=== PATIENT | female | born 1985 | race Caucasian/White ===

== ENCOUNTER 2019-10-22 22:58 | Observation (INO) | payer BC, SELFPAY ==
--- NOTE | ~2019-10-22 | XR_ITS ---
EXAMINATION: XR ankle RT min 3V DATE: 10/22/2019 23:16 INDICATION: Right ankle pain post fall TECHNIQUE: Anteroposterior, oblique, mortise, and lateral views of the right ankle were obtained. COMPARISON: None. FINDINGS: There is an oblique fracture through the distal fibula with a fracture plane exiting medially at the level of the tibiotalar joint. There is up to 4 mm posterior displacement. Transverse fracture across the medial malleolus with up to 6 mm distraction. Coronally oriented fracture across the posterior m alleolus which comprises approximately 20% of the articular surface area of the tibial plafond with 2 mm depression of the articular surface. No fracture of the talar dome or visualized bones of the alban t. There is mild widening of the anterior and medial aspect of the tibiotalar joint space. Remaining joint spaces are normal. Diffuse soft tissue swelling about the ankle. Ankle joint effusion is presen t. IMPRESSION: 1. Trimalleolar fracture at the right ankle with mild displacement along each of the fractures. Reviewed, dictated and finalized at location A. IMPRESSION: 1. Trimalleolar fracture at the right ankle with mild displacement along each o f the fractures.
--- NOTE | ~2019-10-22 | XR_ITS ---
EXAMINATION: XR ankle RT 2V DATE: 10/23/2019 00:01 INDICATION: Postreduction right ankle trimalleolar fracture. TECHNIQUE: Anteroposterior, oblique, mortise, and lateral views of the right ankle were obtained. COMPARISON: None. FINDINGS: Interval reduction and splinting of the previously detailed right ankle trimalleolar fracture. Slight decrease in the mild distraction of the medial malleolus fracture. The mild posterior displacement o f the lateral malleolar fracture and mild depression of the posterior malleolar fracture appear uncha nged. No new fractures identified. Normal alignment in the visualized right mid and hindfoot. IMPRESSION: 1. Slight improvement in mild displacement post reduction and splinting of a right ankle trimalleolar fracture. Reviewed, dictated and finalized at location A. IMPRESSION: 1. Slight improvement in mild displacement post reduction and splinting of a ri ght ankle trimalleolar fracture.
--- NOTE | ~2019-10-22 | CT_ITS ---
EXAMINATION: CT ankle RT wo con DATE: 10/23/2019 08:28 INDICATION: Right ankle trimalleolar fracture TECHNIQUE: High resolution computed tomography (CT) of the right ankle was performed without intraven ous contrast. Additional sagittal and coronal reconstructions were performed. Automated exposure cont rol and iterative reconstruction technique were employed. The dose-length product was 311.15 mGy-cm. COMPARISON: None FINDINGS: Oblique fracture of the distal fibula extending to the medial cortex at the level of the tibiotalar j oint line. There is a 3 mm proximal and 5 mm posterior displacement with negligible anterior angulati on. Transverse fracture across the medial malleolus also the level of the tibiotalar joint line. There is 9 mm distraction at the anterior margin of the fracture, 3 mm at the posterior margin resulting in m ild posterior angulation. Minimally displaced comminuted posterior malleolus fracture. The fragment compressing the largest por tion of the articular surface measures 2.5 x 1.0 cm involving the medial two thirds of the posterior margin of the tibial plafond and is depressed approximately 2 mm. There are few tiny fragments are mi nimally portion of the articular surface along the posterior rim of the lateral third. There is a sec ond larger fragment involving the mid to lateral thirds of the posterior malleolus cephalad to the ar ticular surface of the tibial plafond but which doesn't involve a portion of the posterior aspect of the articulation with the distal fibula. Normal alignment and joint space with no evident fracture within the visualized right mid and hindfoo t. Small tibiotalar joint effusion with a few tiny bone fragments at the anterior recess of the joint space. Soft tissue swelling with subcutaneous edema about the ankle. The flexor and extensor tendons are unremarkable. IMPRESSION: 1. Mildly displaced trimalleolar fracture at the right ankle. Reviewed, dictated and finalized at location A.
--- NOTE | 2019-10-22 23:02 | ED.LOWEXIN ---
HPI - Extremity Injury (Lower) General Chief Complaint: Extremity Injury, Lower Stated Complaint: right ankle/foot pain Time Seen by Provider: 10/22/19 23:00 Source: patient and RN notes reviewed Mode of arrival: other Limitations: no limitations History of Present Illness HPI Narrative: Pt is a 34 y/o female who presents to the ED with c/o right ankle pain that began about 15 minutes ago after she slipped off the edge of the last stair in her staircase. Pt states that she heard a cracking noise. Pt denies her pain radiating to her knee. Pt also denies numbness and tingling. complaint: ankle injury Onset (ago): minute(s) (15) Place: home Context: fall Associated symptoms: other (crack sensation) Other symptoms: none Related Data Allergies Allergy/AdvReac Type Severity Reaction Status Date / Time gluten AdvReac Unknown GI UPSET Verified 04/12/18 19:00 Review of Systems Review of Systems: All systems reviewed & are unremarkable except as noted in HPI and below Musculoskeletal: Musculoskeletal: Reports other (right ankle pain) Neurologic: Denies numbness and Denies tingling PMFSH Past Medical History Medical History (Updated 10/22/19 @ 23:57 by Naty Diaz) Anemia Migraines PCOS (polycystic ovarian syndrome) UTI (urinary tract infection) Surgical History Surgical History (Updated 10/22/19 @ 23:09 by Naty Diaz) H/O bone marrow transplant x5 Hx of section Hx of tonsillectomy Myringotomy tube(s) status Family History Family History (Updated 10/22/19 @ 23:11 by Naty Diaz) Mother Hypertension Diabetes mellitus Father Kidney stone History of nephrectomy Social History Social History (Updated 10/22/19 @ 23:10 by Naty Diaz) Smoking status: Unknown if ever smoked Exam Narrative: Exam Narrative: APPEARANCE: No acute distress, nontoxic, resting in bed Eyes: EOMI HEENT: Normocephalic, atraumatic, RESPIRATORY: No respiratory distress MUSCULOSKELETAl: Right ankle is diffusely tender to palpation no tenderness of the proximal fibula or the base of the fifth metatarsal, dorsalis pedis pulse 2+, neurovascular intact NEURO: Awake and alert. Following commands, speech normal, no focal deficits SKIN:: Warm, dry. Normal Color no rash or lesions Course Course Emergency Course: Discussed with patient and family results of workup and diagnosis. Discussed need for admission. Patient and family understand and agree to current treatment plan Consultations Date: 10/22/19 Time: 23:48 Consultation #2: Discussed case with Dr. Cordoba (Orthopedics). Admit to hospitalist and accepts consult with with plan for OR in the a.m. Date: 10/22/19 Time: 23:53 Consultation #3: Discussed case with Dr. Villa (Hospitalist). Accepts admission. Date: 10/22/19 Time: 23:54 Vital Signs Vital signs: Vital Signs Temperature 98.2 F 10/22/19 23:06 Pulse Rate 85 10/22/19 23:06 Respiratory Rate 18 10/22/19 23:06 Blood Pressure 117/71 10/22/19 23:06 Pulse Oximetry 98 10/22/19 23:06 Temperature 98.2 F 10/22/19 23:06 Pulse Rate 88 10/22/19 23:48 Respiratory Rate 16 10/22/19 23:48 Blood Pressure 123/83 10/22/19 23:48 Pulse Oximetry 99 10/22/19 23:48 Procedures Orthopedic Fracture Reduction Fracture #1: Side: right Fracture Reduction Location: tibia and fibula Pre-Procedure Neuro Vascular Exam: normal Technique: direct manipulation Post Reduction X-rays Demonstrate: acceptable reduction Post-reduction neuro exam: intact Post-reduction vascular exam: intact Splint Applied: Yes Patient Tolerated Procedure: well Orthopedic Splinting/Casting Injury #1: Side: right Lower Extremity Injury Location: lower leg Lower Extremity Immobilizer: posterior splint and stirrup splint Splint: customized in ED Pre-Procedure Neuro Vascular Exam: normal Post-Procedure Neuro Vascular Exa
[2019-10-22 23:06] VITALS: BP 117/71; PULSE 85; RESP 18; TEMP 36.8; O2SAT 98
[2019-10-22] MEDS: ONDANSETRON INJ 4 MG/2 ML VIAL IV PUSH (23:20)
[2019-10-22 23:48] VITALS: BP 123/83; PULSE 88; RESP 16; O2SAT 99
[2019-10-23 00:02] LABS: Basophils Percent Auto 0.4 % (0.2-1.2); Eosinophils Absolute Auto 0.2 K/mm3 (0-0.3); Eosinophils Percent Auto 1.8 % (0-4.4); Hematocrit 37.3 % (37.0-47.0); Hemoglobin 12.3 g/dL (12.0-15.0); Immature Granulocyte Absolute 0.02 K/mm3 (0.00-0.031); Immature Granulocyte Percent A 0.2 % (0-0.5); Lymphocytes Absolute Auto 2.86 K/mm3 (0.9-3.2); Lymphocytes Percent Auto 31.5 % (18.3-44.2); Mean Corpuscular Hemoglobin 28.7 pg (26-34); Mean Corpuscular Volume 86.9 fl (80-100); Mean Platelet Volume 10.1 fl (7.4-10.4); Monocytes Absolute Auto 0.7 K/mm3 (0.1-0.6); Monocytes Percent Auto 7.3 % (2.6-8.5); Neutrophils Absolute Auto 5.4 K/mm3 (1.3-6.7); Neutrophils Percent Auto 58.8 % (45.5-73.1); Platelet Count Result 206 k/mm3 (150-375); Red Blood Count 4.29 M/mm3 (4.2-5.4); White Blood Count 9.1 K/mm3 (4.5-10.0)
[2019-10-23 00:17] LABS: Blood Urea Nitrogen 16 mg/dL (7-17); Carbon Dioxide 27 mmol/L (22-30); Chloride 105 mmol/L (98-107); Estimated Glomerular Filt Rate > 60; Glucose 108 mg/dL (65-105); Potassium 3.5 mmol/L (3.4-5.0); Sodium 137 mmol/L (137-145)
[2019-10-23 00:20] VITALS: BP 137/83; PULSE 70; RESP 18; TEMP 37.1; O2SAT 100
[2019-10-23 00:25] VITALS: BP 123/77; PULSE 84; RESP 16; O2SAT 100; BMI 42.6
[2019-10-23] MEDS: SODIUM CHLORIDE 0.9% IV 1,000 ML 125 ML IV CONT (01:17)
[2019-10-23 01:42] VITALS: BMI 42.6
--- NOTE | 2019-10-23 04:06 | ADMGEN ---
This patient, Tariq Casey, was admitted to [facility] Surg Room 300-01. Patient/family oriented to hospital policies and general routines including ID bracelet, bed and alarms, visiting hours, pain management, procedures, bathroom and other care routines, personal items, smoking policy, room service/diet, and visiting hours. Valuables list has been completed. Information on how to activate the Rapid Response Team has been discussed. Patient/Family are encouraged to report perceived risks to care and to ask questions if they do not understand what they are told or what they should do.
--- NOTE | 2019-10-23 04:56 | PM.IMHP ---
H&P: HPI History of Present Illness Chief complaint: Right trimalleolar facture Narrative: This is a pleasant 34 year old female with known history of PCOS who [facility] with a complaint of an acute fall down her stairs and ambulatory dysfunction. The patient describes going down her carpeted stairs too quickly and slipped. She landed on her right ankle and immediately heard loud cracking sound. She immediately had intense right ankle pain extending up her leg. The patient denies any head trauma or loss of consciousness. She was evaluated [facility] the [facility] and found to have a displaced distal right fibula fracture and displaced distal right tibia fracture. The patient's fractures were reduced in the ER and splint was applied. Ortho has been consulted by ER provider and has asked that we admit the patient to the hospital for them. The patient has no other symptoms today. She is only known to take metformin for her PCOS. No other complaints. Review of Systems Review of Systems: All systems reviewed & are unremarkable except as noted in HPI and below PMFSH Past Medical History Medical History Anemia Migraines PCOS (polycystic ovarian syndrome) UTI (urinary tract infection) Surgical History Surgical History H/O bone marrow transplant x5 Hx of section Hx of tonsillectomy Myringotomy tube(s) status Family History Family History Mother Hypertension Diabetes mellitus Father Kidney stone History of nephrectomy Social History Social History Smoking status: Unknown if ever smoked Alcohol intake: current Substance use: never Gender identity (if verbalized by the patient): Female Spiritual care concerns: No Agree to blood products: Yes Meds Home Medications and Allergies Home Medications Medication Instructions Recorded Confirmed Type metformin 2 tablet PO BID 10/23/19 10/23/19 History Allergies Allergy/AdvReac Type Severity Reaction Status Date / Time gluten AdvReac Unknown GI UPSET Verified 04/12/18 19:00 Vital Signs Vital Signs - 24 hr 10/22/19 23:06 10/22/19 23:48 10/23/19 00:20 Temperature 36.8 C 37.1 C Pulse Rate 85 88 70 Respiratory Rate 18 16 18 Blood Pressure 117/71 123/83 137/83 Pulse Oximetry 98 99 100 10/23/19 00:25 Temperature Pulse Rate 84 Respiratory Rate 16 Blood Pressure 123/77 Pulse Oximetry 100 Exam Const: General: cooperative, healthy appearing, no acute distress, alert and awake Nutritional Appearance: well nourished Orientation/consciousness: patient oriented x3 HENMT: Head: normal to inspection General nose exam: Normal external nose present Face and sinus: normal facial exam Mouth: Yes Normal oral and palatal mucosa present and Yes oropharynx normal Eyes: Pupils: Equal, round and reactive pupils present EOM: EOMs intact bilaterally Neck: Neck: supple and no JVD Thyroid: thyroid normal Lymphatic: lymphadenopathy not noted Resp: Effort & Inspection: normal respiratory effort Auscultation: clear to auscultation bilaterally Cardio: Rate: regular rate Rhythm: regular rhythm Heart sounds: no murmurs GI: Inspection: normal to inspection Auscultation: normal bowel sounds Skin: General skin exam: normal color and no rashes or lesions noted Neuro: General: patient oriented x3 Cranial nerves: Yes CN's II-XII intact bilaterally and Yes Equal, round and reactive pupils present Speech: normal speech Motor exam (neuro): 5/5 motor strength present throughout Sensory Exam: normal sensation Extrem: General: edema Right lower extremity: lower leg (RLE in splint+++ ) Psych: Mental Status: mental status grossly normal Affect: normal affect H&P: Results Labs Labs: Short CBC 10/22/19 Rang
[2019-10-23 06:00] VITALS: BP 117/83; PULSE 69; RESP 18; TEMP 36.6; O2SAT 100
[2019-10-23] MEDS: HYDROMORPHONE HCL 1 MG/ML INJ 2 MG (07:35)
--- NOTE | 2019-10-23 07:43 | PM.CNOR ---
Assessment and Plan Additional Plan PATIENT IS A 34-YEAR-OLD FEMALE CONSULTED TO SEE FOR RIGHT TRIMALLEOLAR ANKLE FRACTURE. she fell last evening stumbling down some stairs sustaining injury. She denies any other injury. X-rays show a trimalleolar ankle fracture with some displacement and a reduction was performed and Reamer inch room which improved the alignment. on the lateral x-ray view there is a significant posterior malleolus fracture with comminution that is concerning. I have ordered a stat CT scan to be done this morning to characterize that more accurately. That characteristic of her fracture increases her risk for posttraumatic arthritis significantly. Her past medical history is significant for morbid obesity with BMI of 42.6. She has polycystic ovarian syndrome and insulin resistance. She states she does not have diabetes. Her glucose last night in the emergency room was mildly elevated at 108. We will check a hemoglobin A1c. she has no personal or family history of blood clot problems. She did take control medication up until about 6 weeks ago and then she stops. I discussed with her that she is at increased risk for thromboembolic events and I would recommend she be on a blood thinner postoperatively. She has no known drug allergies. On exam today she was alert and oriented. She is having moderate pain. She has not received the Tylenol it is ordered and I have changed that to a scheduled Tylenol and also added ibuprofen and we switched the fentanyl to Dilaudid and hopefully this will control her pain better. She is in bed with the leg elevated on 1 pillow. She is able wiggle her toes little bit she denies numbness or tingling to light touch testing over toes on the right foot. she has a splint in place. Her laboratory studies [place] are unremarkable except for glucose of 108. I have discussed with her and that he can't skin will help determine what the optimal surgical approach is to her posterior malleolus fracture. the lateral malleolus would be fix with plate and screws the medial malleolus with probably a single cannulated screw. I have discussed risks of surgery with her in detail. blood clots are going to be a concern because of her morbid obesity and she will need to be on blood thinner postoperatively. We discussed the risk of infection and wound healing problems and the risk of peripheral nerve injury causing numbness on the top of foot and risk of developing posttraumatic arthritis which is probably the highest risk of complications in her situation. We have ordered the CT scan stat this morning and we will make a decision as to how to proceed based on those images. Also I would note that the pain surgical history set was she has history of bone marrow transplant and patient adamantly denies any history of known [facility] marrow transplants I think this is an error and I have removed it from her surgical history list. History of Present Illness HPI Consult date: 10/23/19 Chief complaint: Right trimalleolar facture PMFSH Past Medical History Medical History Anemia Migraines PCOS (polycystic ovarian syndrome) UTI (urinary tract infection) Surgical History Surgical History H/O bone marrow transplant x5 Hx of section Hx of tonsillectomy Myringotomy tube(s) status Family History Family History Mother Hypertension Diabetes mellitus Father Kidney stone History of nephrectomy Social History Social History Smoking status: Unknown if ever smoked Alcohol intake: current Substance use: never Gender identity (if verbalized by the patient): Female Spiritual care concerns: No Agree to blood products: Yes Meds Home Medications and Allergies Home Medications Medication Instruct
[2019-10-23] MEDS: IBUPROFEN IV 800 MG/200 ML 800 MG/200 ML BAG 400 MG IVPB (08:07)
[2019-10-23 10:43] LABS: Hemoglobin A1C 5.3 % (<5.7)
--- NOTE | 2019-10-23 11:00 | PM.IMPN ---
Progress Note: A&P Assessment and Plan (1) Closed displaced trimalleolar fracture of right ankle: Code(s): S82.851A - Displaced trimalleolar fracture of right lower leg, initial encounter for closed fracture Status: Acute Assessment and Plan: Continue iv fluids and pain control with iv ibuprofen, pt going to OR today for surgery to posterior malleolus fracture. The lateral malleolus would be fix with plate and screws the medial malleolus with probably a single cannulated screw (2) PCOS (polycystic ovarian syndrome): Code(s): E28.2 - Polycystic ovarian syndrome Status: Acute Assessment and Plan: Resume metformin tomorrow, pt is currently npo. Can resume diet after surgery. Subjective Date/time seen: 10/23/19 11:00 Interval history: 34 year old female with known history of PCOS who [facility] with a complaint of an acute fall down her stairs and ambulatory dysfunction. Accidentally fall down the stairs slipped, pt hurt the right ankle, Ct ankle shows - displaced distal right fibula fracture and displaced distal right tibia fracture. Pt had post reduction and splinting in the ED, Pt is going down to OR today. For surgery to posterior malleolus fracture. The lateral malleolus would be fix with plate and screws the medial malleolus with probably a single cannulated screw. per Dr Cordoba note. Pt is otherwise doing well no other complaints. Review of Systems Review of Systems: All systems reviewed & are unremarkable except as noted in HPI and below Constitutional: Constitutional: Denies no additional constitutional complaints Cardiovascular: Cardiovascular: Denies no additional cardiovascular complaints Respiratory: Respiratory: Denies no additional respiratory complaints Gastrointestinal: Gastrointestinal: Denies no additional gastrointestinal complaints Musculoskeletal: Comments: R ankle pain Exam Const: General: cooperative, healthy appearing and other (mild distress from ankle pain ) Nutritional Appearance: well nourished Orientation/consciousness: patient oriented x3 Resp: Effort & Inspection: normal respiratory effort Auscultation: clear to auscultation bilaterally Cardio: Rate: regular rate Rhythm: regular rhythm Heart sounds: no murmurs GI: Inspection: normal to inspection Auscultation: normal bowel sounds Extrem: Right lower extremity: normal to inspection (RLL with splint, good sensation and color of toes ) Objective Data Vital Signs Vital Signs: Vital Signs - 24 hr 10/22/19 23:06 10/22/19 23:48 10/23/19 00:20 Temperature 36.8 C 37.1 C Pulse Rate 85 88 70 Respiratory Rate 18 16 18 Blood Pressure 117/71 123/83 137/83 Pulse Oximetry 98 99 100 10/23/19 00:25 10/23/19 06:00 Temperature 36.6 C Pulse Rate 84 69 Respiratory Rate 16 18 Blood Pressure 123/77 117/83 Pulse Oximetry 100 100 Intake/Output Intake/Output: Intake & Output 10/20/19 10/21/19 10/22/19 10/23/19 23:59 23:59 23:59 23:59 Intake Total 85 Output Total 300 Balance -215 Meds/Results Medications: Active Medications Generic Name Dose Route Start Last Admin Trade Name Freq PRN Reason Stop Dose Admin Acetaminophen 1,000 mg 10/23/19 11:55 Tylenol Tablet PO Q6H [facility] Celecoxib 200 mg 10/23/19 17:00 Celebrex PO BIDWM [facility] Docusate Sodium 100 mg 10/23/19 21:00 Colace Capsule PO Q12HR [facility] Enoxaparin Sodium 30 mg 10/23/19 11:00 Lovenox SUB-Q Q12HR [facility] Fentanyl Citrate 50 mcg 10/22/19 23:58 10/23/19 05:54 Sublimaze IV PUSH 50 mcg Q2H PRN Administration Pain Rated 7-10 Sodium Chloride 1,000 mls @ 125 mls/hr 10/22/19 23:45 10/23/19 01:17 Normal Saline Iv IV CONT 125 mls/hr .Q8H [facility] Administration Metformin HCl 1,000 mg 10/23/19 09:00 Glucophage PO BID [facility] Oxycodone HCl 5 mg 10/23/19 10:51 Roxicodone Ir Tablet PO Q4H PRN Pain Rated 7-10
--- NOTE | 2019-10-23 11:07 | PM.CNOR ---
Assessment and Plan Additional Plan I reviewed the CT scan of the right ankle which demonstrates posterior malleolus fracture that extends across the entire width of the posterior tibial plafond and broken into medial and lateral halves which I believe is a type 3 posterior malleolus fracture and this fracture would be most optimally addressed with anatomic reduction and fixation from application specialist lateral and application specialist medial approaches. Also there is comminution and some segmental subchondral bone fragmentation. I spoke with Dr. Murphy orthopedic trauma at [facility]. He advised me that he would be happy to accept this patient for definitive surgical treatment. I have discussed with the patient today have no personal experience with a application specialist medial approach which does have some neurovascular risk and for this reason I would recommend that she be referred to a orthopedic traumatology subspecialist. He would prefer to see her on an outpatient basis minimizing her inpatient exposure to Covid19. Because of her morbid obesity and we will use I Lovenox 30 mg subcu Q12. For pain control I am prescribing Celebrex Tylenol and oxycodone. I have provided Dr. Murphy with patient's cell phone number and his office will be calling her today for scheduling arrangements. For discharge today of course is contingent on her being able to transfer and walk a few steps maintaining nonweightbearing on the right leg and we will have Physical therapy work with her this morning training her to use a walker to accomplish this. If she is unable to accomplish these goals then palpation [facility] facility would be necessary for her during her convalescence. History of Present Illness HPI Consult date: 10/23/19 Chief complaint: Right trimalleolar facture PMFSH Past Medical History Medical History (Updated 10/23/19 @ 05:01 by Vincenzo Villa MD) Anemia Migraines PCOS (polycystic ovarian syndrome) UTI (urinary tract infection) Surgical History Surgical History (Updated 10/23/19 @ 07:54 by Marcio Cordoba MD) Hx of section Hx of tonsillectomy Myringotomy tube(s) status Family History Family History Mother Hypertension Diabetes mellitus Father Kidney stone History of nephrectomy Social History Social History Smoking status: Unknown if ever smoked Alcohol intake: current Substance use: never Gender identity (if verbalized by the patient): Female Spiritual care concerns: No Agree to blood products: Yes Meds Home Medications and Allergies Home Medications Medication Instructions Recorded Confirmed Type metformin 2 tablet PO BID 10/23/19 10/23/19 History oxycodone 5 mg PO Q4H PRN #60 tablet 10/23/19 Rx Allergies Allergy/AdvReac Type Severity Reaction Status Date / Time gluten AdvReac Unknown GI UPSET Verified 04/12/18 19:00 Vital Signs Vital Signs - 24 hr 10/22/19 23:06 10/22/19 23:48 10/23/19 00:20 Temperature 36.8 C 37.1 C Pulse Rate 85 88 70 Respiratory Rate 18 16 18 Blood Pressure 117/71 123/83 137/83 Pulse Oximetry 98 99 100 10/23/19 00:25 10/23/19 06:00 Temperature 36.6 C Pulse Rate 84 69 Respiratory Rate 16 18 Blood Pressure 123/77 117/83 Pulse Oximetry 100 100 Results Labs Result Diagrams: 10/22/19 23:58 10/22/19 23:58 Labs: Abnormal lab results 10/22/19 10/22/19 Range/Units 23:58 23:58 [place] # (Auto) 0.7 H (0.1-0.6) K/mm3 Glucose 108 H (65-105) mg/dL H & H 10/22/19 Range/Units 23:58 Hgb 12.3 (12.0-15.0) g/dL Hct 37.3 (37.0-47.0) % All other labs normal. Quality VTE Prophylaxis VTE prophylaxis: mechanical ordered
[2019-10-23 11:30] LABS: Vitamin D 25 Hydroxy 34.1 ng/mL
[2019-10-23] MEDS: polyethylene glycoL 3350 17 GM POWD.PACK PO (12:46)
[2019-10-23] MEDS: ENOXAPARIN 30 MG/0.3 ML SYRINGE SUB-Q (12:46)
--- NOTE | 2019-10-23 12:50 | PCPTNOTE ---
Attempted to teach and instruct patient safety with ADs on stairs. Pt states she'll figure it out on her own and refuses education/demonstration of safety on stairs with ADs.
[2019-10-23] MEDS: ACETAMINOPHEN 500 MG TABLET 1000 MG PO (13:12)
--- NOTE | 2019-10-23 13:38 | PM.DS ---
DS: Diagnosis Admitting Diagnosis Admitting Diagnosis: Displaced trimalleolar fracture of right lower leg, initial encounter for closed fracture Discharge Diagnosis (1) Closed displaced trimalleolar fracture of right ankle: Code(s): S82.851A - Displaced trimalleolar fracture of right lower leg, initial encounter for closed fracture Status: Acute Assessment and Plan: Pt had pain control with iv ibuprofen, pt going to OR today for surgery to posterior malleolus fracture. The lateral malleolus would be fix with plate and screws the medial malleolus with probably a single cannulated screw (2) PCOS (polycystic ovarian syndrome): Code(s): E28.2 - Polycystic ovarian syndrome Status: Acute Assessment and Plan: Resume metformin and diet after surgery. DS: Summary Time Spent with Patient Time attestation: Total time spent providing and/or coordinating discharge services:38 minutes on day of discharge Exam Const: General: cooperative, healthy appearing and other (mild distress from ankle pain ) Nutritional Appearance: well nourished Orientation/consciousness: patient oriented x3 HENMT: Head: normal to inspection General nose exam: Normal external nose present Face and sinus: normal facial exam Mouth: Yes Normal oral and palatal mucosa present and Yes oropharynx normal Eyes: Pupils: Equal, round and reactive pupils present EOM: EOMs intact bilaterally Neck: Neck: supple and no JVD Thyroid: thyroid normal Lymphatic: lymphadenopathy not noted Resp: Effort & Inspection: normal respiratory effort Auscultation: clear to auscultation bilaterally Cardio: Rate: regular rate Rhythm: regular rhythm Heart sounds: no murmurs GI: Inspection: normal to inspection Auscultation: normal bowel sounds Skin: General skin exam: normal color and no rashes or lesions noted Neuro: General: patient oriented x3 Cranial nerves: Yes CN's II-XII intact bilaterally and Yes Equal, round and reactive pupils present Speech: normal speech Motor exam (neuro): 5/5 motor strength present throughout Sensory Exam: normal sensation Extrem: General: edema Right lower extremity: normal to inspection (RLL with splint, good sensation and color of toes ) Psych: Mental Status: mental status grossly normal Affect: normal affect DS: Data Data Completed and Pending Labs on day of discharge: Labs from last 24 hours 10/23/19 10/23/19 10/22/19 10:01 10:01 23:58 WBC RBC Hgb Hct MCV MCH MCHC RDW Plt Count MPV Immature Gran % (Auto) Neut % (Auto) Lymph % (Auto) [place] % (Auto) Eos % (Auto) Baso % (Auto) Lymph # (Auto) [place] # (Auto) Eos # (Auto) Baso # (Auto) Abs Immat Gran (auto) Absolute Neuts (auto) Absolute Nucleated RBC Nucleated RBC % Sodium 137 Potassium 3.5 Chloride 105 Carbon Dioxide 27 BUN 16 Creatinine 0.70 Estim Creat Clear Calc Not Reportable Estimated GFR > 60 Glucose 108 H Hemoglobin A1c 5.3 Calcium 9.0 Vitamin D 25-Hydroxy 34.1 10/22/19 23:58 WBC 9.1 RBC 4.29 Hgb 12.3 Hct 37.3 MCV 86.9 MCH 28.7 MCHC 33.0 RDW 13.0 Plt Count 206 MPV 10.1 Immature Gran % (Auto) 0.2 Neut % (Auto) 58.8 Lymph % (Auto) 31.5 [place] % (Auto) 7.3 Eos % (Auto) 1.8 Baso % (Auto) 0.4 Lymph # (Auto) 2.86 [place] # (Auto) 0.7 H Eos # (Auto) 0.2 Baso # (Auto) 0.0 Abs Immat Gran (auto) 0.02 Absolute Neuts (auto) 5.4 Absolute Nucleated RBC 0.0 Nucleated RBC % 0.0 Sodium Potassium Chloride Carbon Dioxide BUN Creatinine Estim Creat Clear Calc Estimated GFR Glucose Hemoglobin A1c Calcium Vitamin D 25-Hydroxy Discharge Plan Discharge Attending physician on discharge: Dora Yuan Consulting providers: Marcio Cordoba Discharging Clinician: Marcio Cordoba Anticipated Discharge Date/Time: 10/23/19 13:38 Patient Disposition: Home, Self-Ca
== END 2019-10-23 14:10 | disposition home or self-care (01) ==
LOC: ANHED 10-23 → ANH3MEDSUR 10-23 00:56
PROVIDERS: Orthopaedic Surgery; Admitting Provider Family Medicine; Emergency Provider Emergency Medicine; PCP Family Medicine; Visit Provider Family Medicine
DX: S82.851A Displaced trimalleolar fracture of right lower leg, initial encounter for closed fracture (principal); W10.8XXA Fall (on) (from) other stairs and steps, initial encounter; E28.2 Polycystic ovarian syndrome; E66.01 Morbid (severe) obesity due to excess calories; Z68.41 Body mass index [BMI] 40.0-44.9, adult; Z79.84 Long term (current) use of oral hypoglycemic drugs; Z28.21 Immunization not carried out because of patient refusal
CPT/HCPCS: 27818; 36415; 73600; 73610; 73700; 80048; 82306; 83036; 85025; 87081; 96361; 96372; 96374; 96375; 96376; 97161; 99285; A9270; G0378; J0131; J1170; J1650; J1741; J2405; J3010; J7030

== ENCOUNTER 2020-03-27 12:30 | Outpatient (RCR) | payer BC, SELFPAY ==
--- NOTE | 2019-12-28 13:48 | PTOPEVAL ---
PHYSICAL THERAPY EVALUATION AND PLAN OF CARE Thank you for referring Tariq Casey to [facility]. I recommend Tariq participate in physical therapy 2x/week for 4-8weeks. Please review, sign, date and return this plan of care BOBBY. I agree with and certify that the following plan of care is medically necessary. Referring Physician Date Evaluation Evaluation Information Diagnosis right ankle closed trimalleolar fracture Onset 10/27/2019 Subjective Information Tariq fell down the stairs Query Text:As Reported By Patient/ and fractured her right ankle. Family She was in a hard cast for 4 weeks then a boot for 4 weeks. With the boot, she had been instructed to take off twice a day and rotate the ankle. She reports that she has minimal pain except with there is swelling. The entire lower leg will swell when she has been on the leg throughout the day. She is WBAT. Pain Assessment Timing of Pain Assessment Timing of Pain Assessment Assessment Pain Scale Pain Scale Used Numeric (1 - 10) Self Report Pain Assessment Right Ankle(s) Reported Pain Level 2 Pain Description Tingling Pain Frequency Acute,Intermittent Lowest Pain Intensity 0 Greatest Pain Intensity 6 Pain Score Pain Score 2: Self Report Lower Extremity Range of Motion Ankle/Foot Range of Motion Right Ankle Dorsiflextion With Knee Flexed -15 Range of Motion - Active Ankle Dorsiflextion With Knee Flexed -13 Range of Motion - Passive Ankle Plantarflexion Range of Motion - 55 Active Query Text: Ankle Eversion Range of Motion - Active 5 Ankle Inversion Range of Motion - Active 14 Ankle Range of Motion Comments reports eversion pulls on lateral aspect Hip Strength Right Hip Flexion Strength 5 Normal Hip Extension Strength 4+ Good + Hip Abduction Strength 4+ Good + Knee Strength Right Knee Flexion Strength 5 Normal Knee Extension Strength 4+ Good + Ankle Strength Right Ankle Dorsiflexion Strength 3+ Fair + Ankle Plantarflexion Strength 3+ Fair + Ankle Eversion Strength 3+ Fair + Ankle Inversion Strength 3+ Fair + Palpation 3 incision sites all well healed: posterior medial incision site presents with
--- NOTE | 2020-01-29 13:21 | PTOPEVAL ---
PHYSICAL THERAPY PLAN OF CARE UPDATE AND PROGRESS REPORT Thank you for referring Tariq Casey to [facility]. I recommend Tariq continue physical therapy 2x/week for 4 weeks. Please review, sign, date and return this plan of care BOBBY. I agree with and certify that the following plan of care is medically necessary. Referring Physician Date Progress Outpatient Past Medical History Past Medical History No Past Medical/Surgical History Patient/Family Denies Significant Past Medical/ Surgical History Evaluation Information Problem Diagnosis right ankle closed trimalleolar fracture Onset 10/27/2019 Subjective Information Tariq has participated in Query Text:As Reported By Patient/ physical therapy for 1 month. Family She is frustrated at the slow pace of recovery but knows she needs to be patient. She does see changes in how the ankle feels and the way she walks. Pain Assessment Timing of Pain Assessment Timing of Pain Assessment Pre-Treatment Pain Scale Pain Scale Used Numeric (1 - 10) Self Report Pain Assessment Right Ankle(s) Reported Pain Level 3 Pain Description Soreness Pain Frequency Intermittent Pain Aggravating Factors Exercise/Activity,Stair Climbing,Walking,Weight Bearing/Standing Pain Score Pain Score 3: Self Report Additional Pain Score Comments feels more sore today Lower Extremity Range of Motion Ankle/Foot Range of Motion Right Ankle Dorsiflextion With Knee Flexed -8 Range of Motion - Active Ankle Eversion Range of Motion - Active 13 Ankle Inversion Range of Motion - Active 20 Lower Extremity Muscle Strength Testing Hip Strength Right Hip Flexion Strength 5 Normal Hip Extension Strength 4+ Good + Hip Abduction Strength 4+ Good + Knee Strength Right Knee Flexion Strength 5 Normal Knee Extension Strength 5 Normal Ankle Strength Right Ankle Dorsiflexion Strength 4- Good - Ankle Plantarflexion Strength 4- Good - Ankle Eversion Strength 4- Good - Ankle Inversion Strength 4- Good - Palpation 3 incision sites all well healed: improved scars - anterior incision continues to have a scar tissue restriction along line of site PT Clinical Summary Tariq is a 34 yo female participating in physicla therapy for right ankle
--- NOTE | 2020-02-29 07:57 | PCPTNOTE ---
Patient called & cancelled scheduled appointment this date no reason given.
--- NOTE | 2020-03-06 10:50 | PTOPEVAL ---
PHYSICAL THERAPY PROGRESS REPORT AND PLAN OF CARE UPDATE Thank you for referring Tariq Casey to [facility]. Tariq is scheduled 2x/week for 4 weeks for PT. Please review, sign, date and return this plan of care BOBBY. I agree with and certify that the following plan of care is medically necessary. Referring Physician Date Progress Diagnosis right ankle closed trimalleolar fracture Onset 10/27/2019 Subjective Information Tariq has participated in Query Text:As Reported By Patient/ physical therapy for 2 month. Family Continues to see improvement despite it being slow. Walking hills are very difficult. There is generally a lot of stiffness in the mornings. She is having more pain this morning than normally - possibly due to weather. Self Report Pain Assessment Right Ankle(s) Reported Pain Level 5 Pain Description Aching,Soreness,Tightness Pain Frequency Intermittent Pain Score Pain Score 5: Self Report Additional Pain Score Comments feels more sore today Lower Extremity Range of Motion Ankle/Foot Range of Motion Right Ankle Dorsiflextion With Knee Flexed -5 Range of Motion - Active Ankle Dorsiflextion With Knee Flexed -3 Range of Motion - Passive Ankle Plantarflexion Range of Motion - 45 Active Query Text: Ankle Eversion Range of Motion - Active 13 Ankle Eversion Range of Motion - Passive 16 Ankle Inversion Range of Motion - Active 30 Lower Extremity Muscle Strength Testing Hip Strength Right Hip Flexion Strength 5 Normal Hip Extension Strength 4+ Good + Hip Abduction Strength 4+ Good + Knee Strength Right Knee Flexion Strength 5 Normal Knee Extension Strength 5 Normal Ankle Strength Right Ankle Dorsiflexion Strength 4+ Good + Ankle Eversion Strength 4 Good Ankle Inversion Strength 4 Good Ankle Strength Comments unilateral heel raises x2 - very painful and difficult; eccentric heel raises performed; SLS on right = 10seconds; single leg heel raise x60# Palpation Assessment Palpation Palpation all 3 incision sites improving in mobility, minor limitation noted at distal ends Gait Assessment Gait Pattern Assessment Gait Pattern Antalgic Gait Gait Pattern Observed
--- NOTE | 2020-03-21 11:21 | PCPTNOTE ---
Pt no showed for today's appointment. Called pt she stated by her [id number] out schedule , she was supposed to come in tomorrow at 9:45 not today. Pt does know she is to come in on the at 11:00 am
--- NOTE | 2020-03-28 09:41 | PCPTNOTE ---
This treatment is being continued on visit number [id number]. Please see documentation on both accounts to view progress. Completed interventions, outcomes, and problems have been marked as Inactive to facilitate the copying of the Care plan routine for recurring accounts.
== END 2020-03-27 23:59 | disposition home or self-care (01) ==
LOC: ANHPT 12:30
PROVIDERS: PCP Family Medicine
DX: S82.851D Displaced trimalleolar fracture of right lower leg, subsequent encounter for closed fracture with routine healing (principal)
CPT/HCPCS: 97110; 97140; 97161

== ENCOUNTER 2020-04-03 13:00 | Outpatient (RCR) | payer BC, SELFPAY ==
--- NOTE | 2020-03-28 09:40 | PCPTNOTE ---
The treatment documented on this account is a continuation of the treatment documented on visit number [id number]. Please see documentation on both accounts to view progress. The Plan of Care has been transitioned and updated within the new V#. I have addressed and agree with the discipline specific Problems, Interventions, and Goals for the current certification period. Completed interventions, outcomes, and problems have been marked as Inactive to facilitate the copying of the Care plan routine for recurring accounts.
--- NOTE | 2020-04-02 09:11 | PCPTNOTE ---
Patient called & cancelled scheduled appointment this date. no reason provided. Called and left a message to determine next steps.
--- NOTE | 2020-04-03 13:24 | PTOPEVAL ---
PHYSICAL THERAPY DISCHARGE NOTE Thank you for referring Tariq Casey to [facility].? Please review, sign, date and return this plan of care BOBBY. I agree with and certify that the following plan of care is medically necessary. Referring Physician Date Discharge Outpatient Past Medical History Past Medical History No Past Medical/Surgical History Patient/Family Denies Significant Past Medical/ Surgical History Pain Assessment Timing of Pain Assessment Timing of Pain Assessment Pre-Treatment Self Report Self Report Pain Level 0 Pain Score Pain Score 0: Self Report Additional Pain Score Comments post treatment: 3/5 Lower Extremity Range of Motion Ankle/Foot Range of Motion Right Ankle Dorsiflextion With Knee Extension -2 Range of Motion - Active Ankle Dorsiflextion With Knee Extension 0 Range of Motion - Passive Ankle Plantarflexion Range of Motion - 50 Active Query Text: Ankle Eversion Range of Motion - Active 18 Ankle Inversion Range of Motion - Active 32 Lower Extremity Muscle Strength Testing Ankle Strength Right Ankle Dorsiflexion Strength 5 Normal Ankle Plantarflexion Strength 4 Good Ankle Eversion Strength 5 Normal Ankle Inversion Strength 5 Normal Toe Strength Comments unilateral heel raises x4 - very off balance with significant compensation; SLS on right = 10seconds; toe walking: x25ft; heel walking: x25ft but very diffiult PT Clinical Summary Tariq is a 34 yo female participating in physicla therapy for right ankle fracture with ORIF. Tariq's ROM has progress well except dorsiflexion seems to have plateaued. She is also demonstrating improved strength in all planes with improved gastroc strength and improved balance/stability. Her gastroc strength remains less than functional, however, and she is encouraged to increase intentional home exercise program. Discussed HEP and performing regularly in order to increase strength of right ankle. Discussed how doing at home everyday will be most effecti
== END 2020-04-03 13:55 | disposition home or self-care (01) ==
LOC: ANHPT 13:00
PROVIDERS: PCP Family Medicine
DX: S82.851D Displaced trimalleolar fracture of right lower leg, subsequent encounter for closed fracture with routine healing (principal)
CPT/HCPCS: 97110; 97140

== ENCOUNTER → 2020-09-13 14:04 | Outpatient (CLI) | payer BC, SELFPAY ==
--- NOTE | ~2020-09-13 | US_ITS ---
EXAMINATION: US thyroid EXAM DATE: 09/13/2020 14:24 INDICATION: Goiter. TECHNIQUE: Multiple grayscale and Doppler images of the thyroid were obtained (by a technologist who performed the scan) and subsequently reviewed. Individual nodules and recommendations may be reporte d in accordance with TI-RADS system as designated by the 2017 ACR White Paper TI-RADS committee. The re is no prior study for comparison. FINDINGS: The right thyroid lobe measures 6.2 x 1.9 x 1.7 cm, the left measuring 5.1 x 1.5 x 1.9 cm, mild to mo derately enlarged. There is mildly heterogeneous thyroid echogenicity. There is a 7 mm category TR 4 nodule in the right thyroid lobe inferiorly, not likely clinically significant. IMPRESSION: 1. Goiter, solitary small thyroid nodule. Return to clinical follow-up and if additional palpable abnormality develops a repeat ultrasound can be obtained. Reviewed, dictated and finalized at location A. TICING UROLOGIST
== END ==
PROVIDERS: PCP Family Medicine; Visit Provider Internal Medicine Endocrinology, Diabetes & Metabolism
DX: E04.1 Nontoxic single thyroid nodule (principal)
CPT/HCPCS: 76536

== ENCOUNTER 2021-04-23 18:02 | Emergency (ER) | payer BC, SELFPAY ==
[2021-04-23 18:14] VITALS: BP 115/82; PULSE 121; RESP 18; TEMP 37.9; O2SAT 100
--- NOTE | 2021-04-23 18:41 | ED.FEMALEGU ---
HPI - Female Genitourinary General Chief complaint: Urogenital-Female Stated complaint: Fever,Congestion Time Seen by Provider: 04/23/21 18:41 Source: patient, RN notes reviewed and old records reviewed Mode of arrival: ambulatory Limitations: no limitations History of Present Illness HPI Narrative: 36 year old female with complaints of urinary frequency and pain and burning with urination that started about a week ago. Patient also states that she has some right flank pain and has started running a fever today up to 101.4F with body aches.. Patient denies any sore throat, nasal congestion or drainage, no ear pain, cough or any nausea or vomiting or diarrhea. Patient denies any history of previous kidney stone formations.She denies any vaginal discharge or any itching or any concerns for STD exposure. Patient reports that she has been vaccinated for COVID. MD elicited complaint: dysuria, UTI and flank pain (right) Related Data Home Medications Medication Instructions Recorded Confirmed metformin 2 tablet PO BID 10/23/19 04/23/21 cholecalciferol (vitamin D3) 50 mcg PO DAILY 04/23/21 04/23/21 hydroxychloroquine 200 mg PO DAILY 04/23/21 04/23/21 levothyroxine 50 mcg PO DAILY 04/23/21 04/23/21 rizatriptan 10 mg PO DAILY 04/23/21 04/23/21 spironolactone 50 mg PO DAILY 04/23/21 04/23/21 Allergies Allergy/AdvReac Type Severity Reaction Status Date / Time gluten AdvReac Intermediate GI UPSET Verified 04/23/21 18:28 Review of Systems Review of Systems: CONSTITUTIONAL: Positive fever, chills, or sweats. EYES: Denies visual changes, redness, or discharge. ENT: Denies rhinorrhea, congestion, sore throat, or otalgia. CARDIOVASCULAR: Denies chest pain, palpitations, or edema. RESPIRATORY: Denies cough or dyspnea. GASTROINTESTINAL: Denies abdominal pain, nausea, vomiting, or diarrhea. GENITOURINARY:Positive for dysuria or hematuria. SKIN: Denies rash or itching. MUSCULOSKELETAL: Denies back pain, joint pain, or myalgia. NEUROLOGIC: Denies headache, numbness, or weakness. PSYCHIATRIC: Denies anxiety or depression. All systems reviewed & are unremarkable except as noted in HPI and below PMFSH Past Medical History Medical History Anemia Migraines PCOS (polycystic ovarian syndrome) UTI (urinary tract infection) Surgical History Surgical History Hx of section Hx of tonsillectomy Myringotomy tube(s) status Family History Family History Mother Hypertension Diabetes mellitus Father Kidney stone History of nephrectomy Social History Social History (Updated 04/26/21 @ 15:54 by Sylwia Green NP) Smoking status: Never smoker Alcohol intake: current Substance use: never Living arrangements: with family Gender identity (if verbalized by the patient): Female Spiritual care concerns: No Agree to blood products: Yes Comments At time of signature, agree with nursing past medical, surgical, social and family history. There is no relevant family history pertinent to the presenting complaint Exam Narrative: GENERAL: Well-appearing, well-nourished, and in no acute distress. HEAD: Normocephalic, atraumatic. EYES: PERRLA and EOMI. ENT: Nares clear, no rhinorrhea or epistaxis. Mucous membranes moist.TM's normal with good light reflex, throat pink with no lesions or exudates, tonsil absent NECK: Supple. no lymphadenopathy CHEST: Clear to auscultation. No respiratory distress.SAO2 100% on room air HEART: Regular rate and rhythm. No murmur heard. Normal peripheral pulses ABDOMEN: Soft, nontender on palpation, nondistended, normal active bowel sounds.Right Flank tenderness on examination with no radiation to abdomen EXTREMITIES: Normal range of motion. No edema. SKIN: Warm, dry, no rash. NEURO: No focal deficits. Alert and oriented x3. Course V
== END 2021-04-23 19:10 | disposition home or self-care (01) ==
PROVIDERS: Emergency Provider Registered Nurse; PCP Family Medicine
DX: N39.0 Urinary tract infection, site not specified (principal); Z20.822 Contact with and (suspected) exposure to COVID-19; E28.2 Polycystic ovarian syndrome; D64.9 Anemia, unspecified
CPT/HCPCS: 81003; 87077; 87086; 87088; 87186; 87426; 99213; C9803; G0463

== ENCOUNTER 2022-10-19 09:16 | Emergency (ER) | payer OTHER, SELFPAY ==
[2022-10-19 09:54] VITALS: BP 141/72; PULSE 74; RESP 15; TEMP 36.1; O2SAT 100
--- NOTE | 2022-10-19 10:18 | ED.URI ---
HPI - URI/Sore Throat General Chief Complaint: Upper Respiratory Infection Stated Complaint: neck and rt shoulder pain Time Seen by Provider: 10/19/22 10:18 Source: patient Mode of arrival: ambulatory Limitations: no limitations History of Present Illness HPI Narrative: 37-year-old female presents with complaint of pain to right side of neck for approximately 1 week. Patient reports that she was recently sick with cold-like symptoms that have resolved. Reports that neck was worse with coughing. Now having pain to neck with movement, stiffness. Is not taking any [id number] medications to treat her symptoms. Denies injury. All systems reviewed and negative except as noted above. Related Data Home Medications Medication Instructions Recorded Confirmed metformin 2 tablet PO BID 10/23/19 10/19/22 cholecalciferol (vitamin D3) 50 50 mcg PO DAILY 04/23/21 10/19/22 mcg (2,000 unit) capsule hydroxychloroquine 200 mg tablet 200 mg PO DAILY 04/23/21 10/19/22 levothyroxine 50 mcg tablet 50 mcg PO DAILY 04/23/21 10/19/22 rizatriptan 10 mg disintegrating 10 mg PO DAILY 04/23/21 10/19/22 tablet Allergies Allergy/AdvReac Type Severity Reaction Status Date / Time gluten AdvReac Intermediate GI UPSET Verified 10/19/22 09:57 Review of Systems Review of Systems: CONSTITUTIONAL: Denies fever, chills, or sweats. EYES: Denies visual changes, redness, or discharge. ENT: Denies rhinorrhea, congestion, sore throat, or otalgia. CARDIOVASCULAR: Denies chest pain, palpitations, or edema. RESPIRATORY: Denies cough or dyspnea. GASTROINTESTINAL: Denies abdominal pain, nausea, vomiting, or diarrhea. GENITOURINARY: Denies dysuria or hematuria. SKIN: Denies rash or itching. MUSCULOSKELETAL: Denies back pain, joint pain, or myalgia. Reports right-sided neck pain. NEUROLOGIC: Denies headache, numbness, or weakness. PSYCHIATRIC: Denies anxiety or depression. All other systems reviewed are negative, except as documented in HPI. [facility] Past Medical History Medical History Anemia Migraines PCOS (polycystic ovarian syndrome) UTI (urinary tract infection) Surgical History Surgical History Hx of section Hx of tonsillectomy Myringotomy tube(s) status Family History Family History Mother Hypertension Diabetes mellitus Father Kidney stone History of nephrectomy Social History Social History (Updated 04/26/21 @ 15:54 by Sylwia Green NP) Smoking status: Never smoker Alcohol intake: current Substance use: never Living arrangements: with family Gender identity (if verbalized by the patient): Female Spiritual care concerns: No Agree to blood products: Yes Comments At time of signature, agree with nursing past medical, surgical, social and family history. There is no relevant family history pertinent to the presenting complaint. Exam Narrative: GENERAL: This is a well-nourished, well-developed patient, in no apparent distress. HEAD: normocephalic, atraumatic. EYES: PERRL. Sclera clear/white. Vision is grossly intact. EARS: External ears normal, auditory canals clear and without drainage, TMs normal without perforation. Hearing grossly intact. NOSE: External nose normal with no obvious nasal discharge, nares without redness, no rhinorrhea. THROAT: Mucous membranes moist, posterior pharynx clear. NECK: Neck supple, without lymphadenopathy, masses or thyromegaly. tenderness to R trapezius on palpation and with passive ROM. CARDIOVASCULAR: Regular rate and rhythm without murmurs, gallops, or rubs. RESPIRATORY: Clear to auscultation. Breath sounds equal bilaterally. No wheezes, rales, or rhonchi. SKIN: warm, Dry, intact with no suspicious lesions or rash, good texture and turgor. NEURO: awake, alert, and oriented to person, place a
== END 2022-10-19 10:28 | disposition home or self-care (01) ==
PROVIDERS: Emergency Provider Nurse Practitioner Family; PCP Family Medicine
DX: S16.1XXA Strain of muscle, fascia and tendon at neck level, initial encounter (principal); Z79.84 Long term (current) use of oral hypoglycemic drugs; X58.XXXA Exposure to other specified factors, initial encounter
CPT/HCPCS: 99213; G0463

== ENCOUNTER → 2023-01-06 10:02 | Outpatient (CLI) | payer OTHER, SELFPAY ==
--- NOTE | ~2023-01-06 | US_ITS ---
EXAMINATION: US transvaginal DATE: 01/07/2023 12:16 INDICATION: History of ovarian cyst. Comparison:06/17/2019 TECHNIQUE: Multiple endovaginal sonographic images of the pelvis performed. FINDINGS: The uterus measures 9.7 x 4.4 x 5.1 cm. There is a hypoechoic mass measuring 2.7 x 2.5 x 2. 4 cm compatible with a fibroid. The endometrial complex measures 8 mm. The ovaries are not visualized. There is no free fluid in the pelvis. There are no abnormal masses seen on either side. IMPRESSION: 1. Mildly prominent uterus containing a 2.7 cm fibroid. Reviewed, dictated and finalized at location L.
== END ==
PROVIDERS: PCP Physician Assistant; Visit Provider Physician Assistant
DX: N83.209 Unspecified ovarian cyst, unspecified side (principal); D25.9 Leiomyoma of uterus, unspecified
CPT/HCPCS: 76830

== ENCOUNTER 2023-04-16 11:32 | Outpatient (CLI) | payer OTHER, SELFPAY ==
[2023-04-16 12:17] LABS: Basophils Percent Auto 0.5 % (0.2-1.2); Eosinophils Absolute Auto 0.1 K/mm3 (0-0.3); Hematocrit 41.3 % (37.0-47.0); Hemoglobin 13.8 g/dL (12.0-15.0); Immature Granulocyte Absolute 0.03 K/mm3 (0.00-0.031); Immature Granulocyte Percent A 0.4 % (0-0.5); Mean Corpuscular HGB Conc 33.4 g/dl (32-36); Mean Corpuscular Volume 86.8 fl (80-100); Mean Platelet Volume 10.2 fl (7.4-10.4); Monocytes Absolute Auto 0.7 K/mm3 (0.1-0.6); Monocytes Percent Auto 8.2 % (2.6-8.5); Neutrophils Absolute Auto 4.8 K/mm3 (1.3-6.7); Neutrophils Percent Auto 60.9 % (45.5-73.1); Platelet Count Result 308 k/mm3 (150-375); Red Blood Count 4.76 M/mm3 (4.2-5.4); Red Cell Distribution Width 13.1 % (11.5-14.5); White Blood Count 7.9 K/mm3 (4.5-10.0)
== END 2023-04-16 11:33 | disposition home or self-care (01) ==
LOC: ANHSURGERY 11:37
PROVIDERS: PCP Family Medicine; Visit Provider Obstetrics & Gynecology
DX: N94.6 Dysmenorrhea, unspecified (principal); Z01.818 Encounter for other preprocedural examination
CPT/HCPCS: 36415; 85025; 86850; 86900; 86901

== ENCOUNTER 2023-04-23 01:48 | Day surgery (SDC) | payer OTHER, SELFPAY ==
[2023-04-15 13:37] VITALS: BMI 44.9
--- NOTE | 2023-04-15 13:41 | SUR.PREOP ---
Report to the Outpatient Waiting Room, entrance under the green pavilion located off [facility], at time 0930 on date 04/23/23. Planned Procedure Time: 1130. Time changes happen often and if your time is changed the preop area will call you the afternoon before. - You and your visitor will be asked to self-screen and do not enter if you have any COVID symptoms. - A mask is optional within the hospital at this time. Patients may have clear liquids (water, carbonated beverages, clear teas, apple juice) until 3 hours prior to surgery with a maximum of 20 ounces. - No food from midnight until time of surgery BEFORE 0830 AM - Infants may have breast milk until 4 hours before surgery, infant formula 6 hours prior to surgery. - Children will be allowed to drink immediately following surgery. If applicable, please bring a bottle or sippy cup to assist with drinking. Juice, water, soda, and popsicles are readily available. For infants on formula, please bring formula the day of surgery. Pacifiers are allowed. Take the following medications with a SIP of water the morning of surgery: LEVOTHYROXINE DO NOT STOP ANY OF YOUR OTHER PRESCRIPTION MEDICATIONS PRIOR TO SURGERY ?EXCEPT THE FOLLOWING Medications to discontinue per physician Date to take last dose Please no make-up, nail palauan, hairspray, perfume, deodorant, or body powder the day of surgery. No jewelry (including any body piercings) or valuables the day of surgery, leave them at home. Please take a shower or bath the night before, or the morning of, surgery with an antibacterial soap. Wear comfortable, loose fitting clothing. Children are encouraged to wear pajamas. - Jewelry must be removed prior to entering the operating room. Rings and piercings that are not removed may be cut off. - The hospital will not accept responsibility for valuables. - Please leave all valuables, including medications, at home the day of surgery. If you are going home after surgery, a licensed bull driver must drive you home. - NO public transportation without another adult if you receive anesthesia. - We recommend that an adult stay with you for 24 hours following discharge. - We also recommend that you do not drive, make important decision, drink alcoholic beverages, or take any drugs that were not prescribed by your health care provider for at least 24 hours after your discharge time. For Pediatric surgeries, we recommend two adults accompany the child home. Follow any additional instructions given to you from your surgeon. If you or anyone in your household have experienced Covid symptoms in the past week, please notify your surgeon or the nurse liaison at the phone number below for possible testing. Telephone instructions given to _PATIENT__and asked if any additional questions and then verbalized understanding. Patient advised to call surgeon office or pre surgery nurse liaison [phone] if any additional questions.
--- NOTE | 2023-04-19 12:33 | PM.IMHP ---
H&P: HPI History of Present Illness Date/Time: 04/19/23 12:33 Chief Complaint: Pelvic pain/vaginal bleeding/dysmenorrhea/uterine fibroid Narrative: So 38-year-old female admitted for robotic hysterectomy and bilateral salpingectomy secondary to uterine fibroid pelvic pain and bleeding. She has undergone 5 previous deliveries. Her treatment has been refractory to medical therapy. Risks and benefits reviewed including but not exclusive of , aspiration Monocryl bleeding, transfusion, perforation to bowel, bladder, ureters, or other internal organs with need for open laparotomy. She received the ACOG handout entitled hysterectomy as well as the de Sai and out. She had all questions answered and asked to proceed PMFSH Past Medical History Medical History Anemia Migraines PCOS (polycystic ovarian syndrome) UTI (urinary tract infection) Surgical History Surgical History Hx of section Hx of tonsillectomy Myringotomy tube(s) status Family History Family History Mother Hypertension Diabetes mellitus Father Kidney stone History of nephrectomy Social History Social History Smoking status: Never smoker Alcohol intake: current Alcohol use details: 2 DRINKS PER MONTH Substance use: never Substance use type: does not use Living arrangements: with family Gender identity (if verbalized by the patient): Female Spiritual care concerns: No Agree to blood products: Yes Meds Home Medications and Allergies Home Medications Medication Instructions Recorded Confirmed Type hydroxychloroquine 200 mg tablet 200 mg PO DAILY 04/23/21 04/15/23 History rizatriptan 10 mg disintegrating 10 mg PO DAILY PRN migraine 04/23/21 04/15/23 History tablet levothyroxine 75 mcg tablet 75 mcg PO DAILY 04/15/23 04/15/23 History (Unithroid) Allergies Allergy/AdvReac Type Severity Reaction Status Date / Time No Known Allergies Allergy Verified 04/15/23 13:37 Exam Const: General: cooperative, comfortable and overweight Orientation/consciousness: oriented to person, oriented to place and oriented to time Resp: Effort & Inspection: normal respiratory effort Cardio: Rate: regular rate Rhythm: regular rhythm Heart sounds: S1 normal heart sound present and S2 normal heart sound present GI: Inspection: normal to inspection : External Female Exam: normal external appearance Speculum Exam - Vagina: normal appearance of the vagina Speculum Exam - Cervix: normal appearance of the cervix Bimanual exam- vagina & uterus: enlarged Bimanual Exam- Adnexa, other: normal adnexae Assessment and Plan Assessment and plan (1) Pelvic pain: Code(s): R10.2 - Pelvic and perineal pain Status: Acute (2) Excessive bleeding: Code(s): R58 - Hemorrhage, not elsewhere classified Status: Acute (3) Dysmenorrhea: Code(s): N94.6 - Dysmenorrhea, unspecified Status: Acute (4) Uterine fibroid: Code(s): D25.9 - Leiomyoma of uterus, unspecified Status: Acute Plan Robotic total vaginal hysterectomy and bilateral salpingectomy
[2023-04-23] VITALS (12 sets, daily range): BP systolic 117–138; BP diastolic 71–89; PULSE 59–87; RESP 10–16; TEMP 36.2–36.6; O2SAT 95–100
--- NOTE | 2023-04-23 06:14 | WPDHPUPDATE1 ---
History and Physical Update Update Date/Time: 04/23/23 06:14 History and Physical has been reviewed, including an updated exam of the patient. There are NO changes in the patient's condition. Risks, benefits, and alternatives have been discussed and questions answered. Patient agrees to proceed with procedure.
[2023-04-23] MEDS: ACETAMINOPHEN 500 MG TABLET 1000 MG PO (10:29)
[2023-04-23] MEDS: KETOROLAC 15 MG/ML VIAL (*BKC) IV PUSH (10:29)
[2023-04-23] MEDS: LACTATED RINGERS 1,000 ML 30 ML IV CONT ×2 (10:30→13:29)
[2023-04-23] MEDS: ceFAZolin 3 GM/D5W 100 ML 100 ML IVPB (11:08)
--- NOTE | 2023-04-23 12:18 | P.OP_ITS ---
Procedure Note - Detailed Date of Procedure 04/23/23 Pre-op Diagnosis Pain, Heav Bleed, Fibroids, Dysmenorrhea Post-op Diagnosis Same Procedure Performed Robotic total vaginal hysterectomy and bilateral salpingectomy Surgeon Michael Pereira MD Anesthesia General Indications 38-year-old female with enlarged uterus pelvic pain and bleeding Findings Enlarged uterus. Normal-appearing tubes and ovaries. Description of Procedure Patient was prepped draped in the normal sterile fashion placed in dorsal lithotomy position. Under excellent general trach anesthesia weighted speculum placed in posterior fornix vagina. Anterior lip of the cervix grasped with single-tooth tenaculum. Uterus sounded to 11cm. Serial dilatation fragmented dilators performed followed by passes the 10. GUERO and the 3. Cold cup. A 16 German catheter was placed in the bladder. The remainder the instruments removed and the gloves were changed. A supraumbilical incision made the Veress needle passed in the abdomen. Abdomen filled with CO2 gas to 15 15mmHg. Downside visualized no injury seen. Patient placed in Trendelenburg right left lateral quadrant incisions made. The 8mm trocar advanced direct visualization assuring no injury. A right upper quadrant incision made the trocar advanced under visualization assuring injury. The robot was docked. Attention was turned to the console. Left round ligament was grasped, burned cut. Anterior bladder flap was formed by sharply dissecting peritoneum reflecting the bladder caudally away from the cervix uterus the opposite round ligament which was clamped, burned, cut. Next the fallopian tube was sharply dissected away from the ovarian complex and left at the uterine origin. This was repeated with the right tube on contralateral side. Conserving the left ovary, the utero-ovarian ligament was clamped, burned, cut and brought to the level of previously cut round ligament. Conserving the right ovary ligament was clamped, burned, brought to the previously cut right round ligament. The cardinal broad ligaments on the left were serially skeletonized clamping burning cutting until the uterine vessels could be seen. There were individually clamped, burned, cut. In like fashion the cardinal broad ligaments on the right were skeletonized clamping burning cutting and hugging the cervix uterus until the uterine vessels could be seen on the right. These were then individually clamped, burned,. Blanching the uterus was noted a colpotomy incision made. Uterus cervix and tubes removed through the vagina. The vagina then closed with continuous running 0V lock from lateral edge to lateral edge back to the midline. Irrigation undertaken to clear and Sherwood term placed raw surface area. Blood loss was estimated 25cc gas removed from the abdomen after undocking robot. The trocars removed and the incisions closed with 4 Monocryl and glue. Patient was awakened went recovery in satisfactory condition. All sponge, needle instrument counts were correct. There no immediate complications noted Estimated Blood Loss 25 Drains No Packing No Pathology Yes Complications No immediate complications Condition Stable Disposition PACU
--- NOTE | 2023-04-23 12:22 | PM.DS ---
DS: Admitting Diagnosis Discharge Date 04/24/2023 Admitting Diagnosis Excessive bleeding/enlarged uterus/pelvic pain DS: Discharge Diagnosis Discharge Diagnosis (1) Uterine fibroid: Code(s): D25.9 - Leiomyoma of uterus, unspecified Status: Acute (2) Dysmenorrhea: Code(s): N94.6 - Dysmenorrhea, unspecified Status: Acute (3) Excessive bleeding: Code(s): R58 - Hemorrhage, not elsewhere classified Status: Acute (4) Pelvic pain: Code(s): R10.2 - Pelvic and perineal pain Status: Acute DS: Summary Hospital Course Reason for hospitalization: Patient underwent total vaginal hysterectomy and bilateral salpingectomy robotically on 04 23 23. Hospital Course: Patient's hospital course unremarkable. She remained afebrile. She was up, voiding without difficulty, eating regular diet, ambulating, and general without complaints. Time Spent with Patient Time attestation: Total time spent providing and/or coordinating discharge services: Exam Const: General: cooperative, healthy appearing and comfortable Orientation/consciousness: oriented to person, oriented to place and oriented to time HENMT: Head: normal to inspection Resp: Effort & Inspection: normal respiratory effort Cardio: Rate: regular rate Rhythm: regular rhythm Heart sounds: S1 normal heart sound present and S2 normal heart sound present GI: Inspection: normal to inspection, incision (Wounds are clean dry and intact) and Pannus present DS: Data Data Completed and Pending Pending studies at discharge: Pending at discharge 04/23/23 12:02 Surgical [PTH] Routine Discharge Plan Discharge Patient Disposition: Home, Self-Care Discharge Instructions: Call or return if temperature above 100.4? F, increased abdominal pain, increased vaginal bleeding or any new problems. Patient Instructions: Hysterectomy (DC) Stand Alone Forms: General Discharge Instructions Follow-up/Referrals: Michael Stanton MD [Physician] - 2 Weeks Discharge Medications: New hydrocodone-acetaminophen 5-325 mg tablet 1 tablet PO Q4H PRN (Reason: pain) Qty: 20 0RF ondansetron HCl 4 mg tablet 4 mg PO TID PRN (Reason: nausea and vomiting) Qty: 10 0RF oxycodone-acetaminophen [Percocet] 5-325 mg tablet 1 - 2 tablet PO Q6H PRN (Reason: pain) Qty: 30 0RF Continued rizatriptan 10 mg tablet,disintegrating 10 mg PO DAILY PRN (Reason: migraine) hydroxychloroquine 200 mg tablet 200 mg PO DAILY levothyroxine [Unithroid] 75 mcg tablet 75 mcg PO DAILY
[2023-04-23] MEDS: fentaNYL CITRATE INJ (*CRX) 100 MCG/2 ML VIAL 25 MCG IV PUSH ×6 (12:50→13:20)
--- NOTE | 2023-04-23 13:56 | PC.NURSE ---
This patient, Tariq Casey, was received from PACU on 04/23/23 at 1413. Patient/family oriented to unit policies and routines.
[2023-04-23] MEDS: DEXTROSE 5%/LACTATED RINGERS 1,000 ML 125 ML IV CONT (14:26)
[2023-04-23] MEDS: KETOROLAC 30 MG/ML VIAL (*BKC) IV PUSH (14:34)
[2023-04-23] MEDS: SIMETHICONE 80 MG TAB.CHEW PO ×2 (16:30→19:43)
[2023-04-23] MEDS: HYDROcodone/acetaminophen (*CRX) 5-325 MG TABLET 1 TAB PO ×2 (16:40→19:43)
[2023-04-23] MEDS: ONDANSETRON INJ 4 MG/2 ML VIAL IV PUSH (16:40)
[2023-04-23] MEDS: DOCUSATE SODIUM 100 MG CAPSULE PO (19:43)
[2023-04-24] MEDS: IBUPROFEN 600 MG TABLET PO ×2 (00:44→07:17)
[2023-04-24] MEDS: SIMETHICONE 80 MG TAB.CHEW PO ×3 (00:44→07:17)
[2023-04-24] MEDS: ACETAMINOPHEN 325 MG TABLET 650 MG PO (04:26)
[2023-04-24 04:30] VITALS: BP 106/78; PULSE 59; RESP 16; TEMP 36.6; O2SAT 99
[2023-04-24 05:26] LABS: Basophils Percent Auto 0.1 % (0.2-1.2); Hematocrit 38.8 % (37.0-47.0); Hemoglobin 12.7 g/dL (12.0-15.0); Immature Granulocyte Absolute 0.05 K/mm3 (0.00-0.031); Immature Granulocyte Percent A 0.4 % (0-0.5); Lymphocytes Absolute Auto 1.59 K/mm3 (0.9-3.2); Lymphocytes Percent Auto 12.5 % (18.3-44.2); Mean Corpuscular HGB Conc 32.7 g/dl (32-36); Mean Corpuscular Volume 88.6 fl (80-100); Mean Platelet Volume 10.7 fl (7.4-10.4); Monocytes Absolute Auto 0.8 K/mm3 (0.1-0.6); Monocytes Percent Auto 6.1 % (2.6-8.5); Neutrophils Absolute Auto 10.3 K/mm3 (1.3-6.7); Neutrophils Percent Auto 80.9 % (45.5-73.1); Platelet Count Result 261 k/mm3 (150-375); Red Blood Count 4.38 M/mm3 (4.2-5.4); Red Cell Distribution Width 13.3 % (11.5-14.5); White Blood Count 12.7 K/mm3 (4.5-10.0)
[2023-04-24 08:19] VITALS: BP 105/70; PULSE 62; RESP 12; TEMP 36.2
[2023-04-24] MEDS: ENOXAPARIN 40 MG/0.4 ML SYRINGE SUB-Q (08:29)
[2023-04-24] MEDS: DOCUSATE SODIUM 100 MG CAPSULE PO (08:29)
--- NOTE | 2023-04-24 08:34 | PM.GYNPNOP ---
CHIEF ELECTRICIAN - A/P Assessment and plan (1) Uterine fibroid: Code(s): D25.9 - Leiomyoma of uterus, unspecified Status: Acute Assessment and Plan: A: POD#1, doing well. P: Home to f/u 2 weeks. (2) Dysmenorrhea: Code(s): N94.6 - Dysmenorrhea, unspecified Status: Acute (3) Excessive bleeding: Code(s): R58 - Hemorrhage, not elsewhere classified Status: Acute (4) Pelvic pain: Code(s): R10.2 - Pelvic and perineal pain Status: Acute Postoperative Procedures: Procedures Operation Date: 04/23/23 11:30 Actual Procedure Side Surgeon p Robotic Assisted Total Vaginal Hysterectomy with Bilateral Salpingectomy Bilateral Michael Pereira MD Postoperative day: 1 Time Spent With Patient Time with patient: less than 15 minutes CHIEF ELECTRICIAN- PN:Subj Post-Op Subjective Date/time seen: 04/24/23 08:34 CHIEF ELECTRICIAN - PN: Obj Data Vital Signs Vital Signs: Vital Signs - 24 hr 04/23/23 10:05 04/23/23 12:32 04/23/23 12:47 Temperature 36.2 C L 36.3 C L Pulse Rate 65 85 66 Respiratory Rate 16 15 16 Blood Pressure 127/74 135/79 138/79 Pulse Oximetry 97 95 99 Oxygen Delivery Room Air Simple Face Mask Simple Face Mask Oxygen Flow Rate 8 8 04/23/23 13:02 04/23/23 13:17 04/23/23 13:34 Temperature Pulse Rate 72 60 71 Respiratory Rate 12 10 L 12 Blood Pressure 132/89 131/80 117/71 Pulse Oximetry 98 100 100 Oxygen Delivery Nasal Cannula Nasal Cannula Nasal Cannula Oxygen Flow Rate 2 2 2 04/23/23 14:05 04/23/23 14:20 04/23/23 15:25 Temperature 36.6 C Pulse Rate 66 Respiratory Rate 16 Blood Pressure 129/79 Pulse Oximetry 96 96 97 Oxygen Delivery Nasal Cannula Nasal Cannula Oxygen Flow Rate 2 1 04/23/23 16:00 04/23/23 19:45 04/23/23 19:45 Temperature 36.6 C Pulse Rate 87 87 Respiratory Rate 16 16 Blood Pressure 121/83 Pulse Oximetry 98 97 97 Oxygen Delivery Room Air Room Air Oxygen Flow Rate 04/24/23 04:30 04/24/23 08:19 Temperature 36.6 C 36.2 C L Pulse Rate 59 L 62 Respiratory Rate 16 12 Blood Pressure 106/78 105/70 Pulse Oximetry 99 Oxygen Delivery Oxygen Flow Rate Intake/Output Intake/Output: Intake & Output 04/21/23 04/22/23 04/23/23 04/24/23 23:59 23:59 23:59 23:59 Intake Total 800 Output Total 1200 Balance -400 Meds/Results Medications: Active Medications Generic Name Dose Route Start Last Admin Trade Name Freq PRN Reason Stop Dose Admin Acetaminophen 650 mg 04/24/23 04:24 04/24/23 04:26 Acetaminophen 325 Mg Tablet PO 650 mg Q6H PRN Administration Mild Pain (1-3) or Fever Hydrocodone Bitart/Acetaminophen 1 tab 04/23/23 13:54 04/23/23 19:43 Hydrocodone/Acetaminophen (*Crx) 5-325 Mg Tablet PO 1 tab Q3H PRN Administration Pain Rated 5 or Less Hydrocodone Bitart/Acetaminophen 1 tab 04/23/23 13:54 Hydrocodone/Acetaminophen (*Crx) 10-325 Mg Tablet PO Q3H PRN Pain Rated 6 or Greater Docusate Sodium 100 mg 04/23/23 17:00 04/24/23 08:29 Docusate Sodium 100 Mg Capsule PO 100 mg BID MANNY Administration Enoxaparin Sodium 40 mg 04/24/23 09:00 04/24/23 08:29 Enoxaparin 40 Mg/0.4 Ml Syringe SUB-Q 40 mg DAILY MANNY Administration Dextrose/Lactated Ringer's 1,000 mls @ 125 mls/hr 04/23/23 13:54 04/23/23 14:26 Dextrose 5%/Lactated Ringers IV CONT 125 mls/hr .Q8H MANNY Administration Ibuprofen 600 mg 04/23/23 13:54 04/24/23 07:17 Ibuprofen 600 Mg Tablet PO 600 mg Q6H PRN Administration Cramping Ketorolac Tromethamine 30 mg 04/23/23 13:54 04/23/23 14:34 Ketorolac 30 Mg/Ml Vial (*Bkc) IV PUSH 04/28/23 13:53 30 mg Q6H PRN Administration Pain Rated 4-6 Naloxone HCl 0.1 mg 04/23/23 13:54 Naloxone Hcl 0.4 Mg/Ml Vial IV PUSH Q2M PRN Respiratory rate less than 10 Ondansetron HCl 4 mg 04/23/23 13:54 04/23/23 16:40 Ondansetron Inj 4 Mg/2 Ml Vial IV PUSH 4 mg Q6H PRN Administrati
[2023-04-24] MEDS: oxyCODONE/ACETAMINOPHEN (*CRX) 5-325 MG TABLET 1 TABLET PO (09:03)
--- NOTE | 2023-04-24 10:21 | WPDANESPN ---
Anes - Prog Note Post-Op Date/Time: 04/24/23 10:21 Cardiovascular status: normal Respiratory status: normal Airway patency: baseline Mental status: baseline Post-Op hydration status: normal Vital Signs: Last Vital Signs Temp 36.2 C L 04/24/23 08:19 Pulse 62 04/24/23 08:19 Resp 12 04/24/23 08:19 BP 105/70 04/24/23 08:19 Pulse Ox 99 04/24/23 04:30 O2 Del Method Room Air 04/24/23 08:35 O2 Flow Rate 1 04/23/23 15:25 Pain Score (VAS): 10/02 I/O: Intake & Output 04/23/23 04/24/23 04/24/23 23:59 07:59 15:59 Intake Total 400 Output Total 1000 Balance -600 Laboratory Tests 04/24/23 04:16 04/24/23 04:16 WBC 12.7 H RBC 4.38 Hgb 12.7 Hct 38.8 MCV 88.6 MCH 29.0 MCHC 32.7 RDW 13.3 Plt Count 261 MPV 10.7 H Immature Gran % (Auto) 0.4 Neut % (Auto) 80.9 H Lymph % (Auto) 12.5 L Jefferson % (Auto) 6.1 Eos % (Auto) 0.0 Baso % (Auto) 0.1 L Lymph # (Auto) 1.59 Jefferson # (Auto) 0.8 H Eos # (Auto) 0.0 Baso # (Auto) 0.0 Abs Immat Gran (auto) 0.05 H Absolute Neuts (auto) 10.3 H Absolute Nucleated RBC 0.0 Nucleated RBC % 0.0 Post-procedural complaints: none Patient Feedback: Patient satisfied with anesthetic care.
== END 2023-04-24 10:40 | disposition home or self-care (01) ==
LOC: ANHSURGERY 09:29 → ANHOB2 14:13
PROVIDERS: PCP Family Medicine; Visit Provider Obstetrics & Gynecology
PROC: (CPT 58552; principal; 2023-04-23 11:30)
DX: N72 Inflammatory disease of cervix uteri (principal); N88.8 Other specified noninflammatory disorders of cervix uteri; N83.8 Other noninflammatory disorders of ovary, fallopian tube and broad ligament; R10.2 Pelvic and perineal pain; N94.6 Dysmenorrhea, unspecified
CPT/HCPCS: 58552; S2900; 36415; 85025; 86850; 86900; 86901; 88307; 99199; A9270; J0330; J0690; J1100; J1170; J1650; J1885; J2250; J2405; J2704; J3010; J7030; J7120; J7121

== ENCOUNTER 2024-01-23 12:06 | Emergency (ER) | payer OTHER, SELFPAY ==
--- NOTE | ~2024-01-23 | XR_ITS ---
EXAMINATION: XR foot RT min 3V DATE: 01/23/2024 12:43 INDICATION: Right foot pain after jumping during exercise TECHNIQUE: Dorsoplantar, two oblique and lateral views of the right foot were obtained. COMPARISON: CT dated 10/23/2019 FINDINGS: Previously seen distal right tibial fibular fractures have healed in near-anatomic alignment. The lat eral malleolar fractures fixed with a lateral plate and screws. The medial malleolar fractures fixed with a long cancellous screw and there is plate and screw fixation along both the medial and posterio r margins of the distal tibia for fixation of the posterior malleolar fracture. No evident instrument ation failure or surrounding lucency to suggest loosening or infection. No acute fracture. 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 Remaining joint spaces are normal. Soft tissues are unremarkable. IMPRESSION: 1. Expected appearance of a healed internally fixed trimalleolar fracture of the distal right tibia a nd fibula. No acute osseous abnormality. Reviewed, dictated and finalized at location A. IMPRESSION: 1. Expected appearance of a healed internally fixed trimalleolar fracture of th e distal right tibia and fibula. No acute osseous abnormality.
[2024-01-23 12:20] VITALS: BP 119/70; PULSE 62; RESP 16; TEMP 35.9; O2SAT 100
--- NOTE | 2024-01-23 13:05 | ED.LOWEXIN ---
HPI - Extremity Injury (Lower) General Chief Complaint: Extremity Injury, Lower Stated Complaint: Right Foot Pain Time Seen by Provider: 01/23/24 12:09 Source: patient Mode of arrival: ambulatory Limitations: no limitations History of Present Illness HPI Narrative: 38-year-old female presents to [facility] with complaints of pain to lateral aspect of her right foot for the past 2 days. Patient reports that pain started after she was exercising but does not remember an exact injury. Patient has been taking [id number] ibuprofen with minimal relief. Patient reports the pain is worse with ambulation. MD complaint: foot injury Onset (ago): day(s) (2) Injury: Right: foot Exacerbating factors: weight bearing Treatments prior to arrival: cold therapy and NSAIDS Related Data Home Medications Medication Instructions Recorded Confirmed hydroxychloroquine 200 mg tablet 200 mg PO DAILY 04/23/21 04/23/23 rizatriptan 10 mg disintegrating 10 mg PO DAILY PRN migraine 04/23/21 04/15/23 tablet levothyroxine 75 mcg tablet 75 mcg PO DAILY 04/15/23 04/23/23 (Unithroid) semaglutide 1 mg/dose (4 mg/3 mL) 1 mg subcut WEEKLY 01/23/24 01/23/24 subcutaneous pen injector (Ozempic) Allergies Allergy/AdvReac Type Severity Reaction Status Date / Time No Known Allergies Allergy Verified 04/23/23 09:55 Review of Systems Constitutional: Constitutional: Denies chills, Denies fatigue, Denies fever(s) and Denies weakness ENT: Denies dizziness, Denies epistaxis and Denies nasal congestion Respiratory: Respiratory: Denies cough and Denies wheezing Gastrointestinal: Gastrointestinal: Denies diarrhea, Denies nausea and Denies vomiting Musculoskeletal: Musculoskeletal: Reports arthralgias, Denies joint swelling and Denies muscle cramps Comments: Pain to lateral aspect of right foot Neurologic: Denies vertigo, Denies dizziness, Denies syncope and Denies headache(s) [facility] Past Medical History Medical History Anemia Migraines PCOS (polycystic ovarian syndrome) UTI (urinary tract infection) Surgical History Surgical History Hx of section Hx of tonsillectomy Myringotomy tube(s) status Family History Family History Mother Hypertension Diabetes mellitus Father Kidney stone History of nephrectomy Social History Social History Smoking status: Never smoker Alcohol intake: current Alcohol use details: 2 DRINKS PER MONTH Substance use: never Substance use type: does not use Living arrangements: with family Gender identity (if verbalized by the patient): Female Spiritual care concerns: No Agree to blood products: Yes Comments At time of signature, I agree with nursing past medical, surgical, social and family history. There is no relevant family history pertinent to the presenting complaint. Exam Const: General: healthy appearing and no acute distress Nutritional Appearance: well nourished Orientation/consciousness: patient oriented x3 Limitations: no limitations HENMT: Head: normal to inspection Eyes: Conjunctivae: conjunctivae normal Neck: Neck: normal visual inspection Resp: Effort & Inspection: normal respiratory effort and not labored Auscultation: clear to auscultation bilaterally, no crackles, no rales, no rhonchi and no wheezes Cardio: Rate: regular rate Rhythm: regular rhythm Heart sounds: no murmurs Skin: General skin exam: normal color Rashes: no rashes Wounds: no wounds Neuro: General: patient oriented x3 Speech: normal speech Other: Patient limping with ambulation Extrem: General: normal to inspection, no clubbing, cyanosis or edema and no pedal edema Other: There is no erythema, swelling or bruising noted to right foot upon examin
== END 2024-01-23 13:22 | disposition home or self-care (01) ==
PROVIDERS: Emergency Provider Nurse Practitioner Family; PCP Family Medicine
DX: E28.2 Polycystic ovarian syndrome (principal)
CPT/HCPCS: 73630; 99213; G0463

== ENCOUNTER 2024-02-14 12:43 | Outpatient (CLI) | payer OTHER, SELFPAY ==
--- NOTE | ~2024-02-14 | MR_ITS ---
EXAMINATION: MR brain IAC wo/w con DATE: 02/14/2024 13:30 INDICATION: Pulsatile tinnitus TECHNIQUE: Magnetic resonance imaging (MRI) of the brain and brainstem was performed without and with 20 mL Mult ihance intravenous contrast. Sequences included sagittal and axial T1-weighted SE, axial diffusion-we ighted FS SE, axial 3D SWAN, axial T2-weighted FLAIR, 3D axial T1-weighted SHAW, coronal FIESTA, cor onal T1-weighted IAC, axial T2-weighted PROPELLER and postcontrast axial and coronal T1-weighted FSE, coronal T1-weighted IAC and 3-D axial T1-weighted SHAW. Apparent diffusion coefficient (ADC) maps w ere created. COMPARISON: None. FINDINGS: There are no areas of restricted diffusion to suggest acute infarction. No intracranial hemorrhage or abnormal intracranial mass lesion. Small right-sided choroid fissure cyst on the inferior margin of the right basal ganglia. There are no intraparenchymal signal abnormalities seen on the other pulse s equences. The ventricles are symmetric and normal in size. Normal seventh/eighth cranial nerve comple xes. No cerebellopontine angles masses. There are bilateral mastoid effusions small on the left and larger on the right. No definitive middle ear fluid. There are no abnormal extra-axial fluid collecti ons. Flow voids are seen in the cerebral arteries on the T2-weighted sequences consistent with their expected patency. There are no areas of abnormal enhancement on the post contrast images. There is as ymmetry wrist the of the bilateral globes with slight flattening of the globes at the level of the op tic discs suggestive of papilledema which is more prominent on the right. There also appears be incre ased fluid in the optic nerve sheaths which measure 5.3 mm on the right and 6.3 mm on the left sugges ting increased intracranial pressures. Although there is no empty sella, the pituitary does appear sl ightly flattened with a concave cephalad margin also suspicious for increased intracranial pressures. IMPRESSION: 1. Flattening of the globes at the optic disc swelling suspicious for papilledema which along with in creased fluid in the bilateral optic nerve sheaths and concave cephalad margin of the mildly compress ed appearing pituitary gland raises concern for increased intracranial pressures. Intracranial hypert ension can be a cause of pulsatile tinnitus. Recommend correlation with ophthalmic exam. 2. Fluid in the bilateral mastoid air cells, right greater than left. 2. Normal brain. Reviewed, dictated and finalized at location A. IMPRESSION: 1. Flattening of the globes at the optic disc swelling suspicious for papillede ma which along with increased fluid in the bilateral optic nerve sheaths and co ncave cephalad margin of the mildly compressed appearing pituitary gland raises concern for increased intracranial pressures. Intracranial hypertension can be a cause of pulsatile tinnitus. Recommend correlation with ophthalmic exam. 2. Fluid in the bilateral mastoid air cells, right greater than left. 2. Normal brain.
== END 2024-02-14 12:44 ==
LOC: MICIMG 12:43
PROVIDERS: PCP Physician Assistant; Visit Provider Physician Assistant
DX: H93.A1 Pulsatile tinnitus, right ear (principal)
CPT/HCPCS: 70553; A9577

== ENCOUNTER 2024-04-03 13:30 | Outpatient (CLI) | payer OTHER, SELFPAY ==
--- NOTE | ~2024-04-03 | XR_ITS ---
3 VIEWS LUMBAR SPINE Ordering provider: Tiffany Kay, PACornelia History: . Low back pain . Comparison: None. FINDINGS: VERTEBRAL BODIES: No visible fracture or subluxation. DISK SPACES: Normal. SOFT TISSUES: Normal. IMPRESSION: No acute osseous abnormality lumbar spine. Reviewed, dictated and finalized at location A.
== END 2024-04-03 13:31 | disposition home or self-care (01) ==
LOC: MICIMG 13:32
PROVIDERS: PCP Physician Assistant; Visit Provider Physician Assistant
DX: M54.50 Low back pain, unspecified (principal)
CPT/HCPCS: 72100

== ENCOUNTER 2024-08-09 09:49 | Outpatient (CLI) | payer OTHER, SELFPAY ==
--- NOTE | ~2024-08-09 | US_ITS ---
EXAMINATION: US thyroid DATE: 08/09/2024 10:13 INDICATION: Goiter TECHNIQUE: Multiple ultrasound images of the thyroid were obtained. COMPARISON: 09/13/2020 FINDINGS: The right thyroid lobe measures 4.9 x 1.2 x 1.4 cm. The left thyroid lobe measures 4.1 x 1.3 x 1.1 c m. No interval change in a 7 mm Ti solid wider than tall hypoechoic nodule with smooth margins and w ithout echogenic foci in the inferior right thyroid lobe (TI-RADS 4, moderately suspicious , FNA if > =1.5 cm, annual followup is >=1 cm). There is a second 3 mm TI-RADS 4 nodule with similar imaging fea tures also the inferior right thyroid lobe which was not identified on the provided images from the p rior study. There is normal echotexture, echogenicity and vascular flow throughout the thyroid gland. IMPRESSION: 1. A couple subcentimeter TI-RADS 4 right thyroid nodules which remain below size criteria for either biopsy or follow-up. Reviewed, dictated and finalized at location B. ACT FINGER ASSEMBLER IMPRESSION: 1. A couple subcentimeter TI-RADS 4 right thyroid nodules which remain below si ze criteria for either biopsy or follow-up.
== END 2024-08-09 09:50 | disposition home or self-care (01) ==
LOC: MICIMG 09:52
PROVIDERS: PCP Physician Assistant; Visit Provider Physician Assistant
DX: E04.2 Nontoxic multinodular goiter (principal)
CPT/HCPCS: 76536

== ENCOUNTER 2024-11-16 13:16 | Outpatient (CLI) | payer OTHER, SELFPAY ==
--- OUTSIDE RECORDS SUMMARY | 2024-11-16 14:24 | XMS_ITS | Referral Summary ---
Author Organization [facility] Healthcare Address [address] [place] [id number] Care Team Providers Care Seafood Service Team Member Name Role Phone Tiffany Kay Primary Care Pr ovider Encounters Date Type Department Care Team Description 10/03/2024 9:30 AM CDT Office Visit [facility] Ophthalmology [address] [place] [phone] Paul Pickering MD PhD IIH (idiopathic intracranial hypertension) (Primary Dx); Papilledema associated with increased intracranial pressure 10/03/2024 9:20 AM CDT Imaging Exam [facility] Ophthalmology [address] [place] [phone] IIH (idiopathic intracranial hypertension) (Primary Dx); Papilledema of both eyes; Papilledema associated with increased intracranial pressure 09/26/2024 Orders Only [facility] Ophthalmology [address] [place] [phone] Paul Pickering MD PhD Papilledema of both eyes (Primary Dx) from Last 3 Months Allergies Active Allergy Reactions Criticality Noted Date Comments Gluten Stomach upset High 03/30/2024 Medications rizatriptan HELMET COVERER (MAXALT-HELMET COVERER) 10 mg disintegrating tabletIndications: Migraine Take 1 tablet (10 mg total) by mouth once as needed [address] (PROTONIX) 40 mg EC tablet TAKE 1 TABLET BY MOUTH IN THE MORNING BEFORE BREAKFAST . 0 Active clindamycin (Cleocin T) 1 % lotionIndications: Folliculitis Apply thin layer to affected area at groin every day and apply to inflamed bumps BID as needed. 60 mL 11 1 Active artificial tears,hypromellose , 0.3 % dropsIndications:D ry Eye Administer 1 drop into both eyes as needed (dry / irritated eyes) Active levothyroxine (SYNTHROID) 88 mcg tablet TAKE 1 TABLET BY MOUTH EVERY DAY FOR 90 DAYS 4 Active acetaZOLAMIDE ER (DIAMOX SEQUAL) 500 mg capsuleIndications :IIH (idiopathic intracranial hypertension),Dion lledema associated with increased intracranial pressure TAKE 2 CAPSULES (1,000 MG TOTAL) BY MOUTH TWICE A DAY 360 capsule 5 Active hydroxychloroquine (PLAQUENIL) 200 mg tablet TAKE 2 TABLETS BY MOUTH EVERY DAY 180 tablet 1 5 Active sertraline (ZOLOFT) 25 mg tablet Take 1 tablet (25 mg total) by mouth every evening 5 Active Active Problems Problem Noted Date Diagnosed Date Connective tissue disease 04/25/2024 Overview (04/25/2024): Suspected SLE -- on plaquenil PCOS (polycystic ovarian syndrome) 04/25/2024 History of uterine fibroid 04/25/2024 IIH (idiopathic intracranial hypertension) 04/25 Papilledema of both eyes 03/30/2024 Assessment & Plan (03/30/2024 2:38 PM CDT): There is mild elevation of nasal rim with blur of margins left eye (OS) > right eye (OD), without obscuration of BV's in either eye. Reassuringly, there is excellent BCVA and full color vision. Avendano visual field (HVF) is full both eyes (OU), with trace enlargement of blind spot left eye (OS). The recent MRI Brain w and without contrast with non-specific findings correlated with IIH. Pt did not have MRI Orbit or MRV. Educated on all exam findings. Since optic nerve has been noted as stable in the past, and there has been recent weight loss, it is difficult to determine if this represents active papilledema. Additionally, history of meningitis in the past may impact the baseline appearance of the optic disc at this point. Pt does fit demographic for IIH (slightly older than typical), but advised would need completed work-up for diagnosis. Will order MRV Head w and without contrast and include MRI Orbit w and without contrast. Advised pt to reach out to PCP for migraine/headache management. Educated on typical treatments offered if diagnosed with IIH in the future (Diamox / Topamax/ weight loss). Advised pt to go to ED STAT w any worsening of headaches, double vision, or new neurologic symptoms. Will schedule interval f/u with neuro-oph following MRI/MRV in 8wk otherwise Long-term use of Plaquenil 11/08/2020 Overview (03/30/2024): 400mg QDAY Assessment & Plan (03/30/2024 2:39 PM CDT): No evidence of toxicity on DFE or OCT. Follows routinely elsewhere for screening, needs Avendano visual field (HVF) 10-2 yearly Hypothyroidism 02/19/2020 Adjustment disorder 11/15/2019 Eczema 11/15/2019 Excess or deficiency of vitamin D 11/15/2019 Verruca vulgaris 11/15/2019 Obstructive sleep apnea syndrome 11/15/2019 Resolved Problems Problem Noted Date Diagnosed Date Resolved Date Obesity 11/15/2019 11/08/2020 Viral meningitis 11/15/2019 11/08/2020 Overweight 11/15/2019 11/04/2021 Pre-eclampsia 11/15/2019 11/08/2020 Trimalleolar fracture of right ankle 11/15/2019 11/04/2021 Antinuclear factor positive 09/26/2014 11/08/2020 Fatigue 09/26/2014 11/08/2020 Leg pain 09/26/2014 11/08/2020 Low back pain 09/26/2014 11/08/2020 Immunizations Immunization Administration Dates Next Due Pfizer SARS-CoV-2 Monovalent Vaccination (12+ Yrs) PURPLE 10/20/2020 Social History Tobacco Use Types Packs/Day Years Used Date Smoking Tobacco: Never Smokeless Tobacco: Never Alcohol Use Standard Drinks/Week Comments Yes 0 (1 standard drink = 0.6 oz pur e alcohol) 2 drinks per month AUDIT-C Answer Date Recorded Q1: How often do you have a drink containing alc ohol? Monthly or less 05/30/2024 Average Number of Drinks Not on file 024 Frequency of Binge Drinking Not on file 11/2023 Comments Unknown Sex and Gender Information Value Date Recorded Sex Assigned at Not on file Legal Sex Female 10:43 AM CDT Gender Identity Female 07/10/2021 12:30 PM CHEMICAL ENGINEERING TEACHER Sexual Orientation Straight 07/10/2021 12 :30 PM CHEMICAL ENGINEERING TEACHER Last Filed Vital Signs Vital Sign Reading Time Taken Comments Blood Pressure 114/76 05/30/2024 9:42 AM CHEMICAL ENGINEERING TEACHER Pulse 69 05/30/2024 9:42 AM CHEMICAL ENGINEERING TEACHER Temperature 36.5 C (97.7 F) 05/30/2024 9:42 AM CHEMICAL ENGINEERING TEACHER Respiratory Rate 15 10/27/2019 3:00 PM CDT Oxygen Saturation 100% 05/30/2024 9:42 AM CHEMICAL ENGINEERING TEACHER Inhaled Oxygen Concentration - - Weight 110.2 kg (243 lb) 07/04/2024 10:21 AM CHEMICAL ENGINEERING TEACHER Height 165.1 cm (5' 5 ) 07/04/2024 10:21 AM CHEMICAL ENGINEERING TEACHER Body Mass Index 40.44 07/04/2024 10:21 AM CHEMICAL ENGINEERING TEACHER Plan of Treatment Not on file Medical Devices Implanted Type Area Clinical Application Specialist Device Identifier Shelf Expiration Date Model / Serial / Lot [employer]O rtho [id number] Evos Mini 34mm 5 Hole Luz Elena Low Profile Variable Angle Small Bone - [id number] Implanted:Qty: 1 on 10/27/2019 by Myriam Murphy MD at [facility] Plate Right: Ankle [employer]Or tho [id number] / / [employer]O rtho [id number] Evos Mini 52mm 5 Hole Luz Elena Low Profile Variable Angle Small Bone - [id number] Implanted:Qty: 1 on 10/27/2019 by Myriam Murphy MD at [facility] Plate Right: Ankle [employer]Or tho [id number] / / [employer] rtho [id number] Evos Mini 140mm 20 Hole Strenght Low Profile Variable Angle Small - [id number] Implanted:Qty: 1 on 10/27/2019 by Myriam Murphy MD at [facility] Plate Right: Ankle [employer]Or tho [id number] / / [employer]/O rtho [id number] 2.7mm 4.3mm 24mm Self Tap Lock T8 2mm Screw Bone Evos - [id number] Implanted:Qty: 1 on 10/27/2019 by yMriam Murphy MD at [facility] Screw Right: Ankle [employer]Or tho [id number] / / [employer]/O rtho [id number] Evos 2.4mm 14mm Self Tap Self Retaining Drive Small Bone Long - [id number] Implanted:Qty: 1 on 10/27/2019 by Myriam Murphy MD at [facility] Screw Right: Ankle [employer]Or tho [id number] / / [employer]/O rtho [id number] Evos 2.4mm 16mm Self Tap Self Retaining Drive Small Bone Long - [id number] Implanted:Qty: 1 on 10/27/2019 by Myriam Murphy MD at [facility] Screw Right: Ankle [employer]Or tho [id number] / / [employer] rtho [id number] Evos 3.5mm 80mm Self Tap Cortex Screw Bone Sterile - [id number] Implanted:Qty: 1 on 10/27/2019 by Myriam Murphy MD at [facility] Screw Right: Ankle [employer]Or tho [id number] / / [employer]/O rtho [id number] 2.7mm 4.5mm 36mm Self Tap Cortex T8 2mm Screw Bone Evos - [id number] Implanted:Qty: 1 on 10/27/2019 by Myriam Murphy MD at [facility] Screw Right: Ankle [employer]Or tho [id number] / / [employer]/O rtho [id number] 2.7mm 4.5mm 28mm Self Tap Cortex T8 2mm Screw Bone Evos - [id number] Implanted:Qty: 2 on 10/27/2019 by Myriam Murphy MD at [facility] Screw Right: Ankle [employer]Or tho [id number] / / [employer] rtho [id number] Evos Mini 2.7mm 4.5mm 40mm Self Tap Offset Press Operator Apprentice Long Bone Small Bone - [id number] Implanted:Qty: 2 on 10/27/2019 by Myriam Murphy MD at [facility] Screw Right: Ankle [employer]Or tho [id number] / / [employer] rtho [id number] Evos 2.7mm 4.5mm 34mm Self Tap Cortex T8 Screw Bone Nonsterile - [id number] Implanted:Qty: 1 on 10/27/2019 by Myriam Murphy MD at [facility] Screw Right: Ankle [employer]/Or tho [id number] / / [employer]/O rtho [id number] 2.7mm 4.5mm 15mm Self Retaining Screwdriver Self Tap Flat Head - [id number] Implanted:Qty: 1 on 10/27/2019 by Myriam Murphy MD at [facility] Screw Right: Ankle [employer]/Or tho [id number] / / [employer]/O rtho [id number] Evos 2.7mm 4.5mm 18mm Self Tap Cortex T8 Screw Bone Nonsterile - [id number] Implanted:Qty: 2 on 10/27/2019 by Myriam Murphy MD at [facility] Screw Right: Ankle [employer]Or tho [id number] / / [employer]/O rtho [id number] 2.7mm 4.5mm 24mm Self Retaining Screwdriver Self Tap Flat Head - [id number] Implanted:Qty: 1 on 10/27/2019 by Myriam Murphy MD at [facility] Right: Ankle [employer]Or tho [id number] / / Procedures Procedure Name Priority Date/Time Associated Diagnosis Comments OCT, RETINA - OU - BOTH EYES Routine 10/03/2024 10:15 AM CDT Papilledema of both eyes IIH (idiopathic intracranial hypertension) Papilledema associated with increased intracranial pressure OCT, OPTIC NERVE - OU - BOTH EYES Routine 10/03/2024 10:15 AM CDT Papilledema of both eyes IIH (idiopathic intracranial hypertension) Papilledema associated with increased intracranial pressure from Last 3 Months Results * OCT, Retina - OU - Both Eyes (10/03/2024 10:15 AM CDT) Central Macular Thickness OS 272 mircometers CONTINUUM Central Macular Thickness OD 265 micrometers CONTINUUM Anatomical Region Laterality Modality Head Other Narrative 10/03/2024 10:17 AM CDT Right Eye Quality was good. Macular thickness was 265 micrometers. Left Eye Quality was good. Macular thickness was 272 mircometers. Notes Ganglion cell layer (GCL)+inner plexiform layer (IPL) thickness: 78um OD, 87um OS. Normal macular and GCC thickness OU. us Paul Pickering MD PhD OPHTH TOMOGRAPHY Edited Resu lt - Final * OCT, Optic Nerve - OU - Both Eyes (10/03/2024 10:15 AM CDT) RNFL OS 102 micrometers CONTINUUM RNFL OD 96 micrometers CONTINUUM Anatomical Region Laterality Modality Head Other Narrative 10/03/2024 10:19 AM CDT Right Eye Reliability was good. Average RNFL thickness 96 micrometers. Left Eye Reliability was good. Average RNFL thickness 102 micrometers. Notes Improving RNFL OU. us Paul Pickering MD PhD OPHTH TOMOGRAPHY Edited Resu lt - Final from Last 3 Months Insurance [facility] PLUS [facility] H[facility]/PPO Address: [address] [address] [place] [address] [facility] CHOICE PLUS [facility] HMO/PPO Address: [address] [place] [address] Care Teams Seafood Service Team Member Relationship Specialty Start Date End Date Tiffany Kay PA [address] [place] [address] PCP - General Physician Public Safety Teacher 02/17/24
--- OUTSIDE RECORDS SUMMARY | 2024-11-16 14:24 | XMS_ITS | Clinical Summary ---
Author Organization [facility] Address [address] [place] [address] Care Team Providers Care Fish Housekeeper Name Role Phone Bebe Bullock MD Primary Care Provider Social History Tobacco Use Types Packs/Day Years Used Date Smoking Tobacco: Never Assessed Comments Unknown Sex and Gender Information Value Date Recorded Sex Assigned at Not on file Legal Sex Female 8:09 AM CDT Gender Identity Not on file Sexual Orientation Not on file Last Filed Vital Signs Vital Sign Reading Time Taken Comments Blood Pressure 132/81 02/02/2021 1:09 PM CDT Pulse 72 02/02/2021 1:09 PM CDT Temperature 36.8 C (98.2 F) 02/02/2021 1:09 PM CDT Respiratory Rate 18 02/02/2021 1:09 PM CDT Oxygen Saturation 98% 02/02/2021 1:09 PM CDT Inhaled Oxygen Concentration - - Weight 117.9 kg (260 lb) 02/02/2021 1:09 PM CDT Height 165.1 cm (5' 5 ) 02/02/2021 1:09 PM CDT Body Mass Index 43.27 02/02/2021 1:09 PM CDT Plan of Treatment Health Maintenance Due Date Last Done Comments Cervical Cancer Screening Pa p Smear (Age 30 to 64) Every 3 Years 1985 Annual Physical 1988 Hepatitis C 2003 DTaP, Tdap and Td Vaccines ( 1 - Tdap) 2004 Hepatitis B Vaccines (1 of 3 - 19+ 3-dose series) 2004 Cervical Cancer Screening Pa p with HPV Testing (Age 30 to 64) Every 5 Years 2015 Cervical Cancer Screening wi th HPV 2015 COVID-19 Vaccine (2023-2 5 season) 2024 11/14/2020, 10/20/2020 HPV Vaccines Aged Out No longer eligi ble based on patient's age to complete this topic Meningococcal B Vaccine Aged Out No l onger eligible based on patient's age to complete this topic Meningococcal Vaccine Aged Out No alexa lou eligible based on patient's age to complete this topic Pneumococcal Vaccine: Pediatrics (0 to 5 Years) and At-Risk Patients (6 to 49 Years) Aged Out No longer eligible b ased on patient's age to complete this topic RSV Immunizations Under 20 Months Aged Out No longer eligible b ased on patient's age to complete this topic Insurance [facility] [place] Advance Directives Documents on File Type Date Recorded Patient Ocean Lifeguard Specialist Expl anation Advance Directives and Living Will 02/22/2013 12:00 AM ADVANCED DIRECTIVES Advance Directives and Living Will 02/14/2013 12:00 AM ADVANCED DIRECTIVES Advance Directives and Living Will 02/08/2013 12:00 AM ADVANCED DIRECTIVES Advance Directives and Living Will 01/24/2013 12:00 AM ADVANCED DIRECTIVES Advance Directives and Living Will 12/27/2012 12:00 AM ADVANCED DIRECTIVES Advance Directives and Living Will 12/06/2012 12:00 AM ADVANCED DIRECTIVES Advance Directives and Living Will 08/04/2012 12:00 AM ADVANCED DIRECTIVES Advance Directives and Living Will 07/02/2011 12:00 AM ADVANCED DIRECTIVES Advance Directives and Living Will 09/15/2010 12:00 AM ADVANCED DIRECTIVES Care Teams Fish Housekeeper Relationship Specialty Start Date End Date Bebe Bullock MD [address] [place] [address] [place] [address] PCP - General FAMILY PRACTICE 02/02/21
--- OUTSIDE RECORDS SUMMARY | 2024-11-16 14:24 | XMS_ITS | Clinical Summary ---
Author Organization [facility] Healthcare Address [address] [place] [address] Care Team Providers Care Insole Rounder Name Role Phone Tiffany Kay Primary Care Pr ovider Allergies Active Allergy Reactions Criticality Noted Date Comments Gluten Stomach upset High 03/30/2024 Medications rizatriptan MOTOR BUILDER WINDER (MAXALT-MOTOR BUILDER WINDER) 10 mg disintegrating tabletIndications: Migraine Take 1 [...] (25 mg total) by mouth every evening Active Active Problems Problem Noted Date Diagnosed [...] 09/26/2014 11/08/2020 Low back pain 09/26/2014 11/08/2020 Encounters Date Type Department Care Team Description 10/03/2024 9:30 AM CDT Office Visit [facility] Ophthalmology [address] [place] [phone] Paul Pickering MD PhD IIH (idiopathic intracranial hypertension) (Primary Dx); Papilledema associated with increased intracranial pressure 10/03/2024 9:20 AM CDT Imaging Exam [facility] Ophthalmology [address] [place] [phone] IIH (idiopathic intracranial hypertension) (Primary Dx); Papilledema of both eyes; Papilledema associated with increased intracranial pressure 09/26/2024 Orders Only [facility] Ophthalmology [address] [place] [phone] Paul Pickering MD PhD Papilledema of both eyes (Primary Dx) from Last 3 Months Immunizations Immunization Administration Dates Next Due Pfizer SARS-CoV-2 Monovalent Vaccination (12+ Yrs) PURPLE 10/20/2020 Surgical History Surgery Date Site/Laterality Comments MYRINGOTOMY W/ TUBES TYMPANIC MEMBRANE REPAIR SECTION 07/26/2015 - 07/25/2016 WISDOM TOOTH EXTRACTION ANKLE SURGERY HYSTERECTOMY Medical History Medical History Date Comments PONV (postoperative nausea a nd vomiting) nausea without vomiting afte r anesthesia Motion sickness Malleolar fracture 10/22/2019 right ankle 2 /2 mechanical fall PCOS (polycystic ovarian syndrome) eclampsia 2016 Migraine Gluten intolerance Meningitis age 13, 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 Obstructive sleep apnea syndrome 11/15/2019 Systemic lupus erythematosus (HCC) Follows with rheumatology BATTERY TEST ENGINEER: Dipti Patterson Long-term use of Plaquenil 11/08/2020 400mg QDAY IIH (idiopathic intracranial hypertension) Family History Medical History Relation Name Comments Kidney disease Father Lymphoma Father Diabetes Mother Macular degeneration Paternal Grandmother Anesthesia problems Neg Hx Relation Name Status Comments Father Mother Paternal Grandmother Social History Tobacco Use Types Packs/Day Years [...] CDT Gender Identity Female 07/10/2021 12:30 PM CARTON CATCHER Sexual Orientation Straight 07/10/2021 12 :30 PM CARTON CATCHER Obstetrics History Last Filed Vital Signs Vital Sign Reading Time Taken Comments Blood Pressure 114/76 05/30/2024 9:42 AM CARTON CATCHER Pulse 69 05/30/2024 9:42 AM CARTON CATCHER Temperature 36.5 C (97.7 F) 05/30/2024 9:42 AM CARTON CATCHER Respiratory Rate 15 10/27/2019 3:00 PM CDT Oxygen Saturation 100% 05/30/2024 9:42 AM CARTON CATCHER Inhaled Oxygen Concentration - - Weight 110.2 kg (243 lb) 07/04/2024 10:21 AM CARTON CATCHER Height 165.1 cm (5' 5 ) 07/04/2024 10:21 AM CARTON CATCHER Body Mass Index 40.44 07/04/2024 10:21 AM CARTON CATCHER Plan of Treatment Health Maintenance Due Date Last Done Comments Depression Screening 1985 Hepatitis C Screening 1985 DTaP/Tdap/Td Vaccine (1 - Tdap) 1996 Varicella Vaccines (1 of 2 - 13+ 2-dose series) 1998 Hepatitis B Screening 2003 Regular Well Visit/Exam 18-64 2003 Pneumococcal vaccine <65 (1 of 2 - PCV) 2004 Zoster Vaccine (1 of 2) 2004 Covid-19 Vaccine (2 - Pfizer risk series) 11/10/2020 10/20/2020 Influenza Vaccine (Season Ended) 2025 HPV Vaccines Aged Out No longer eligi ble based on patient's age to complete this topic Medical Devices Implanted Type Area Manager Floor Device Identifier Shelf Expiration Date Model / Serial / Lot [employer] rtho [id number] Evos Mini 34mm 5 Hole Luz Elena Low Profile Variable Angle Small Bone - [id number] Implanted:Qty: 1 on 10/27/2019 by Myrima Murphy MD at [facility] Plate Right: Ankle [employer]Or tho [id number] / / [employer] rtho [id number] Evos Mini 52mm 5 Hole Luz Elena Low Profile Variable Angle Small Bone - [id number] Implanted:Qty: 1 on 10/27/2019 by Myriam Murphy MD at [facility] Plate Right: Ankle [employer]Or tho [id number] / / [employer] r[employer]o [id number] Evos Mini 140mm 20 Hole Strenght Low Profile Variable Angle Small - [id number] Implanted:Qty: 1 on 10/27/2019 by Myriam Murphy MD at [facility] Plate Right: Ankle [employer]Or tho [id number] / / [employer] rtho [id number] 2.7mm 4.3mm 24mm Self Tap Lock T8 2mm Screw Bone Evos - [id number] Implanted:Qty: 1 on 10/27/2019 by Myriam Murphy MD at [facility] Screw Right: Ankle [employer]/Or tho [id number] / / [employer] rtho [id number] Evos 2.4mm 14mm Self Tap Self Retaining Drive Small Bone Long - [id number] Implanted:Qty: 1 on 10/27/2019 by Myriam Murphy MD at [facility] Screw Right: Ankle [employer]/Or tho [id number] / / [employer] rtho [id number] Evos 2.4mm 16mm Self Tap Self Retaining Drive Small Bone Long - [id number] Implanted:Qty: 1 on 10/27/2019 by Myriam Murphy MD at [facility] Screw Right: Ankle [employer]/Or tho [id number] / / [employer]/O rtho [id number] Evos 3.5mm 80mm Self Tap Cortex Screw Bone Sterile - [id number] Implanted:Qty: 1 on 10/27/2019 by Myriam Murphy MD at [facility] Screw Right: Ankle [employer]/Or tho [id number] / / [employer]/O rtho [id number] 2.7mm 4.5mm 36mm Self Tap Cortex T8 2mm Screw Bone Evos - [id number] Implanted:Qty: 1 on 10/27/2019 by Myriam Murphy MD at [facility] Screw Right: Ankle [employer]/Or tho [id number] / / [employer]Rich[employer]/O rtho [id number] 2.7mm 4.5mm 28mm Self Tap Cortex T8 2mm Screw Bone Evos - [id number] Implanted:Qty: 2 on 10/27/2019 by Myriam Murphy MD at [facility] Screw Right: Ankle [employer]/Or tho [id number] / / [employer] rtho [id number] Evos Mini 2.7mm 4.5mm 40mm Self Tap Floor And Wall Applier Liquid Long Bone Small Bone - [id number] Implanted:Qty: 2 on 10/27/2019 by Myriam Murphy MD at [facility] Screw Right: Ankle [employer]/Or tho [id number] / / [employer] r[employer]o [id number] Evos 2.7mm 4.5mm 34mm Self Tap Cortex T8 Screw Bone Nonsterile - [id number] Implanted:Qty: 1 on 10/27/2019 by Myriam Murphy MD at [facility] Screw Right: Ankle [employer]/Or tho [id number] / / [employer] rtho [id number] 2.7mm 4.5mm 15mm Self Retaining Screwdriver Self Tap Flat Head - [id number] Implanted:Qty: 1 on 10/27/2019 by Myriam Murphy MD at [facility] Screw Right: Ankle [employer]/Or tho [id number] / / [employer]/O rtho [id number] Evos 2.7mm 4.5mm 18mm Self Tap Cortex T8 Screw Bone Nonsterile - [id number] Implanted:Qty: 2 on 10/27/2019 by Myriam Murphy MD at [facility] Screw Right: Ankle [employer]/Or tho [id number] / / [employer]Rich[employer]/O rtho [id number] 2.7mm 4.5mm 24mm Self Retaining Screwdriver Self Tap Flat Head - [id number] Implanted:Qty: 1 on 10/27/2019 by Myriam Murphy MD at [facility] Right: Ankle [employer]Or tho [id number] / / Procedures Procedure Name Priority Date/Time [...] - Final from Last 3 Months Insurance [facility] [place] [phone] [place] Care Teams Insole Rounder Relationship Specialty Start Date End Date Tiffany Kay PA [address] [place] [address] PCP - General Physician Convertible Top Installer 02/17/24
--- OUTSIDE RECORDS SUMMARY | 2024-11-16 14:25 | XMS_ITS | Data Portability ---
Author Organization [facility] [place] Address [address] [facility] [place] [address] Care Team Providers Care Resident Buyer Name Role Phone LAURA SHAH Primary Care Provider Assessment Encounter Date Assessment Date Assessment LastModified by Organization Details LastModified Time 01/31/2024 01/31/2024 Pap smear UTD pr ior to [facility] that was completed for large fibroids. Ovaries remain. Dr. Jo Ann Pereira Eye exam : UTD with hydroxychloroquine on board. Dental exam: UTD every 6 months. No hx of mammogram. no fam hx of breast cancer Family hx of colon cancer in maternal GM at age 50's. Consider screening at age 40. Not available 01/31/2024 11:02:26 Plan of Treatment Reminders Order Date Submit Date Provider Last Modified By Organization Details Last Modified Time Details Appointments ANY 15 2024 10:30A M BEN Mckeon Not available Not available Not available Lab TSH + free T4, serum 2024 025 [email or web address] [facility], [address], [place], [address], 09/19/2024 12:11:38 T3, free, serum or plasma 2024 025 [email or web address] [facility], [address], [place], [address], 09/19/2024 12:11:38 urinalysi s, complete 2024 025 AKIRA [facility], [address], [place], [address], 08/09/2024 07:10:50 culture, urine 2024 025 [facility], [address], [place], [address], 08/10/2024 07:10:09 CMP, serum or plasma 2024 025 [facility], [address], [place], [address], 08/09/2024 07:10:47 CBC w/ auto diff 2024 025 [facility], [address], [place], [address], 08/09/2024 07:10:53 cobalamin and folate panel, serum 2024 025 [facility], [address], [place], [address], 08/09/2024 07:10:48 insulin, serum 2024 025 [facility], [address], [place], [address], 08/09/2024 07:10:52 HbA1c (hemoglob in A1c), blood 2024 025 [facility], [address], [place], [address], 08/09/2024 07:10:49 lipid panel, serum 2024 025 [facility], [address], [place], [address], 08/09/2024 07:10:45 TSH + free T4, serum 2024 025 RUDY [facility], [address], [place], [address], 08/09/2024 07:10:46 T3, free, serum or plasma 2024 025 RUDY [facility], [address], [place], [address], 08/09/2024 07:10:54 Referral None recorded. Procedures None recorded. Surgeries None recorded. Imaging US, thyroid 2024 025 [facility], [address], [place], [address], 08/09/2024 11:27:37 MRI, brain + internal auditory canal, w/wo contrast 2023 024 [facility], [address], [place], [address], 02/16/2024 07:33:56 Medication Orders sertralin e 25 mg tablet 2024 025 [facility] #[id number], [address], [place], [id number], 09/19/2024 12:11:49 methocarb seven 750 mg tablet 2023 025 [facility] #[id number], [address], [place], [id number], 08/04/2024 11:50:08 meloxicam 7.5 mg tablet 2023 025 [facility] #52108, [address], [place], [id number], 08/04/2024 11:49:59 amoxicill in 875 mg-potass ium clavulana te 125 mg tablet 2023 024 [email or web address] [facility] #[id number], [address], [place], [place], [id number], 07/04/2024 09:08:30 Patient TargetsNo targets recorded. Patient Instructions Encounter Date Encounter Id Patient Instructions Last Modified By Organization Details Last Modified Time 2024 [id number] A healthy lifestyle: care instructions Not available 03/27/2024 10:41:15 08/04/2024 [id number] A healthy lifestyle: care instructions Not available 08/07/2024 10:27:07 09/19/2024 [id number] A healthy lifestyle: care instructions Not available 09/19/2024 12:11:38 Reason for Referral None Reported. Results Created Date Observation Date Name Description Value Unit Range Abnormal Flag Note LastModifiedBy Organization Detail LastModifiedTime 08/08/1908/09/2024 LIPID PANEL W/ CHOL/ HDL RATIO cholesterol, total 200 mg/dL 100-19 9 above high normal Not Available [facility] ([facility]) [address] [place], [address], 08/09/2024 07:10:45 08/08/1908/09/2024 LIPID PANEL W/ CHOL/ HDL RATIO triglyceride s 122 mg/dL 0-149 Not Available [facility] ([facility]) [address] [place], [address], 08/09/2024 07:10:45 08/08/1908/09/2024 LIPID PANEL W/ CHOL/ HDL RATIO HDL cholesterol 46 mg/dL >39 Not Available [facility] ([facility]) [address] [place], [address], 08/09/2024 07:10:45 08/08/1908/09/2024 LIPID PANEL W/ CHOL/ HDL RATIO VLDL cholesterol og 22 mg/dL 5-40 Not Available [facility] ([facility]) [address] [place], [address], 08/09/2024 07:10:45 08/08/19 25 08/09/2024 LIPID PANEL W/ CHOL/ HDL RATIO LDL chol calc ([facility]) 132 mg/dL 0-99 above high normal Not Available [facility] ([facility]) [address] [place], [address], 08/09/2024 07:10:45 08/08/19 25 08/09/2024 LIPID PANEL W/ CHOL/ HDL RATIO T. chol/HDL ratio 4.3 ratio 0.0-4. 4 T. Chol/ HDL Ratio Men Women 1/2 Avg.R isk 3.4 3.3 Avg.R isk 5.0 4.4 2X Avg.R isk 9.6 7.1 3X Avg.R isk 23.4 11.0 Not Available [facility] ([facility]) [address] [place], [address], 08/09/2024 07:10:45 08/08/19 25 08/09/2024 TSH+F REE T4 TSH 0.210 uIU/m L 0.450- 4.500 below low normal Not Available [facility] ([facility]) [address] [place], [address], 08/09/2024 07:10:46 08/08/19 25 08/09/2024 TSH+F REE T4 T4,free(dire ct) 1.34 NG/dL 0.82-1 .77 Not Available [facility] ([facility]) [address] [place], [address], 08/09/2024 07:10:46 08/08/19 25 08/09/2024 COMP. METAB OLIC PANEL (14) glucose 81 mg/dL 70-99 Not Available [facility] ([facility]) [address] [place], [address], 08/09/2024 07:10:47 08/08/19 25 08/09/2024 COMP. METAB OLIC PANEL (14) BUN 16 mg/dL 6-20 Not Available [facility] ([facility]) [address] [place], [address], 08/09/2024 07:10:47 08/08/19 25 08/09/2024 COMP. METAB OLIC PANEL (14) creatinine 0.87 mg/dL 0.57-1 .00 Not Available [facility] ([facility]) [address] [place], [address], 08/09/2024 07:10:47 08/08/19 25 08/09/2024 COMP. METAB OLIC PANEL (14) eGFR 87 mL/mi n/1.7 3 >59 Not Available [facility] ([facility]) [address] [place], [address], 08/09/2024 07:10:47 08/08/19 25 08/09/2024 COMP. METAB OLIC PANEL (14) BUN/creatini ne ratio 18 9-23 Not Available [facility] ([facility]) [address] [place], [address], 08/09/2024 07:10:47 08/08/19 25 08/09/2024 COMP. METAB OLIC PANEL (14) sodium 139 mmol/ L 134-14 4 Not Available [facility] ([facility]) [address] [place], [address], 08/09/2024 07:10:47 08/08/19 25 08/09/2024 COMP. METAB OLIC PANEL (14) potassium 4.2 mmol/ L 3.5-5. 2 Not Available [facility] ([facility]) [address] [place], [address], 08/09/2024 07:10:47 08/08/19 25 08/09/2024 COMP. METAB OLIC PANEL (14) chloride 109 mmol/ L 96-106 above high normal Not Available [facility] ([facility]) [address] [place], [address], 08/09/2024 07:10:47 08/08/19 25 08/09/2024 COMP. METAB OLIC PANEL (14) carbon dioxide, total 17 mmol/ L 20-29 below low normal Not Available [facility] ([facility]) [address] [facility], [place], [address], 08/09/2024 07:10:47 08/08/19 25 08/09/2024 COMP. METAB OLIC PANEL (14) calcium 9.7 mg/dL 8.7-10 .2 Not Available [facility] ([facility]) [address] [place], [address], 08/09/2024 07:10:47 08/08/19 25 08/09/2024 COMP. METAB OLIC PANEL (14) protein, total 7.1 g/dL 6.0-8. 5 Not Available [facility] ([facility]) [address] [place], [address], 08/09/2024 07:10:47 08/08/19 25 08/09/2024 COMP. METAB OLIC PANEL (14) albumin 4.5 g/dL 3.9-4. 9 Not Available [facility] ([facility]) [address] [place], [address], 08/09/2024 07:10:47 08/08/19 25 08/09/2024 COMP. METAB OLIC PANEL (14) globulin, total 2.6 g/dL 1.5-4. 5 Not Available [facility] ([facility]) [address] [place], [address], 08/09/2024 07:10:47 08/08/19 25 08/09/2024 COMP. METAB OLIC PANEL (14) bilirubin, total 0.3 mg/dL 0.0-1. 2 Not Available [facility] ([facility]) [address] [place], [address], 08/09/2024 07:10:47 08/08/19 25 08/09/2024 COMP. METAB OLIC PANEL (14) alkaline phosphatase 61 IU/L 44-121 Not Available [facility] ([facility]) [address] [facility], [place], [address], 08/09/2024 07:10:47 08/08/19 25 08/09/2024 COMP. METAB OLIC PANEL (14) AST (SGOT) 18 IU/L 0-40 Not Available [facility] ([facility]) [address] [facility], [place], [address], 08/09/2024 07:10:47 08/08/19 25 08/09/2024 COMP. METAB OLIC PANEL (14) ALT (SGPT) 17 IU/L 0-32 Not Available [facility] ([facility]) [address] [facility], [place], [address], 08/09/2024 07:10:47 08/08/19 25 08/09/2024 MICRO SCOPI C EXAMI NATIO N WBC 0-5 /hpf 0-5 Not Available [facility] ([facility]) [address] [facility], [place], [address], 08/09/2024 07:10:48 08/08/19 25 08/09/2024 MICRO SCOPI C EXAMI NATIO N RBC NONE SEEN /hpf 0-2 Not Available [facility] ([facility]) [address] [facility], [place], [address], 08/09/2024 07:10:48 08/08/19 25 08/09/2024 MICRO SCOPI C EXAMI NATIO N epithelial cells (non renal) 0-10 /hpf 0-10 Not Available [facility] ([facility]) [address] [facility], [place], [address], 08/09/2024 07:10:48 08/08/19 25 08/09/2024 MICRO SCOPI C EXAMI NATIO N casts NONE SEEN /lpf nonese en Not Available [facility] ([facility]) [address] [facility], [place], [address], 08/09/2024 07:10:48 08/08/19 25 08/09/2024 MICRO SCOPI C EXAMI NATIO N bacteria NONE SEEN nonese en/few Not Available [facility] ([facility]) [address] [facility], [place], [address], 08/09/2024 07:10:48 08/08/19 25 08/09/2024 VITAM IN B12 AND FOLAT E vitamin B12 >2000 pg/mL 232-12 45 above high normal Not Available [facility] ([facility]) [address] [facility], [place], [address], 08/09/2024 07:10:48 08/08/1908/09/2024 VITAM IN B12 AND FOLAT E folate (folic acid), serum 5.9 NG/mL >3.0 A serum folat e juve ntrat ion of less than 3.1 ng/mL is consi dered to repre sent clini og defic iency . Not Available [facility] ([facility]) [address] [facility], [place], [address], 08/09/2024 07:10:48 08/08/19 25 08/09/2024 HEMOG LOBIN A1C hemoglobin A1C 5.2 % 4.8-5. 6 Predi abete s: 5.7 - 6.4 Diabe stephanie: >6.4 Glyce nawaf contr ol for adult s with diabe stephanie: <7.0 Not Available [facility] ([facility]) [address] [facility], [place], [address], 08/09/2024 07:10:49 08/08/19 25 08/09/2024 URINA LYSIS , COMPL ETE specific gravity 1.007 1.005- 1.030 Not Available [facility] ([facility]) [address] [facility], [place], [address], 08/09/2024 07:10:50 08/08/19 25 08/09/2024 URINA LYSIS , COMPL ETE pH 6.0 5.0-7. 5 Not Available [facility] ([facility]) [address] [facility], [place], [address], 08/09/2024 07:10:50 08/08/19 25 08/09/2024 URINA LYSIS , COMPL ETE urine-color YELLOW yellow Not Available [facility] ([facility]) [address] [place], [address], 08/09/2024 07:10:50 08/08/19 25 08/09/2024 URINA LYSIS , COMPL ETE appearance CLEAR clear Not Available [facility] ([facility]) [address] [place], [address], 08/09/2024 07:10:50 08/08/19 25 08/09/2024 URINA LYSIS , COMPL ETE WBC esterase NEGATI VE negati ve Not Available [facility] ([facility]) [address] [place], [address], 08/09/2024 07:10:50 08/08/19 25 08/09/2024 URINA LYSIS , COMPL ETE protein NEGATI VE negati ve/tra ce Not Available [facility] ([facility]) [address] [place], [address], 08/09/2024 07:10:50 08/08/19 25 08/09/2024 URINA LYSIS , COMPL ETE glucose NEGATI VE negati ve Not Available [facility] ([facility]) [address] [place], [address], 08/09/2024 07:10:50 08/08/19 25 08/09/2024 URINA LYSIS , COMPL ETE ketones NEGATI VE negati ve Not Available [facility] ([facility]) [address] [place], [address], 08/09/2024 07:10:50 08/08/19 25 08/09/2024 URINA LYSIS , COMPL ETE occult blood NEGATI VE negati ve Not Available [facility] ([facility]) [address] [facility], [place], [address], 08/09/2024 07:10:50 08/08/19 25 08/09/2024 URINA LYSIS , COMPL ETE bilirubin NEGATI VE negati ve Not Available [facility] ([facility]) [address] [facility], [place], [address], 08/09/2024 07:10:50 08/08/19 25 08/09/2024 URINA LYSIS , COMPL ETE urobilinogen ,semi-qn 0.2 mg/dL 0.2-1. 0 Not Available [facility] ([facility]) [address] [facility], [place], [address], 08/09/2024 07:10:50 08/08/19 25 08/09/2024 URINA LYSIS , COMPL ETE nitrite, urine NEGATI VE negati ve Not Available [facility] ([facility]) [address] [facility], [place], [address], 08/09/2024 07:10:50 08/08/19 25 08/09/2024 URINA LYSIS , COMPL ETE microscopic examination COMMEN T Micro scopi c follo ws if indic ated. Not Available [facility] ([facility]) [address] [facility], [place], [address], 08/09/2024 07:10:50 08/08/19 25 08/09/2024 URINA LYSIS , COMPL ETE microscopic examination SEE BELOW: Micro scopi c was indic ated and was perfo rmed. Not Available [facility] ([facility]) [address] [facility], [place], [address], 08/09/2024 07:10:50 08/08/19 08/09/2024 INSUL IN insulin 10.3 uIU/m L 2.6-24 .9 Not Available [facility] ([facility]) [address] [facility], [place], [address], 08/09/2024 07:10:51 08/08/19 25 08/08/2024 CBC WITH DIFFE RENTI AL/PL ATELE T WBC 5.8 x10e3 /uL 3.4-10 .8 Not Available [facility] ([facility]) [address] [facility], [place], [address], 08/09/2024 07:10:52 08/08/1908/08/2024 CBC WITH DIFFE RENTI AL/PL ATELE T RBC 5.28 x10e6 /uL 3.77-5 .28 Not Available [facility] ([facility]) [address] [facility], [place], [address], 08/09/2024 07:10:52 08/08/1908/08/2024 CBC WITH DIFFE RENTI AL/PL ATELE T hemoglobin 14.8 g/dL 11.1-1 5.9 Not Available [facility] ([facility]) [address] [facility], [place], [address], 08/09/2024 07:10:52 08/08/1908/08/2024 CBC WITH DIFFE RENTI AL/PL ATELE T hematocrit 45.5 % 34.0-4 6.6 Not Available [facility] ([facility]) [address] [facility], [place], [address], 08/09/2024 07:10:52 08/08/1908/08/2024 CBC WITH DIFFE RENTI AL/PL ATELE T MCV 86 fL 79-97 Not Available [facility] ([facility]) [address] [place], [address], 08/09/2024 07:10:52 08/08/19 25 08/08/2024 CBC WITH DIFFE RENTI AL/PL ATELE T MCH 28.0 pg 26.6-3 3.0 Not Available [facility] ([facility]) [address] [facility], [place], [address], 08/09/2024 07:10:52 08/08/19 25 08/08/2024 CBC WITH DIFFE RENTI AL/PL ATELE T MCHC 32.5 g/dL 31.5-3 5.7 Not Available [facility] ([facility]) [address] [facility], [place], [address], 08/09/2024 07:10:52 08/08/19 25 08/08/2024 CBC WITH DIFFE RENTI AL/PL ATELE T RDW 13.0 % 11.7-1 5.4 Not Available [facility] ([facility]) [address] [facility], [place], [address], 08/09/2024 07:10:52 08/08/19 25 08/08/2024 CBC WITH DIFFE RENTI AL/PL ATELE T platelets 215 x10e3 /uL 150-45 0 Not Available [facility] ([facility]) [address] [facility], [place], [address], 08/09/2024 07:10:52 08/08/19 25 08/08/2024 CBC WITH DIFFE RENTI AL/PL ATELE T neutrophils 62 % notest ab. Not Available [facility] ([facility]) [address] [facility], [place], [address], 08/09/2024 07:10:52 08/08/19 25 08/08/2024 CBC WITH DIFFE RENTI AL/PL ATELE T lymphs 28 % notest ab. Not Available [facility] ([facility]) [address] [facility], [place], [address], 08/09/2024 07:10:52 08/08/19 25 08/08/2024 CBC WITH DIFFE RENTI AL/PL ATELE T monocytes 8 % notest ab. Not Available [facility] ([facility]) [address] [facility], [place], [address], 08/09/2024 07:10:52 08/08/19 25 08/08/2024 CBC WITH DIFFE RENTI AL/PL ATELE T eos 1 % notest ab. Not Available [facility] ([facility]) [address] [facility], [place], [address], 08/09/2024 07:10:52 08/08/19 25 08/08/2024 CBC WITH DIFFE RENTI AL/PL ATELE T basos 1 % notest ab. Not Available [facility] ([facility]) [address] [facility], [place], [address], 08/09/2024 07:10:52 08/08/19 25 08/08/2024 CBC WITH DIFFE RENTI AL/PL ATELE T neutrophils (absolute) 3.6 x10e3 /uL 1.4-7. 0 Not Available [facility] ([facility]) [address] [facility], [place], [address], 08/09/2024 07:10:52 08/08/19 25 08/08/2024 CBC WITH DIFFE RENTI AL/PL ATELE T lymphs (absolute) 1.6 x10e3 /uL 0.7-3. 1 Not Available [facility] ([facility]) [address] [facility], [place], [address], 08/09/2024 07:10:52 08/08/19 25 08/08/2024 CBC WITH DIFFE RENTI AL/PL ATELE T monocytes(ab solute) 0.5 x10e3 /uL 0.1-0. 9 Not Available [facility] ([facility]) [address] [facility], [place], [address], 08/09/2024 07:10:52 08/08/19 25 08/08/2024 CBC WITH DIFFE RENTI AL/PL ATELE T eos (absolute) 0.1 x10e3 /uL 0.0-0. 4 Not Available [facility] ([facility]) [address] [place], [address], 08/09/2024 07:10:52 08/08/19 25 08/08/2024 CBC WITH DIFFE RENTI AL/PL ATELE T baso (absolute) 0.1 x10e3 /uL 0.0-0. 2 Not Available [facility] ([facility]) [address] [place], [address], 08/09/2024 07:10:52 08/08/1908/08/2024 CBC WITH DIFFE RENTI AL/PL ATELE T immature granulocytes 0 % notest ab. Not Available [facility] ([facility]) [address] [place], [address], 08/09/2024 07:10:52 08/08/19 25 08/08/2024 CBC WITH DIFFE RENTI AL/PL ATELE T immature grans (abs) 0.0 x10e3 /uL 0.0-0. 1 Not Available [facility] ([facility]) [address] [place], [address], 08/09/2024 07:10:52 08/08/1908/09/2024 TRIIO DOTHY LENCHO E (T3), FREE triiodothyro nine (T3), free 2.8 pg/mL 2.0-4. 4 Not Available [facility] ([facility]) [address] [place], [address], 08/09/2024 07:10:54 08/08/1908/09/2024 URINE CULTU RE, ROUTI NE urine culture, routine FINAL REPORT Not Available [facility] ([facility]) [address] [place], [address], 08/10/2024 07:10:09 08/08/19 25 08/09/2024 URINE CULTU RE, ROUTI NE result 1 COMMEN T Cultu re shows less than 10,00 0 colon y formi ng units of bacte debby per parag liter of urine . This colon y count is not gener ally consi dered to be clini wilbur signi ficlg t. Not Available [facility] ([facility]) [address] [facility], [place], [address], 08/10/2024 07:10:09 02/16/20 24 02/14/2024 MRI, brain + inter nal audit ory canal , w/wo contr ast No observ ation record ed. [facility] [address], [place], [address], 02/16/2024 12:55:03 04/04/20 24 04/03/2024 XR, lumbo sacra l spine , 2 or 3 view No observ ation record ed. [facility] [address], [place], [address], 04/07/2024 15:26:31 08/09/19 25 08/09/2024 US, thyro id No observ ation record ed. [email or web address] [facility] [address], [place], [address], 09/19/2024 11:41:20 Result Notes None recorded. Problems Name Problem SNOMED Code Status Onset Date Resolution Date Notes Provider Name and Address Organization Details Recorded Time Body mass index 40+ - severely obese 807276976 Active 2023 BEN Mckeon Attn: Ainsley jain,[address] [facility], [place], [address], [facility] 4 10:48:46 Undifferent iated connective tissue disease 007589764 Active 2023 BEN Mckeon Attn: Ainsley g,[address] [facility], [place], [address], [facility] 4 10:54:42 Headache 48948548 Active 2023 BEN Mckeon Attn: Ainsley jain,[address] [place], [address], [place] [facility] 4 10:54:43 Hypothyroid ism 72839334 Active 2023 BEN Mckeon Attn: Ainsley jain,[address] [place], [address], [place] [facility] 4 10:55:06 Long-term drug therapy Active 2023 BEN Mckeon Attn: Ainsley jain,[address] [place], [address], [place] [facility] 4 10:55:15 Hyperlipide nasir 15787948 Active 2023 BEN Mckeon Attn: Ainsley jain,[address] [place], [address], [place] [facility] 4 11:04:22 Polycystic ovary syndrome 718207728 Active 2023 BEN Mckeon Attn: Ainsley jain,[address] [place], [address], [place] [facility] 4 11:09:50 Subjective pulsatile tinnitus of right ear 9040236007331 108 Active 2023 BEN Mckeon Attn: Ainsley jain,[address] [place], [address], [place] [facility] 4 13:00:20 Low back pain 476868377 Active 2023 BEN Mckeon Attn: Ainsley g,[address] [place], [address], [place] [facility] 4 10:40:48 Optic disc swelling 067930883 Active 2023 BEN Mckeon Attn: Ainsley jain,[address] [place], [address], [place] [facility] 4 10:41:04 Obesity 672558192 Active 2023 BEN Mckeon Attn: Accountin g,[address] [facility], [place], [address], [place] [facility] 4 10:41:11 Goiter 3155294 Active 2024 BEN Mckeon Attn: Accountin g,[address] [facility], [place], [address], [place] [facility] 5 13:20:31 Benign intracrania l hypertensio n 74275738 Active 2024 BEN Mckeon Attn: Accountin g,[address] [facility], [place], [address], [place] [facility] 5 13:28:58 Insulin resistance 149926622 Active 2024 BEN Mckeon Attn: Accountin g,[address] [facility], [place], [address], [place] [facility] 5 13:29:04 Dysuria 86672703 Active 2024 BEN Mckeon Attn: Accountin g,[address] [place], [address], [place] [facility] 5 13:29:06 Migraine 27555189 Active 2024 BEN Mckeon Attn: Andreein g,[address] [facility], [place], [address], [place] [facility] 5 13:29:07 Body mass index 30+ - obesity 670249648 Active 2024 BEN Mckeon Attn: Accountin g,[address] [facility], [place], [address], [place] [facility] 5 11:46:36 Seasonal affective disorder 314538783 Active 2024 BEN Mckeon Attn: Ainsley g,[address] [facility], [place], [address], [facility] 00:44:26 Problem Notes None recorded. Procedures Surgical History Date Name Laterality Status Provider Name and Address Organization Details Recorded Time 07/26/19 23 Total hysterectomy completed Paris Briscoe [facility] 01/31/2024 10:42:51 07/26/19 13 section completed Paris Briscoe [facility] 01/31/2024 10:43:02 07/26/18 95 Tonsillectomy completed Paris Briscoe [facility] 01/31/2024 10:42:41 Imaging Results Imaging Date Name Status LastModified by Organiz ation Details LastModified Time 02/14/2024 MRI, brain + internal auditory canal, w/wo contrast completed [facility] [address], [place], [address], 02/16/2024 12:55:03 04/03/2024 XR, lumbosacral spine, 2 or 3 view completed [facility] [address], [place], [address], 04/07/2024 15:26:31 08/09/2024 US, thyroid completed [email or web address] [address], [place], [address], 09/19/2024 11:41:20 Procedure Notes None recorded. Medical Equipment None Reported. Allergies No known drug allergies Medications Name Sig Start Date Stop Date Status Note LastModified by Organization Details LastModified Time acetazola mide ER 500 mg capsule,e xtended release TAKE 2 CAPSULES (1,000 MG TOTAL) BY MOUTH TWICE A DAY active Not Available Not Available No t Available ondansetr on HCl 4 mg tablet 4 MG ORALLY THREE TIMES A DAY NEEDED FOR NAUSEA AND VOMITING 01/30 completed Not Available Not Available Not Available prednison e 20 mg tablet PLEASE SEE ATTACHED FOR DETAILED DIRECTIO NS 01/30 completed Patient stated she is no longer taking this medicati on Not Available Not Available Not Available ciproflox acin 500 mg tablet TAKE 1 TABLET BY MOUTH EVERY 12 HOURS FOR 5 DAYS 01/30 completed Not Available Not Available Not Available sulfameth oxazole 800 mg-trimet hoprim 160 mg tablet Take 1 tablet every 12 hours by oral route, for UTI. 07/18 completed Not Available Not Available Not Available levothyro xine 75 mcg tablet TAKE 1 TABLET BY MOUTH EVERY DAY IN THE MORNING 01/30 completed Patient stated she is no longer taking 75 now it is 88mcg Not Available Not Available Not Available meloxicam 7.5 mg tablet TAKE 1 TABLET BY MOUTH TWICE DAILY 08/04 completed Not Available Not Available Not Available oxycodone -acetamin ophen 5 mg-325 mg tablet 1 - 2 TABLET ORALLY EVERY 6 HOURS NEEDED FOR PAIN 01/30 completed Patient stated she is no longer taking this medicati on Not Available Not Available Not Available levothyro xine 88 mcg tablet Take by oral route for 90 days. active Not Available Not Available No t Available methocarb seven 750 mg tablet TAKE 1 TABLET BY MOUTH THREE TIMES DAILY FOR LOWER BACK PAIN 08/04 completed Not Available Not Available Not Available dexametha sone 1 mg tablet TAKE 1 TABLET BY MOUTH AT 10 PM THE NIGHT BEFORE A AM CORTISOL 1 DAYS 01/30 completed Patient stated she is no longer taking this medicati on Not Available Not Available Not Available rizatript an 10 mg disintegr ating tablet Take by oral route for 5 days. active Not Available Not Available No t Available sertralin e 25 mg tablet TAKE 1 TABLET BY MOUTH EVERY DAY IN THE EVENING active Not Available Not Available No t Available zinc 50 mg tablet Take 1 tablet every day by oral route. 09/19 completed Not Available Not Available Not Available hydroxych loroquine 200 mg tablet TAKE 2 TABLETS BY MOUTH EVERY DAY active Not Available Not Available No t Available scopolami ne 1 mg over 3 days transderm al patch APPLY 1 PATCH EVERY 3 DAYS 01/30 completed Patient stated she is no longer taking this medicati on Not Available Not Available Not Available methylpre dnisolone 4 mg tablets in a dose pack take as directed starting 04-01-2407/04 completed Not Available Not Available Not Available amoxicill in 875 mg-potass ium clavulana te 125 mg tablet TAKE 1 TABLET BY MOUTH EVERY 12 HOURS 07/04 completed Not Available Not Available Not Available clindamyc in 1 % lotion APPLY THIN LAYER TO AFFECTED AREA AT GROIN DAILY AND APPLY TO INFLAMED BUMPS TWICE A DAY NEEDED 01/30 completed Patient stated she is no longer taking this medicati on Not Available Not Available Not Available nitrofura ntoin monohydra te/macroc rystals 100 mg capsule Take 1 capsule every 12 hours by oral route, for UTI. 08/04 completed Not Available Not Available Not Available magnesium 08/04 completed 240 mcg 2 times a day Not Available Not Available Not Available selenium 200 mcg capsule Take 1 capsule every day by oral route. 08/04 completed vitmain Not Available Not Available Not Available Qulipta 60 mg tablet TAKE 1 TABLET BY MOUTH EVERY DAY active Not Available Not Available No t Available Vitals Date Recorded Body weight Body mass index (BMI) Body height Heart rate Oxygen saturation Oxygen saturation in Arterial blood by Pulse oximetry Systolic blood pressure Diastolic blood pressure Provider Name and Address Organization Details Last Updated DateTime 4 423091. 76 g 43.5 kg/m2 165.1 cm 70 /min 98 % 98 % 138 mm[Hg] 72 mm[Hg] Paris Briscoe MA [facility] 4 10:45:36 Date Recorded Respiratory rate Systolic blood pressure Diastolic blood pressure Provider Name and Address Organization Details Last Updated DateTime 01/31/2024 18 /min 122 mm[Hg] 80 mm[Hg] BEN Mckeon Attn: Accounting, [address] [place], [address], [facility] 01/31/2024 11:09:41 Date Recorded Body height Body mass index (BMI) Body weight Respiratory rate Oxygen saturation Oxygen saturation in Arterial blood by Pulse oximetry Heart rate Systolic blood pressure Diastolic blood pressure Provider Name and Address Organization Details Last Updated DateTime 4 165.1 cm 42.1 kg/m2 853136. 16 g 18 /min 97 % 97 % 80 /min 126 mm[Hg] 82 mm[Hg] Reinaldo Trivedi MA [facility] 12:14:13 Date Recorded Body height Body mass index (BMI) Body weight Oxygen saturation Oxygen saturation in Arterial blood by Pulse oximetry Heart rate Systolic blood pressure Diastolic blood pressure Provider Name and Address Organization Details Last Updated DateTime 165.1 cm 38.9 kg/m2 885672. 61 g 99 % 99 % 79 /min 126 mm[Hg] 82 mm[Hg] Reinaldo Trivedi MA [facility] 11:35:41 Date Recorded Respiratory rate Provider Name a nd Address Organization Details Last Updated DateTime 09/19/2024 16 /min BEN Mckeon Attn: Account[employer],[address] [place], [address], [facility] 09/19/2024 12:13:04 Social History Question Answer Notes LastModified by Organizat ion Details LastModified Time Tobacco Smoking Status Never Smoker Paris Briscoe MA null, [facility] 01/31/2024 10:41:24 Do You Have An Advance Directive? Yes Information not available 01/31/2024 What Is Your Level Of Alcohol Consumption? Occasional Information not available 01/31/2024 How Many Years Have You Consumed Alcohol? 10 Information not available 01/31/2024 Are You Blind Or Do You Have Difficulty Seeing? No Information not available 01/31/2024 What Is Your Level Of Caffeine Consumption? Occasional Information not available 01/31/2024 In The 14 Days Before Symptom Onset, Have You Had Close Contact With A Laboratory-confir med COVID-19 While That Case Was Ill? No Information not available 01/31/2024 In The 14 Days Before Symptom Onset, Have You Had Close Contact With A Person Who Is Under Investigation For COVID-19 While That Person Was Ill? No Information not available 01/31/2024 Have You Been To An Area Known To Be High Risk For COVID-19? No Information not available 01/31/2024 Are You Currently Employed? Yes Information not available 01/31/2024 Are You Deaf Or Do You Have Serious Difficulty Hearing? No Information not available 01/31/2024 What Type Of Diet Are You Following? REGULAR Information not available 01/31/2024 What Is Your Occupation? Self Employed Information not available 01/31/2024 Are There Any Guns Present In Your Home? No Information not available 01/31/2024 What Was The Date Of Your Most Recent Tobacco Screening? 09/19/2024 [email or web address] Information not available 09/19/2024 What Is Your Relationship Status? Information not available 01/31/2024 Do You Use Your Seat Belt Or Car Seat Routinely? Yes Information not available 01/31/2024 Do You Have Smoke And Carbon Monoxide Detectors In Your Home? Yes Information not available 01/31/2024 Do You Feel Stressed (tense, Restless, Nervous, Or Anxious, Or Unable To Sleep At Night)? [id number] Information not available 01/31/2024 Do You Use Any Illicit Or Recreational Drugs? No Information not available 01/31/2024 Do You Use Sunscreen Routinely? Yes Information not available 01/31/2024 Has Tobacco Cessation Counseling Been Provided? No Information not available 01/31/2024 Do You Or Have You Ever Used Any Other Forms Of Tobacco Or Nicotine? No Information not available 01/31/2024 Sex: Female Functional Status Question Answer Note LastModified by Organization D etails LastModified Time Are you able to care for yourself? Yes Information n ot available 01/31/2024 What is your exercise level? Heavy Information not available 01/31/2024 Mental Status None recorded. Family History Relationship Description Onset Age of this Age Resolved Age Notes LastModified by Organization Details LastModified Time Paternal Grandmother Malignant tumor of colon mebyma Not available 2023 10:40:27 Mother Diabetes mellitus mebyma Not available 2023 10:40:34 Mother Hypercholest erolemia mebyma Not available 2023 10:40:40 Mother Hypertensive disorder mebyma Not available 2023 10:40:45 Father Kidney disease mebyma Not available 2023 10:40:52 Father Malignant tumor of prostate mebyma Not available 2023 10:41:00 Medical History Condition Response Thyroid Problems Y Anxiety Disorder Y Acid Reflux (GERD) Y Gynecological History Statement/Question Response Menses Monthly N Current Control Method Hysterectom y Date of LMP Obstetrics History GPAL:G 6 P 6 0 0 6 Type Value Full Term 6 Living 6 Total 6 Immunizations Vaccine Type Date Status Note Provider Thor ojeda and Address Organization Details Recorded Time COVID-19, mRNA, LNP-S, PF, 30 mcg/0.3 mL dose 10/20/2020 completed [place], [place] - [facility] 09/19/2024 11:34:03 COVID-19, mRNA, LNP-S, PF, 30 mcg/0.3 mL dose 11/14/2020 completed [place] [facility] 09/19/2024 11:34:03 Hep A, adult 12/02/2023 completed [facility] [place] [facility] 09/19/2024 11:34:03 Hep A, ped/adol, 2 dose 12/15/2022 completed [facility] [place] [facility] 09/19/2024 11:34:03 Past Encounters Encounter ID Performer Location Encounter Start Date Encounter Closed Date Diagnosis/Indication Diagnosis SNOMED-CT Code Diagnosis ICD10 Code Diagnosis Note [id number] BEN Mckeon [facility] [place] [address] [place] [address] 01/31/2024 10:14:46 01/31/2024 11:39:21 Adult health examination 856988132 Z00.01 new pt wellness exam completed. Body mass index 40+ - severely obese 711094682 Z68.41 BMI is 43.5 Long-term drug therapy 061548116 Z79.899 labs reviewed from September 2023, a1c 5.5%, thyroid stable. vitamin D stable. LDL 116. Headache 88527422 R51.9 2-3 per month. Takes motrin 600mg and rizatripta n and that helps completely . Undifferen tiated connective tissue disease 152410427 M35.1 following with Rheumatolo gy and on hydroxychl oroquine therapy. Some symptoms improved but overall still very symptomati c. she will discuss more with specialist . Hypothyroidism 42235273 E03.[address] Gallo. labs completed a few months ago. Hyperlipidemia 97652247 E78.5 LDL 116 on september labs. Intentiona l weight loss 944087307 R63.8 now on compounded semag[facility]id [facility] Polycystic ovary syndrome 434708079 E28.2 stable. hx reported Poor short -term memory 900363797 R41.3 noted on review of systems. Subjective pulsatile tinnitus of right ear 9918830312 418033 H93.A1 refer for MRI brain and IAC's w/wo contrast for evaluation in unilateral subjective pulsatile tinnitus ongoing for months. [id number] BEN Mckeon [facility] [employer] [address] [place] [address] 2024 11:59:52 2024 12:49:25 Body mass index 40+ - severely obese 514010208 Z68.41 BMI is 43.5 Low back pain 643644460 M54.50 Start methocarba mol 750 mg 3 times a day for muscle relaxant and meloxicam 7.5 mg twice daily for anti-infla mmatory Lower urin arley tract symptoms 285642627 R39.9 Start Augmentin twice daily as directed for 7 days for underlying urinary tract symptoms Optic disc swelling 2484 96929 H47.10 Patient is still waiting for her March appointmen t with the neuro ophthalmol ogist at [facility] Obesity 453840651 E66.8 discussed healthy diet, exercise, controllin g carbohydra stephanie and added sugars in the diet [id number] BEN Mckeon [facility] [employer] [address] [place] [address] 08/04/2024 11:53:06 08/04/2024 14:30:33 Benign intracranial hypertension 28727358 G93.2 Patient is following with a specialist see consultati on note. She is now taking acetazolam chuckie ER 500 mg 2 capsules twice daily Hypothyroidism 70842787 E03.9 We will take over management of routine hypothyroi dism. Patient is taking levothyrox ine 88 mcg daily. She is due for updated thyroid function testing. Long-term drug therapy 588582389 Z79.899 labs reviewed from September 2023, a1c 5.5%, thyroid stable. vitamin D stable. LDL 116. Obesity 180222978 E66.9 discussed healthy diet, exercise, controllin g carbohydra stephanie and added sugars in the diet Undifferen tiated connective tissue disease 262591231 M35.1 following with Rheumatolo gy and on hydroxychl oroquine therapy. 200 mg 2 tablets daily Dysuria 41248183 R30.0 Patient does report some mild dysuria so we will include a urinalysis with culture on her labs Goiter 6578851 E04.9 History of goiter discussed. We will send for an updated thyroid ultrasound to evaluate anatomy of the thyroid Polycystic ovary syndrome 988934660 E28.2 stable. hx reported Insulin resistance 67505 5000 E88.819 Fasting insulin and A1c levels are due Migraine 62036241 G43.90 9 As far as migraine therapy is concerned she is overall stable. She does take rizatripta n 10 mg on an as-needed basis as directed Cholesterol screening 27 3119568 Z13.220 Fasting lipid panel is due [id number] BEN Mckeon [facility] [address] [place] [address] 09/19/2024 11:20:43 09/19/2024 12:13:34 Benign intracranial hypertension 59785045 G93.2 Patient is following with a specialist see consultati on note. She is now taking acetazolam chuckie ER 500 mg 2 capsules twice daily Hypothyroidism 85272081 E03.9 We will take over management of routine hypothyroi dism. Patient is taking levothyrox ine 88 mcg daily. Next labs are due in January Goiter 9535724 E04.9 Recent thyroid ultrasound is stable with no acute concerns Undifferen tiated connective tissue disease 662195745 M35.1 following with Rheumatolo gy and on hydroxychl oroquine therapy. 200 mg 2 tablets daily Polycystic ovary syndrome 229878577 E28.2 stable. hx reported Insulin resistance 23658 5000 E88.819 History noted, diet managed in stable Migraine 55219371 G43.90 9 As far as migraine therapy is concerned she is overall stable. She does take rizatripta n 10 mg on an as-needed basis as directed Obesity 844040770 E66.9 discussed healthy diet, exercise, controllin g carbohydra stephanie and added sugars in the diet Long-term drug therapy 425712160 Z79.899 Labs are up-to-date Body mass index 30+ - obesity 763509667 Z68.38 BMI 38.9 Seasonal a ffective disorder 927003115 F33.9 Trial of sertraline 25 mg daily for seasonal affective disorder that was especially involved this season. Both anxiety and depression symptoms. Health Concerns Section Related Observation LastModified by Organization Detai ls LastModified Time None Recorded Concern Status LastModified by Organization Details LastModified Time None Recorded Advance Directives Directive Y: Payers Encounter Date Sequence Insurance Name Policy Number Policy Johnson Covered Member ID Johnson Member ID Guarantor Name 01/31/2024 1 [facility] Jacinto [id number] Tariq Casey 2024 1 [facility] Jacinto [id number] Tariqlizz Casey 08/04/2024 1 [facility] Jacinto [id number] Tariq Jacinto 09/19/2024 1 [facility] Jacinto [id number] Tariqlizz Casey Notes Date Note Type Note Provider Name and Address Organization Details Recorded Time 01/31/20 text/htm l HeadacheReported bypatient.Notes:long standing hx- takes rizatriptan 10mg PRN use and 600mg ibuprofen does the trick. Frequency 2 to 3 per month.ThyroidReported bypatient.Notes:Follows with Dr. Daniela Gallo for underactive thyroid. stable on levothyroxine 88mcg daily. Hx of ? Mixed connective disorder ? lupus. DS-DnA always positive but SANDOVAL varies from positive to negative. follows with Sally Patterson . Takes hydroxychloroquine 200mg two daily. Hx of prediabetes in the past with metformin use.PCOS dx also present. Pt reports pulsatile tinnitus right ear. Poor short term memory also reported. c/o increase in headaches. not severe but more headaches. BEN Mckeon Attn: Accounting, [address] [place], [address], [place] [facility] 02/16/2024 13:00:49 03/23/20 text/htm l Back PainReported bypatient.Location:pain radiating to the buttocks Quality:sharp;dull Severity:worsening;severe (8-10) Duration:acute Alleviating Factors:rest Aggravating Factors:movement/positioning;twi sting;flexing back;extending back Associated Symptoms:no fever; no weak limbs; no numbness of the legs/feet; no tingling; no incontinence; no shortness of breath; She feels that she also has a little bit of increase in urinary symptoms with a little bit of hesitancy and mild dysuria BEN Mckeon Attn: Accounting, [address] [place], [address], [facility] 03/27/2024 10:41:28 08/04/19 25 text/htm l HeadacheReported bypatient.Notes:long standing hx- takes rizatriptan 10mg PRN use and 600mg ibuprofen does the trick. Frequency 2 to 3 per month.ThyroidReported bypatient.Notes:Follows with Dr. Daniela Gallo for underactive thyroid. stable on levothyroxine 88mcg daily. Patient is interested in transferring her care to the PCP for management of her hypothyroidism and goiter. Hx of ? Mixed connective disorder ? lupus. DS-DnA always positive but SANDOVAL varies from positive to negative. follows with Sally Patterson . Takes hydroxychloroquine 200mg two daily. Hx of prediabetes in the past with metformin use.PCOS dx also present. Patient has benign intracranial hypertension is falling with specialists routinely. Her acetazolamide has been increased recently to a double dose. BEN Mckeon Attn: Accounting, [address] [place], [address], [facility] 08/07/2024 10:27:55 09/19/19 25 text/htm l Anxiety/DepressionReported bypatient.Quality:symptoms worse in the evening;symptoms worse during the day;symptoms are seasonal;mood worse;increased anxiety Severity:denies suicidal ideations; able to maintain relationships; does not interfere with activities of daily living Duration:cannot identify; symptoms lasting over 2 weeks Onset/Timing:still present Context:no major life stressors Modifying Factors:counselling; social support Associated Symptoms:denies homicidal ideations; no shortness of breath; no crying spells; appetite good; energy good; maintaining functionalityHeadacheReported bypatient.Notes:long standing hx- takes rizatriptan 10mg PRN use and 600mg ibuprofen does the trick. Frequency 2 to 3 per month.ThyroidReported bypatient.Notes:Followed with Dr. Daniela Gallo for underactive thyroid. stable on levothyroxine 88mcg daily. Patient is interested in transferring her care to the PCP for management of her hypothyroidism and goiter. Hx of ? Mixed connective disorder ? lupus. DS-DnA always positive but SANDOVAL varies from positive to negative. follows with Sally Patterson . Takes hydroxychloroquine 200mg two daily. Hx of prediabetes in the past with metformin use.PCOS dx also present. Patient has benign intracranial hypertension is falling with specialists routinely. Her acetazolamide has been increased recently to a double dose. BEN Mckeon Attn: Accounting, [address] [place], [address], [facility] 09/20/2024 00:45:39 OBGyn Episode No OBEpisode recorded.
== END 2024-11-16 13:17 | disposition home or self-care (01) ==
LOC: ANHSURGERY 13:20
PROVIDERS: PCP Physician Assistant; Visit Provider Obstetrics & Gynecology
DX: R32 Unspecified urinary incontinence (principal)
CPT/HCPCS: 36415; 86850; 86900; 86901

== ENCOUNTER 2024-11-24 01:45 | Day surgery (SDC) | payer OTHER, SELFPAY ==
[2024-11-14 10:18] VITALS: BMI 38.3
--- NOTE | 2024-11-14 10:19 | PC.NURSE ---
Report to the Outpatient Waiting Room, entrance under the green pavilion located off [facility], at time _0600_ on date _[id number]_. Planned Procedure Time: _0730_.? Time changes happen often and if your time is changed the preop area will call you the afternoon before. - You and your visitor will be asked to self-screen and do not enter if you have any COVID symptoms. Please call surgeon if you need to reschedule. - A mask is optional within the hospital at this time. Patients may have clear liquids (water, carbonated beverages, clear teas, apple juice) until 3 hours prior to surgery with a maximum of 20 ounces. - No food from midnight until time of surgery and no smoking, or chewing tobacco (or any form of nicotine). No chewing gum, candy or mints. Take only the following medications with a SIP of water on the morning of surgery: ___Levothyroxine____ DO NOT STOP ANY OF YOUR OTHER PRESCRIPTION MEDICATIONS PRIOR TO SURGERY EXCEPT THE FOLLOWING Hold all vitamins and supplements for 3 days per anesthesiologist. Medications to discontinue per physician Tirzepatide___ Date to take last dose___Holding took last dose [id number] Please no make-up, nail indian, hairspray, perfume, deodorant, or body powder the day of surgery.? No jewelry (including any body piercings) or valuables the day of surgery, leave them at home.? Please take a shower or bath the night before, or the morning of, surgery with an antibacterial soap.? Wear comfortable, loose fitting clothing.? - Jewelry must be removed prior to entering the operating room.? Rings and piercings that are not removed may be cut off. - The hospital will not accept responsibility for valuables.? - Please leave all valuables, including medications, at home the day of surgery. If you are going home after surgery, a licensed transit bus driver must drive you home.? - NO public transportation without another adult if you receive anesthesia. - We recommend that an adult stay with you for 24 hours following discharge. - We also recommend that you do not drive, make important decision, drink alcoholic beverages, or take any drugs that were not prescribed by your health care provider for at least 24 hours after your discharge time. Follow any additional instructions given to you from your surgeon. Telephone instructions given to __Robbielizz__and asked if any additional questions and then verbalized understanding. Patient advised to call surgeon office or pre surgery nurse liaison [phone] if any additional questions.
--- NOTE | 2024-11-21 11:36 | P.HP_ITS ---
H&P: HPI History of Present Illness Date/Time: 11/21/24 11:36 Chief Complaint: Stress urinary incontinence Narrative: Is a 39-year-old status post hysterectomy admitted for tension-free vaginal tape. She loses urine with coughing laughing sneezing and finds is socially acceptable. She has attempted Kegel exercises with no avail risks and benefits of procedure reviewed including but not exclusive of , aspiration pneumonia, bleeding, transfusion, perforation injury to bowel, bladder, ureters, or other internal organs with need for open laparotomy. The need for prolonged catheterization etc. and the risks of mesh were reviewed she. She had all questions answered. She asked to proceed Review of Systems Constitutional: Constitutional: Denies chills, Denies fatigue, Denies fever(s) and Denies weakness ENT: Denies dizziness, Denies epistaxis and Denies nasal congestion Respiratory: Respiratory: Denies cough and Denies wheezing Gastrointestinal: Gastrointestinal: Denies diarrhea, Denies nausea and Denies vomiting Musculoskeletal: Musculoskeletal: Reports arthralgias, Denies joint swelling and Denies muscle cramps Comments: Pain to lateral aspect of right foot Neurologic: Denies vertigo, Denies dizziness, Denies syncope and Denies headache(s) [facility] Past Medical History Medical History Anemia UTI (urinary tract infection) Migraines PCOS (polycystic ovarian syndrome) Surgical History Surgical History Myringotomy tube(s) status Hx of section Hx of tonsillectomy Family History Family History Mother Hypertension Diabetes mellitus Father Kidney stone History of nephrectomy Social History Social History Smoking status: Never smoker Alcohol intake: current Alcohol use details: 2 DRINKS PER MONTH Substance use: never Substance use type: marijuana Other substance usage details: Edible every 1 or 2 months. Living arrangements: with family Gender identity (if verbalized by the patient): Female Spiritual care concerns: No Agree to blood products: Yes Meds Home Medications and Allergies Home Medications ?Medication ?Instructions ?Recorded ?Confirmed ?Type hydroxychloroquine 200 mg tablet 200 mg PO DAILY 04/23/21 11/14/24 History rizatriptan 10 mg disintegrating 10 mg PO DAILY PRN migraine 04/23/21 11/14/24 History tablet ondansetron HCl 4 mg tablet 4 mg PO TID PRN nausea and 04/24/23 11/14/24 Rx vomiting #10 tabs acetazolamide 500 mg 1,000 mg PO Q12H 11/14/24 11/14/24 History capsule,extended release levothyroxine 88 mcg tablet 88 mcg PO DAILY 11/14/24 11/14/24 History tirzepatide (weight loss) 10 10 mg subcut WEEKLY 11/14/24 11/14/24 History mg/0.5 mL subcutaneous pen injector (Zepbound) Allergies Allergy/AdvReac Type Severity Reaction Status Date / Time No Known Allergies Allergy Verified 11/14/24 10:06 Exam Const: General: cooperative, healthy appearing and comfortable Nutritional Appearance: overweight Orientation/consciousness: oriented to person, oriented to place and oriented to time HENMT: Head: normal to inspection Resp: Effort & Inspection: normal respiratory effort Cardio: Rate: regular rate Rhythm: regular rhythm Heart sounds: S1 normal heart sound present and S2 normal heart sound present GI: Inspection: normal to inspection : External Female Exam: normal external appearance Speculum Exam - Vagina: normal appearance of the vagina and other (Urethra active with Valsalva maneuver) Speculum Exam - Cervix: Cervix absent Bimanual exam- vagina & uterus: uterus absent Bimanual Exam- Adnexa, other: normal adnexae Assessment and Plan Assessment and plan (1) Stress incontinence: Code(s): N39.3 - Stress incontinence (female) (male) Status: Acute Plan Proceed with tension-free vaginal tape and cystoscopy
[2024-11-24] VITALS (10 sets, daily range): BP systolic 97–115; BP diastolic 59–75; PULSE 52–86; RESP 14–20; TEMP 36.7–36.8; O2SAT 95–100; BMI 38.5
--- NOTE | 2024-11-24 06:25 | WPDHPUPDATE1 ---
History and Physical Update Update Date/Time: 11/24/24 06:25 History and Physical has been reviewed, including an updated exam of the patient. There are NO changes in the patient's condition. Risks, benefits, and alternatives have been discussed and questions answered. Patient agrees to proceed with procedure.
[2024-11-24] MEDS: LACTATED RINGERS 1,000 ML 30 ML IV CONT ×2 (07:10→09:15)
--- NOTE | 2024-11-24 07:16 | WPDANESEPPF ---
Anes - Initial Pre Proc Eval Procedure: Operation Date: 11/24/24 08:30 Proposed Procedures p Tension Free Vaginal Taping - Michael Pereira MD Date/Time: 11/24/24 07:16 Surgeon: Michael Pereira MD Pre Op Diagnosis: Sudden Urinary Incont Patient Data Age: 39 Gender: F Height: 1.65 m Weight: 104.5 kg Allergies Allergy/AdvReac Type Severity Reaction Status Date / Time No Known Allergies Allergy Verified 11/14/24 10:06 Home Medications ?Medication ?Instructions ?Recorded ?Confirmed ?Type hydroxychloroquine 200 mg tablet 200 mg PO DAILY 04/23/21 11/14/24 History rizatriptan 10 mg disintegrating 10 mg PO DAILY PRN migraine 04/23/21 11/14/24 History tablet ondansetron HCl 4 mg tablet 4 mg PO TID PRN nausea and 04/24/23 11/14/24 Rx vomiting #10 tabs acetazolamide 500 mg 1,000 mg PO Q12H 11/14/24 11/14/24 History capsule,extended release levothyroxine 88 mcg tablet 88 mcg PO DAILY 11/14/24 11/14/24 History tirzepatide (weight loss) 10 10 mg subcut WEEKLY 11/14/24 11/14/24 History mg/0.5 mL subcutaneous pen injector (Zepbound) hydrocodone 5 mg-acetaminophen 325 1 tablet PO Q4H PRN pain #20 tabs 11/24/24 Rx mg tablet Patient hx anesthesia problems: none Family hx anesthesia problems: none Results Review: All pre-operative results and documents have been reviewed as part of the pre-operative evaluation. [facility] Past Medical History Medical History (Updated 11/23/24 @ 16:17 by Harrison Franz DO) Hyperthyroidism SLE (systemic lupus erythematosus related syndrome) Idiopathic intracranial hypertension Anemia UTI (urinary tract infection) Migraines PCOS (polycystic ovarian syndrome) Surgical History Surgical History (Updated 11/23/24 @ 16:17 by Harrison Franz DO) History of hysterectomy Myringotomy tube(s) status Hx of section Hx of tonsillectomy Family History Family History Mother Hypertension Diabetes mellitus Father Kidney stone History of nephrectomy Social History Social History Smoking status: Never smoker Alcohol intake: current Alcohol use details: 2 DRINKS PER MONTH Substance use: never Substance use type: marijuana Other substance usage details: Edible every 1 or 2 months. Living arrangements: with family Gender identity (if verbalized by the patient): Female Spiritual care concerns: No Agree to blood products: Yes Anes - Eval Final PreProcedure Day of Procedure 11/24/24 07:16 Patient weight: obese Heart: regular rate and rhythm Lungs: clear to auscultation Airway: Mallampati scale class III Neurological: alert and oriented Last oral intake: >/= 8 hours ASA classification: III Emergent: no Anesthetic plan: proceed Anesthesia type and monitoring: general LMA and standard monitoring Results Review: All pre-operative results and documents have been reviewed as part of the pre-operative evaluation. Informed Consent: The patient's anesthetic plan and its attendant risks and benefits were discussed with the patient/family/POA. Questions were solicited and answers provided to the satisfaction of the patient/family/POA.
[2024-11-24] MEDS: ceFAZolin 2 GM/D5W 50 ML 2 GM/50 ML BAG IVPB (08:37)
--- NOTE | 2024-11-24 09:12 | W.PM.PROC2 ---
Procedure Note - Detailed Date of Procedure 11/24/24 Pre-op Diagnosis Stress Urinary Incont Post-op Diagnosis Same Procedure Performed Tension-free vaginal tape with cystoscopy Surgeon Michael Pereira MD Anesthesia General Indications 39-year-old female with stress urinary incontinence Findings Hyper reactive urethra Description of Procedure Patient was prepped draped sterile fashion dorsal position under excellent anesthesia weighted speculum placed in posterior fornix of. An 18 Italian catheter placed in bladder drained clear urine. Suburethral incision made midportion bladder space is by blunt dissection. The urethral catheter guide was placed in the urethra retracted laterally. The left retropubic bladder space entered by at a 45 degree angle past the pubic bone and up through the fascia skin at30?. In similar fashion after retracting urethra to the opposite side the right retropubic bladder space entered that a 45 degree angle upto30? to the fashion skin. The catheter was removed and a 30degree cystoscope inserted. No injury seen. The tension-free tape was then pulled up to the tightness of an open pee on clamped and sat that nicely. The plastic was removed and the tape cut at the mons pubis area. The vagina closed with continuous running 0 chromic. Blood loss was estimated at25cc. All sponge, needle, instrument counts were correct. There were no immediate complications the suprapubic area was glued Estimated Blood Loss 25 Drains No Packing No Pathology None sent Complications No immediate complications Condition Stable Disposition PACU
[2024-11-24] MEDS: fentaNYL CITRATE INJ (*CRX) 100 MCG/2 ML VIAL 25 MCG IV PUSH ×4 (09:24→09:57)
[2024-11-24] MEDS: oxyCODONE HCL (*CRX) 5 MG TAB IR PO (10:34)
== END 2024-11-24 12:04 | disposition home or self-care (01) ==
PROVIDERS: PCP Physician Assistant; Visit Provider Obstetrics & Gynecology
PROC: 0TSD0ZZ Reposition Urethra, Open Approach (ICD-10-PCS; CPT 57288; principal; 2024-11-24 08:30)
DX: N39.3 Stress incontinence (female) (male) (principal); E66.9 Obesity, unspecified; Z68.38 Body mass index [BMI] 38.0-38.9, adult
CPT/HCPCS: 57288; A9270; C1771; J0690; J1100; J2003; J2250; J2405; J2704; J3010; J7030; J7120

== ENCOUNTER 2024-12-15 01:54 | Day surgery (SDC) | payer OTHER, SELFPAY ==
[2024-12-07 09:16] VITALS: BMI 37.4
--- NOTE | 2024-12-07 09:24 | PC.NURSE ---
Report to the Outpatient Waiting Room, entrance under the green pavilion located off [facility], at time 0900_ on date _12/15/24__. Planned Procedure Time: __1100.? Time changes happen often and if your time is changed the preop area will call you the afternoon before. - You and your visitor will be asked to self-screen and do not enter if you have any COVID symptoms. Please call surgeon if you need to reschedule. - A mask is optional within the hospital at this time. Patients may have clear liquids (water, carbonated beverages, clear teas, apple juice) until 3 hours prior to surgery with a maximum of 20 ounces. - No food from midnight until time of surgery and no smoking, or chewing tobacco (or any form of nicotine). No chewing gum, candy or mints. - Infants may have breast milk until 4 hours before surgery, formula 6 hours prior to surgery. - Children will be allowed to drink immediately following surgery.? If applicable, please bring a bottle or sippy cup to assist with drinking. Juice, water, soda, and popsicles are readily available.? For infants on formula, please bring formula the day of surgery.? Pacifiers are allowed. Take only the following medications with a SIP of water on the morning of surgery: LEVOTHYROXINE DO NOT STOP ANY OF YOUR OTHER PRESCRIPTION MEDICATIONS PRIOR TO SURGERY EXCEPT THE FOLLOWING Hold all vitamins and supplements for 3 days per anesthesiologist. Medications to discontinue per physician Date to take last dose Please no make-up, nail turkish, hairspray, perfume, deodorant, or body powder the day of surgery.? No jewelry (including any body piercings) or valuables the day of surgery, leave them at home.? Please take a shower or bath the night before, or the morning of, surgery with an antibacterial soap.? Wear comfortable, loose fitting clothing.? Children are encouraged to wear pajamas. - Jewelry must be removed prior to entering the operating room.? Rings and piercings that are not removed may be cut off. - The hospital will not accept responsibility for valuables.? - Please leave all valuables, including medications, at home the day of surgery. If you are going home after surgery, a licensed lunch truck driver must drive you home.? - NO public transportation without another adult if you receive anesthesia. - We recommend that an adult stay with you for 24 hours following discharge. - We also recommend that you do not drive, make important decision, drink alcoholic beverages, or take any drugs that were not prescribed by your health care provider for at least 24 hours after your discharge time. For Pediatric surgeries, we recommend two adults accompany the child home. Follow any additional instructions given to you from your surgeon. Telephone instructions given to PATIENT _and asked if any additional questions and then verbalized understanding. Patient advised to call surgeon office or pre surgery nurse liaison [phone] if any additional questions.
--- OUTSIDE RECORDS SUMMARY | 2024-12-15 01:56 | XMS_ITS | Data Portability ---
Author Organization [facility] [place] Address [address] [address] Care Team Providers Care Plug Grower Name Role Phone LAURA SHAH Primary Care Provider [phone] Assessment Encounter Date Assessment Date Assessment LastModified by Organization Details LastModified Time 01/31/2024 01/31/2024 Pap smear UTD pr ior to [facility] that was completed for large fibroids. Ovaries [...] [email or web address] [facility], [address], [place], [address], 09/19/2024 12:11:38 T3, free, serum or plasma 2024 025 [email or web address] [facility], [address], [place], [address], 09/19/2024 12:11:38 urinalysi s, complete 2024 025 [facility], [address], [place], [address], 08/09/2024 07:10:50 culture, urine 2024 025 [facility], [address], [place], [address], 08/10/2024 07:10:09 CMP, serum or plasma 2024 025 [facility], [address], [place], [address], 08/09/2024 07:10:47 CBC w/ auto diff 2024 025 [facility], [address], [place], [address], 08/09/2024 07:10:53 cobalamin and folate panel, serum 2024 025 [facility], [address], [place], [address], 08/09/2024 07:10:48 insulin, serum 2024 025 [facility], [address], [place], [address], 08/09/2024 07:10:52 HbA1c (hemoglob in A1c), blood 2024 025 [facility], [address], [place], [address], 08/09/2024 07:10:49 lipid panel, serum 2024 025 [facility], [address], [place], [address], 08/09/2024 07:10:45 TSH + free T4, serum 2024 025 [facility], [address], [place], [address], 08/09/2024 07:10:46 T3, free, serum or plasma 2024 025 [facility], [address], [place], [address], 08/09/2024 07:10:54 Referral None recorded. Procedures None recorded. Surgeries None recorded. Imaging US, thyroid 2024 025 [facility], [address], [place], [address], 08/09/2024 11:27:37 MRI, brain + internal auditory canal, w/wo contrast 2023 024 [facility], [address], [place], [address], 02/16/2024 07:33:56 Medication Orders sertralin e 25 mg tablet 2024 025 [id number], [address], [place], [id number], 09/19/2024 12:11:49 methocarb seven 750 mg tablet 2023 025 [facility] #[id number], [address], [place], [id number], 08/04/2024 11:50:08 meloxicam 7.5 mg tablet 2023 025 [facility] #[id number], [address], [place], [id number], 08/04/2024 11:49:59 amoxicill in 875 mg-potass ium clavulana te 125 mg tablet [email or web address] [facility]89055, [address], [place], [place], [id number], 07/04/2024 09:08:30 Patient TargetsNo targets recorded. Patient Instructions Encounter Date Encounter Id Patient Instructions Last Modified By Organization Details Last Modified Time 2024 [id number] A healthy lifestyle: care instructions Not available 03/27/2024 10:41:15 08/04/2024 [id number] A healthy lifestyle: care instructions Not available 08/07/2024 10:27:07 09/19/2024 [id number] A healthy lifestyle: care instructions Not available 09/19/2024 12:11:38 Reason for Referral None Reported. Results Created Date Observation Date Name Description Value Unit Range Abnormal Flag Note LastModifiedBy Organization Detail LastModifiedTime 08/08/1908/09/2024 LIPID PANEL W/ CHOL/ HDL RATIO cholesterol, total 200 mg/dL 100-19 9 above high normal Not Available [facility] ([facility]) [address] [place], [address], 08/09/2024 07:10:45 08/08/1908/09/2024 LIPID PANEL W/ CHOL/ HDL RATIO triglyceride s 122 mg/dL 0-149 Not Available [facility] ([facility]) [address] [place], [address], 08/09/2024 07:10:45 08/08/1908/09/2024 LIPID PANEL W/ CHOL/ HDL RATIO HDL cholesterol 46 mg/dL >39 Not Available [facility] ([facility]) [address] [place], [address], 08/09/2024 07:10:45 08/08/1908/09/2024 LIPID PANEL W/ CHOL/ HDL RATIO VLDL cholesterol og 22 mg/dL 5-40 Not Available [facility] ([facility]) [address] [place], [address], 08/09/2024 07:10:45 08/08/19 25 08/09/2024 LIPID PANEL W/ CHOL/ HDL RATIO LDL chol calc ([facility]) 132 mg/dL 0-99 above high normal Not Available [facility] ([facility]) [address] [place], [address], 08/09/2024 07:10:45 08/08/19 25 08/09/2024 LIPID PANEL W/ CHOL/ HDL RATIO T. chol/HDL ratio 4.3 ratio 0.0-4. 4 T. Chol/ HDL Ratio Men Women 1/2 Avg.R isk 3.4 3.3 Avg.R isk 5.0 4.4 2X Avg.R isk 9.6 7.1 3X Avg.R isk 23.4 11.0 Not Available [facility] ([facility]) [address] [place], [address], 08/09/2024 07:10:45 08/08/19 25 08/09/2024 TSH+F REE T4 TSH 0.210 uIU/m L 0.450- 4.500 below low normal Not Available [facility] ([facility]) [address] [place], [address], 08/09/2024 07:10:46 08/08/19 25 08/09/2024 TSH+F REE T4 T4,free(dire ct) 1.34 NG/dL 0.82-1 .77 Not Available [facility] ([facility]) [address] [place], [address], 08/09/2024 07:10:46 08/08/19 25 08/09/2024 COMP. METAB OLIC PANEL (14) glucose 81 mg/dL 70-99 Not Available [facility] ([facility]) [address] [place], [address], 08/09/2024 07:10:47 08/08/19 25 08/09/2024 COMP. METAB OLIC PANEL (14) BUN 16 mg/dL 6-20 Not Available [facility] ([facility]) [address] [place], [address], 08/09/2024 07:10:47 08/08/19 25 08/09/2024 COMP. METAB OLIC PANEL (14) creatinine 0.87 mg/dL 0.57-1 .00 Not Available [facility] ([facility]) [address] [place], [address], 08/09/2024 07:10:47 08/08/19 25 08/09/2024 COMP. METAB OLIC PANEL (14) eGFR 87 mL/mi n/1.7 3 >59 Not Available [facility] ([facility]) [address] [place], [address], 08/09/2024 07:10:47 08/08/19 25 08/09/2024 COMP. METAB OLIC PANEL (14) BUN/creatini ne ratio 18 9-23 Not Available [facility] ([facility]) [address] [facility] [place], [address], 08/09/2024 07:10:47 08/08/19 25 08/09/2024 COMP. METAB OLIC PANEL (14) sodium 139 mmol/ L 134-14 4 Not Available [facility] ([facility]) [address] [facility] [place], [address], 08/09/2024 07:10:47 08/08/19 25 08/09/2024 COMP. METAB OLIC PANEL (14) potassium 4.2 mmol/ L 3.5-5. 2 Not Available [facility] ([facility]) [address] [facility] [place], [address], 08/09/2024 07:10:47 08/08/19 25 08/09/2024 COMP. METAB OLIC PANEL (14) chloride 109 mmol/ L 96-106 above high normal Not Available [facility] ([facility]) [address] [facility] [place], [address], 08/09/2024 07:10:47 08/08/19 25 08/09/2024 COMP. METAB OLIC PANEL (14) carbon dioxide, total 17 mmol/ L 20-29 below low normal Not Available [facility] ([facility]) [address] [facility], [place], [address], 08/09/2024 07:10:47 08/08/19 25 08/09/2024 COMP. METAB OLIC PANEL (14) calcium 9.7 mg/dL 8.7-10 .2 Not Available [facility] ([facility]) [address] [place], [address], 08/09/2024 07:10:47 08/08/19 25 08/09/2024 COMP. METAB OLIC PANEL (14) protein, total 7.1 g/dL 6.0-8. 5 Not Available [facility] ([facility]) [address] [facility] [place], [address], 08/09/2024 07:10:47 08/08/19 25 08/09/2024 COMP. METAB OLIC PANEL (14) albumin 4.5 g/dL 3.9-4. 9 Not Available [facility] ([facility]) [address] [facility] [place], [address], 08/09/2024 07:10:47 08/08/19 25 08/09/2024 COMP. METAB OLIC PANEL (14) globulin, total 2.6 g/dL 1.5-4. 5 Not Available [facility] ([facility]) [address] [facility] [place], [address], 08/09/2024 07:10:47 08/08/19 25 08/09/2024 COMP. METAB OLIC PANEL (14) bilirubin, total 0.3 mg/dL 0.0-1. 2 Not Available [facility] ([facility]) [address] [facility] [place], [address], 08/09/2024 07:10:47 08/08/19 25 08/09/2024 COMP. METAB OLIC PANEL (14) alkaline phosphatase 61 IU/L 44-121 Not Available [facility] ([facility]) [address] [facility], [place], [address], 08/09/2024 07:10:47 08/08/19 25 08/09/2024 COMP. METAB OLIC PANEL (14) AST (SGOT) 18 IU/L 0-40 Not Available [facility] ([facility]) [address] [facility], [place], [address], 08/09/2024 07:10:47 08/08/19 25 08/09/2024 COMP. METAB OLIC PANEL (14) ALT (SGPT) 17 IU/L 0-32 Not Available [facility] ([facility]) [address] [facility], [place], [address], 08/09/2024 07:10:47 08/08/19 25 08/09/2024 MICRO SCOPI C EXAMI NATIO N WBC 0-5 /hpf 0-5 Not Available [facility] ([facility]) [address] [facility], [place], [address], 08/09/2024 07:10:48 08/08/19 25 08/09/2024 MICRO SCOPI C EXAMI NATIO N RBC NONE SEEN /hpf 0-2 Not Available [facility] ([facility]) [address] [facility], [place], [address], 08/09/2024 07:10:48 08/08/19 25 08/09/2024 MICRO SCOPI C EXAMI NATIO N epithelial cells (non renal) 0-10 /hpf 0-10 Not Available [facility] ([facility]) [address] [facility], [place], [address], 08/09/2024 07:10:48 08/08/19 25 08/09/2024 MICRO SCOPI C EXAMI NATIO N casts NONE SEEN /lpf nonese en Not Available [facility] ([facility]) [address] [facility], [place], [address], 08/09/2024 07:10:48 08/08/19 25 08/09/2024 MICRO SCOPI C EXAMI NATIO N bacteria NONE SEEN nonese en/few Not Available [facility] ([facility]) [address] [facility], [place], [address], 08/09/2024 07:10:48 08/08/19 25 08/09/2024 VITAM IN B12 AND FOLAT E vitamin B12 >2000 pg/mL 232-12 45 above high normal Not Available [facility] ([facility]) [address] [facility], [place], [address], 08/09/2024 07:10:48 08/08/1908/09/2024 VITAM IN B12 AND FOLAT E folate (folic acid), serum 5.9 NG/mL >3.0 A serum folat e juve ntrat ion of less than 3.1 ng/mL is consi dered to repre sent clini og defic iency . Not Available [facility] ([facility]) [address] [facility], [place], [address], 08/09/2024 07:10:48 08/08/19 25 08/09/2024 HEMOG LOBIN A1C hemoglobin A1C 5.2 % 4.8-5. 6 Predi abete s: 5.7 - 6.4 Diabe stephanie: >6.4 Glyce nawaf contr ol for adult s with diabe stephanie: <7.0 Not Available [facility] ([facility]) [address] [facility], [place], [address], 08/09/2024 07:10:49 08/08/19 25 08/09/2024 URINA LYSIS , COMPL ETE specific gravity 1.007 1.005- 1.030 Not Available [facility] ([facility]) [address] [facility], [place], [address], 08/09/2024 07:10:50 08/08/19 25 08/09/2024 URINA LYSIS , COMPL ETE pH 6.0 5.0-7. 5 Not Available [facility] ([facility]) [address] [facility], [place], [address], 08/09/2024 07:10:50 08/08/19 25 08/09/2024 URINA LYSIS , COMPL ETE urine-color YELLOW yellow Not Available [facility] ([facility]) [address] [place], [address], 08/09/2024 07:10:50 08/08/19 25 08/09/2024 URINA LYSIS , COMPL ETE appearance CLEAR clear Not Available [facility] ([facility]) [address] [place], [address], 08/09/2024 07:10:50 08/08/19 25 08/09/2024 URINA LYSIS , COMPL ETE WBC esterase NEGATI VE negati ve Not Available [facility] ([facility]) [address] [place], [address], 08/09/2024 07:10:50 08/08/19 25 08/09/2024 URINA LYSIS , COMPL ETE protein NEGATI VE negati ve/tra ce Not Available [facility] ([facility]) [address] [place], [address], 08/09/2024 07:10:50 08/08/19 25 08/09/2024 URINA LYSIS , COMPL ETE glucose NEGATI VE negati ve Not Available [facility] ([facility]) [address] [place], [address], 08/09/2024 07:10:50 08/08/19 25 08/09/2024 URINA LYSIS , COMPL ETE ketones NEGATI VE negati ve Not Available [facility] ([facility]) [address] [place], [address], 08/09/2024 07:10:50 08/08/19 25 08/09/2024 URINA LYSIS , COMPL ETE occult blood NEGATI VE negati ve Not Available [facility] ([facility]) [address] [facility], [place], [address], 08/09/2024 07:10:50 08/08/19 25 08/09/2024 URINA LYSIS , COMPL ETE bilirubin NEGATI VE negati ve Not Available [facility] ([facility]) [address] [facility], [place], [address], 08/09/2024 07:10:50 08/08/19 25 08/09/2024 URINA LYSIS , COMPL ETE urobilinogen ,semi-qn 0.2 mg/dL 0.2-1. 0 Not Available [facility] ([facility]) [address] [facility], [place], [address], 08/09/2024 07:10:50 08/08/19 25 08/09/2024 URINA LYSIS , COMPL ETE nitrite, urine NEGATI VE negati ve Not Available [facility] ([facility]) [address] [facility], [place], [address], 08/09/2024 07:10:50 08/08/19 25 08/09/2024 URINA LYSIS , COMPL ETE microscopic examination COMMEN T Micro scopi c follo ws if indic ated. Not Available [facility] ([facility]) [address] [facility], [place], [address], 08/09/2024 07:10:50 08/08/19 25 08/09/2024 URINA LYSIS , COMPL ETE microscopic examination SEE BELOW: Micro scopi c was indic ated and was perfo rmed. Not Available [facility] ([facility]) [address] [facility], [place], [address], 08/09/2024 07:10:50 08/08/19 08/09/2024 INSUL IN insulin 10.3 uIU/m L 2.6-24 .9 Not Available [facility] ([facility]) [address] [facility], [place], [address], 08/09/2024 07:10:51 08/08/19 25 08/08/2024 CBC WITH DIFFE RENTI AL/PL ATELE T WBC 5.8 x10e3 /uL 3.4-10 .8 Not Available [facility] ([facility]) [address] [facility], [place], [address], 08/09/2024 07:10:52 08/08/1908/08/2024 CBC WITH DIFFE RENTI AL/PL ATELE T RBC 5.28 x10e6 /uL 3.77-5 .28 Not Available [facility] ([facility]) [address] [facility], [place], [address], 08/09/2024 07:10:52 08/08/1908/08/2024 CBC WITH DIFFE RENTI AL/PL ATELE T hemoglobin 14.8 g/dL 11.1-1 5.9 Not Available [facility] ([facility]) [address] [facility], [place], [address], 08/09/2024 07:10:52 08/08/1908/08/2024 CBC WITH DIFFE RENTI AL/PL ATELE T hematocrit 45.5 % 34.0-4 6.6 Not Available [facility] ([facility]) [address] [facility], [place], [address], 08/09/2024 07:10:52 08/08/1908/08/2024 CBC WITH DIFFE RENTI AL/PL ATELE T MCV 86 fL 79-97 Not Available [facility] ([facility]) [address] [place], [address], 08/09/2024 07:10:52 08/08/19 25 08/08/2024 CBC WITH DIFFE RENTI AL/PL ATELE T MCH 28.0 pg 26.6-3 3.0 Not Available [facility] ([facility]) [address] [facility], [place], [address], 08/09/2024 07:10:52 08/08/19 25 08/08/2024 CBC WITH DIFFE RENTI AL/PL ATELE T MCHC 32.5 g/dL 31.5-3 5.7 Not Available [facility] ([facility]) [address] [facility], [place], [address], 08/09/2024 07:10:52 08/08/19 25 08/08/2024 CBC WITH DIFFE RENTI AL/PL ATELE T RDW 13.0 % 11.7-1 5.4 Not Available [facility] ([facility]) [address] [facility], [place], [address], 08/09/2024 07:10:52 08/08/19 25 08/08/2024 CBC WITH DIFFE RENTI AL/PL ATELE T platelets 215 x10e3 /uL 150-45 0 Not Available [facility] ([facility]) [address] [facility], [place], [address], 08/09/2024 07:10:52 08/08/19 25 08/08/2024 CBC WITH DIFFE RENTI AL/PL ATELE T neutrophils 62 % notest ab. Not Available [facility] ([facility]) [address] [facility], [place], [address], 08/09/2024 07:10:52 08/08/19 25 08/08/2024 CBC WITH DIFFE RENTI AL/PL ATELE T lymphs 28 % notest ab. Not Available [facility] ([facility]) [address] [facility], [place], [address], 08/09/2024 07:10:52 08/08/19 25 08/08/2024 CBC WITH DIFFE RENTI AL/PL ATELE T monocytes 8 % notest ab. Not Available [facility] ([facility]) [address] [facility], [place], [address], 08/09/2024 07:10:52 08/08/19 25 08/08/2024 CBC WITH DIFFE RENTI AL/PL ATELE T eos 1 % notest ab. Not Available [facility] ([facility]) [address] [facility], [place], [address], 08/09/2024 07:10:52 08/08/19 25 08/08/2024 CBC WITH DIFFE RENTI AL/PL ATELE T basos 1 % notest ab. Not Available [facility] ([facility]) [address] [facility], [place], [address], 08/09/2024 07:10:52 08/08/19 25 08/08/2024 CBC WITH DIFFE RENTI AL/PL ATELE T neutrophils (absolute) 3.6 x10e3 /uL 1.4-7. 0 Not Available [facility] ([facility]) [address] [facility], [place], [address], 08/09/2024 07:10:52 08/08/19 25 08/08/2024 CBC WITH DIFFE RENTI AL/PL ATELE T lymphs (absolute) 1.6 x10e3 /uL 0.7-3. 1 Not Available [facility] ([facility]) [address] [facility], [place], [address], 08/09/2024 07:10:52 08/08/19 25 08/08/2024 CBC WITH DIFFE RENTI AL/PL ATELE T monocytes(ab solute) 0.5 x10e3 /uL 0.1-0. 9 Not Available [facility] ([facility]) [address] [facility], [place], [address], 08/09/2024 07:10:52 08/08/19 25 08/08/2024 CBC WITH DIFFE RENTI AL/PL ATELE T eos (absolute) 0.1 x10e3 /uL 0.0-0. 4 Not Available [facility] ([facility]) [address] [place], [address], 08/09/2024 07:10:52 08/08/19 25 08/08/2024 CBC WITH DIFFE RENTI AL/PL ATELE T baso (absolute) 0.1 x10e3 /uL 0.0-0. 2 Not Available [facility] ([facility]) [address] [place], [address], 08/09/2024 07:10:52 08/08/1908/08/2024 CBC WITH DIFFE RENTI AL/PL ATELE T immature granulocytes 0 % notest ab. Not Available [facility] ([facility]) [address] [place], [address], 08/09/2024 07:10:52 08/08/19 25 08/08/2024 CBC WITH DIFFE RENTI AL/PL ATELE T immature grans (abs) 0.0 x10e3 /uL 0.0-0. 1 Not Available [facility] ([facility]) [address] [place], [address], 08/09/2024 07:10:52 08/08/1908/09/2024 TRIIO DOTHY LENCHO E (T3), FREE triiodothyro nine (T3), free 2.8 pg/mL 2.0-4. 4 Not Available [facility] ([facility]) [address] [place], [address], 08/09/2024 07:10:54 08/08/1908/09/2024 URINE CULTU RE, ROUTI NE urine culture, routine FINAL REPORT Not Available [facility] ([facility]) [address] [place], [address], 08/10/2024 07:10:09 08/08/19 25 08/09/2024 URINE CULTU RE, ROUTI NE result 1 COMMEN T Cultu re shows less than 10,00 0 colon y formi ng units of bacte debby per parag liter of urine . This colon y count is not gener ally consi dered to be clini wilbur signi ficlg t. Not Available [facility] ([facility]) [address] [facility], [place], [address], 08/10/2024 07:10:09 02/16/20 24 02/14/2024 MRI, brain + inter nal audit ory canal , w/wo contr ast No observ ation record ed. [facility] [address], [place], [address], 02/16/2024 12:55:03 04/04/20 24 04/03/2024 XR, lumbo sacra l spine , 2 or 3 view No observ ation record ed. [facility] [address], [place], [address], 04/07/2024 15:26:31 08/09/19 25 08/09/2024 US, thyro id No observ ation record ed. [email or web address] [facility] [address], [place], [address], 09/19/2024 11:41:20 Result Notes None recorded. Problems Name Problem SNOMED Code Status Onset Date Resolution Date Notes Provider Name and Address Organization Details Recorded Time Body mass index 40+ - severely obese 684783700 Active 2023 BEN Mckeon Attn: Ainsley jain,[address] [facility], [place], [address], [facility] 4 10:48:46 Undifferent iated connective tissue disease 955475071 Active 2023 BEN Mckeon Attn: Ainsley g,[address] [facility], [place], [address], [facility] 4 10:54:42 Headache 68363361 Active 2023 BEN Mckeon Attn: Ainsley jain,[address] [place], [address], [place] [facility] 4 10:54:43 Hypothyroid ism 65419151 Active 2023 BEN Mckeon Attn: Ainsley jain,[address] [place], [address], [place] [facility] 4 10:55:06 Long-term drug therapy Active 2023 BEN Mckeon Attn: Ainsley jain,[address] [place], [address], [place] [facility] 4 10:55:15 Hyperlipide nasir 06667578 Active 2023 BEN Mckeon Attn: Ainsley jain,[address] [place], [address], [place] [facility] 4 11:04:22 Polycystic ovary syndrome 633346794 Active 2023 BEN Mckeon Attn: Ainsley jain,[address] [place], [address], [place] [facility] 4 11:09:50 Subjective pulsatile tinnitus of right ear [id number] 108 Active 2023 BEN Mckeon Attn: Ainsley jain,[address] [place], [address], [place] [facility] 4 13:00:20 Low back pain 006992956 Active 2023 BEN Mckeon Attn: Ainsley g,[address] [place], [address], [place] [facility] 4 10:40:48 Optic disc swelling 828002118 Active 2023 BEN Mckeon Attn: Ainsley jain,[address] [place], [address], [place] [facility] 4 10:41:04 Obesity 530541797 Active 2023 BEN Mckeon Attn: Accountin g,[address] [facility], [place], [address], [place] [facility] 4 10:41:11 Goiter 5705699 Active 2024 BEN Mckeon Attn: Accountin g,[address] [facility], [place], [address], [place] [facility] 5 13:20:31 Benign intracrania l hypertensio n 03564310 Active 2024 BEN Mckeon Attn: Accountin g,[address] [facility], [place], [address], [place] [facility] 5 13:28:58 Insulin resistance 996566664 Active 2024 BEN Mckeon Attn: Accountin g,[address] [facility], [place], [address], [place] [facility] 5 13:29:04 Dysuria 98172474 Active 2024 BEN Mckeon Attn: Accountin g,[address] [place], [address], [place] [facility] 5 13:29:06 Migraine 80656762 Active 2024 BEN Mckeon Attn: Andreein g,[address] [facility], [place], [address], [place] [facility] 5 13:29:07 Body mass index 30+ - obesity 366346635 Active 2024 BEN Mckeon Attn: Accountin g,[address] [facility], [place], [address], [place] [facility] 5 11:46:36 Seasonal affective disorder [id number] Active 2024 BEN Mckeon Attn: Ainsley g,[address] [facility], [place], [address], [facility] 00:44:26 Problem Notes None recorded. Procedures Surgical History Date Name Laterality Status Provider Name and Address Organization Details Recorded Time 07/26/19 23 Total hysterectomy completed Paris Briscoe MA [facility] 01/31/2024 10:42:51 07/26/19 13 section completed Paris Briscoe MA [facility] 01/31/2024 10:43:02 07/26/18 95 Tonsillectomy completed Paris Briscoe MA [facility] 01/31/2024 10:42:41 Imaging Results Imaging Date Name Status LastModified by Organiz ation Details LastModified Time 02/14/2024 MRI, brain + internal auditory canal, w/wo contrast completed [facility] [address], [place], [address], 02/16/2024 12:55:03 04/03/2024 XR, lumbosacral spine, 2 or 3 view completed [facility] [address], [place], [address], 04/07/2024 15:26:31 08/09/2024 US, thyroid completed [email or web address] [address], [place], [address], 09/19/2024 11:41:20 Procedure Notes None recorded. Medical [...] BY MOUTH EVERY DAY IN THE EVENING 2024 active Not Available Not Available Not Avai lable zinc 50 mg tablet Take 1 tablet [...] Address Organization Details Last Updated DateTime 4 942453. 76 g 43.5 kg/m2 165.1 cm 70 /min 98 % 98 % 138 mm[Hg] 72 mm[Hg] Paris Briscoe MA [facility] 10:45:36 Date Recorded Respiratory rate Systolic blood pressure Diastolic blood pressure Provider Name and Address Organization Details Last Updated DateTime 01/31/2024 18 /min 122 mm[Hg] 80 mm[Hg] BEN Mckeon Attn: Accounting, [address] [place], [address], [facility] 01/31/2024 11:09:41 Date Recorded Body height Body mass index (BMI) Body weight Respiratory rate Oxygen saturation Oxygen saturation in Arterial blood by Pulse oximetry Heart rate Systolic blood pressure Diastolic blood pressure Provider Name and Address Organization Details Last Updated DateTime 4 165.1 cm 42.1 kg/m2 011976. 16 g 18 /min 97 % 97 % 80 /min 126 mm[Hg] 82 mm[Hg] Reinaldo Trivedi MA [facility] 12:14:13 Date Recorded Body height Body mass index (BMI) Body weight Oxygen saturation Oxygen saturation in Arterial blood by Pulse oximetry Heart rate Systolic blood pressure Diastolic blood pressure Provider Name and Address Organization Details Last Updated DateTime 165.1 cm 38.9 kg/m2 741939. 61 g 99 % 99 % 79 /min 126 mm[Hg] 82 mm[Hg] Reinaldo Trivedi MA [facility] 11:35:41 Date Recorded Respiratory rate Provider Name a ks Address Organization Details Last Updated DateTime 09/19/2024 16 /min BEN Mckeon Attn: Accounting,[address] [facility], [place], [address], [facility] 09/19/2024 12:13:04 Social History Question Answer Notes LastModified by Organizat ion Details LastModified Time Tobacco Smoking Status Never Smoker Paris Briscoe MA null, [facility] 01/31/2024 10:41:24 Do You Have An Advance Directive? Yes Information n ot available 01/31/2024 How Many Years Have You Consumed Alcohol? 10 Information not available 01/31/2024 Are You Blind Or Do You Have Difficulty Seeing? No Information n ot available 01/31/2024 What Is Your Level Of Caffeine Consumption? Occasional Information not available 01/31/2024 In The 14 Days Before Symptom Onset, Have You Had Close Contact With A Laboratory-confirm ed COVID-19 While That Case Was Ill? No Information n ot available 01/31/2024 In The 14 Days Before Symptom Onset, Have You Had Close Contact With A Person Who Is Under Investigation For COVID-19 While That Person Was Ill? No Information not available 01/31/2024 Have You Been To An Area Known To Be High Risk For COVID-19? No Information not available 01/31/2024 Are You Deaf Or Do You Have Serious Difficulty Hearing? No Information not available 01/31/2024 What Type Of Diet Are You Following? REGULAR Information n ot available 01/31/2024 Are There Any Guns Present [...] Yes Information not available 01/31/2024 Do You Use Sunscreen Routinely? Yes Information not available 01/31/2024 Has Tobacco Cessation Counseling Been Provided? No Information not available 01/31/2024 Sex: Female Functional Status Question Answer Note LastModified by Organizat ion Details LastModified Time Do you use any illicit or recreational drugs? No Information not available 01/31/2024 Do you or have you ever used any other forms of tobacco or nicotine? No Information not available 01/31/2024 What is your level of alcohol consumption? Occasional Information not available 01/31/2024 Are you currently employed? Yes Information not available 01/31/2024 Are you able to care for yourself? Yes Information not available 01/31/2024 What is your occupation? Self employed Information not available 01/31/2024 What is your exercise level? Heavy Information not available 01/31/2024 Mental Status Question Answer Note LastModified by Organization D etails LastModified Time Do you feel stressed (tense, restless, nervous, or anxious, or unable to sleep at night)? [id number] Information not available 01/31/2024 Family History Relationship Description Onset Age of this Age Resolved Age Notes LastModified by Organization Details LastModified Time Paternal Grandmother Malignant tumor of colon mebyma Not available 2023 10:40:27 Mother Diabetes mellitus mebyma Not available 2023 10:40:34 Mother Hypercholest erolemia mebyma Not available 2023 10:40:40 Mother Hypertensive disorder mebyma Not available 2023 10:40:45 Father Kidney disease mebyma Not available 2023 10:40:52 Father Malignant neoplasm of prostate mebyma Not available 2023 10:41:00 Medical History Condition Response Anxiety Disorder Y Acid Reflux (GERD) Y Thyroid Problems Y Gynecological History Statement/Question Response Menses Monthly [...] SNOMED-CT Code Diagnosis ICD10 Code Diagnosis Note [id number] Beto Del Rio MD [facility] [place] [address] [place] [address] 01/31/2024 10:14:46 01/31/2024 11:39:21 Adult health examination 406025951 Z00.01 new wellness exam completed. Body mass index 40+ - severely obese 803601935 Z68.41 BMI is 43.5 Long-term drug therapy 890052097 Z79.899 labs reviewed from September 2023, a1c 5.5%, thyroid stable. vitamin D stable. LDL 116. Headache 35016104 R51.9 2-3 per month. Takes motrin 600mg and rizatripta n and that helps completely . Undifferen tiated connective tissue disease 809901275 M35.1 following with Rheumatolo gy and on hydroxychl oroquine therapy. Some symptoms improved but overall still very symptomati c. she will discuss more with specialist . Hypothyroidism 89999313 E03.[address] Gallo. labs completed a few months ago. Hyperlipidemia 89256741 E78.5 LDL 116 on september labs. Intentiona l weight loss 241864395 R63.8 now on compounded semaglutid e [facility]. Polycystic ovary syndrome 157468171 E28.2 stable. hx reported Poor short -term memory 480018291 R41.3 noted on review of systems. Subjective pulsatile tinnitus of right ear 1091414129 520622 H93.A1 refer for MRI brain and IAC's w/wo contrast for evaluation in unilateral subjective pulsatile tinnitus ongoing for months. [id number] Beto Del Rio MD [facility] [address] [place] [address] 2024 11:59:52 2024 12:49:25 Body mass index 40+ - severely obese 601031264 Z68.41 BMI is 43.5 Low back pain 559009994 M54.50 Start methocarba mol 750 mg 3 times a day for muscle relaxant and meloxicam 7.5 mg twice daily for anti-infla mmatory Lower urin arley tract symptoms 823897710 R39.9 Start Augmentin twice daily as directed for 7 days for underlying urinary tract symptoms Optic disc swelling 2484 43621 H47.10 Patient is still waiting for her March appointmen t with the neuro ophthalmol ogist at [facility] Obesity 588334906 E66.8 discussed healthy diet, exercise, controllin g carbohydra stephanie and added sugars in the diet [id number] Beto Del Rio MD [facility] [address] [place] [address] 08/04/2024 11:53:06 08/04/2024 14:30:33 Benign intracranial hypertension 26676306 G93.2 Patient is following with a specialist see consultati on note. She is now taking acetazolam chuckie ER 500 mg 2 capsules twice daily Hypothyroidism 79699798 E03.9 We will take over management of routine hypothyroi dism. Patient is taking levothyrox ine 88 mcg daily. She is due for updated thyroid function testing. Long-term drug therapy 175115952 Z79.899 labs reviewed from September 2023, a1c 5.5%, thyroid stable. vitamin D stable. LDL 116. Obesity 252337753 E66.9 discussed healthy diet, exercise, controllin g carbohydra stephanie and added sugars in the diet Undifferen tiated connective tissue disease 693387015 M35.1 following with Rheumatolo gy and on hydroxychl oroquine therapy. 200 mg 2 tablets daily Dysuria 28491204 R30.0 Patient does report some mild dysuria so we will include a urinalysis with culture on her labs Goiter 5293887 E04.9 History of goiter discussed. We will send for an updated thyroid ultrasound to evaluate anatomy of the thyroid Polycystic ovary syndrome 112939001 E28.2 stable. hx reported Insulin resistance 56419 5000 E88.819 Fasting insulin and A1c levels are due Migraine 90305222 G43.90 9 As far as migraine therapy is concerned she is overall stable. She does take rizatripta n 10 mg on an as-needed basis as directed Cholesterol screening 27 4089344 Z13.220 Fasting lipid panel is due [id number] Beto Del Rio MD [facility] [address] [place] [address] 09/19/2024 11:20:43 09/19/2024 12:13:34 Benign intracranial hypertension 19199021 G93.2 Patient is following with a specialist see consultati on note. She is now taking acetazolam chuckie ER 500 mg 2 capsules twice daily Hypothyroidism 69593237 E03.9 We will take over management of routine hypothyroi dism. Patient is taking levothyrox ine 88 mcg daily. Next labs are due in January Goiter 3092908 E04.9 Recent thyroid ultrasound is stable with no acute concerns Undifferen tiated connective tissue disease 871232637 M35.1 following with Rheumatolo gy and on hydroxychl oroquine therapy. 200 mg 2 tablets daily Polycystic ovary syndrome 276493397 E28.2 stable. hx reported Insulin resistance 87862 5000 E88.819 History noted, diet managed in stable Migraine 34352868 G43.90 9 As far as migraine therapy is concerned she is overall stable. She does take rizatripta n 10 mg on an as-needed basis as directed Obesity 052881345 E66.9 discussed healthy diet, exercise, controllin g carbohydra stephanie and added sugars in the diet Long-term drug therapy 403884763 Z79.899 Labs are up-to-date Body mass index 30+ - obesity 501032324 Z68.38 BMI 38.9 Seasonal a ffective disorder 883648190 F33.9 Trial of sertraline 25 mg daily [...] Johnson Member ID Guarantor Name 01/31/2024 1 [facility] Jacinto [id number] Tariq Casey 2024 1 [facility] Candido Jacinto [id number] Tariq Casey 08/04/2024 1 [facility] Candido Jacinto [id number] Tariq Casey 09/19/2024 1 [facility] Jacinto [id number] Tariq Casey Notes Date Note Type Note Provider [...] more headaches. BEN Mckeon Attn: Accounting, [address] [facility], [place], [address], [facility] 02/16/2024 13:00:49 03/23/20 text/htm l Back PainReported [...] mild dysuria BEN Mckeon Attn: Accounting, [address] [place], [address], [facility] 03/27/2024 10:41:28 08/04/19 text/htm l HeadacheReported bypatient.Notes:long standing hx- takes [...] double dose. BEN Mckeon Attn: Accounting, [address] [facility], [place], [address], [facility] 08/07/2024 10:27:55 09/19/19 25 text/htm l Anxiety/DepressionReported [...] double dose. BEN Mckeon Attn: Accounting, [address] [place], [address], [facility] 09/20/2024 00:45:39 OBGyn Episode No OBEpisode recorded.
--- OUTSIDE RECORDS SUMMARY | 2024-12-15 01:57 | XMS_ITS | Clinical Summary ---
Author Organization [facility] Address [address] [place] [address] Care Team Providers Care Blocker Hand Name Role Phone Bebe Bullock MD Primary Care Provider + Allergies No known active allergies Medications PLUS 27-1 MG PO TABS Take 27 mg by mouth daily. 08/23/2014 Active ERGOCALCIFEROL 92409 UNIT PO CAPS Take 50,000 Units by mouth as needed. 06/08/2014 Active CLOBETASOL 0.05 % EX OINT Apply 0.05 Tubes as needed. 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 Gender Identity Not on file Sexual Orientation Not on file 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 Not on file Not on file Not on file Last Filed Vital Signs Vital Sign Reading Time Taken Comments Blood Pressure 110/68 09/26/2014 11:23 AM TUNNEL KILN REPAIRER Pulse 74 09/26/2014 11:23 AM TUNNEL KILN REPAIRER Temperature - - Respiratory Rate - - Oxygen Saturation - - Inhaled Oxygen Concentration - - Weight 101.2 kg (223 lb) 09/26/2014 11:23 AM TUNNEL KILN REPAIRER Height 165.1 cm (5' 5 ) 09/26/2014 11:23 AM TUNNEL KILN REPAIRER Body Mass Index 37.11 09/26/2014 11:23 AM TUNNEL KILN REPAIRER Plan of Treatment Health Maintenance Due Date Last Done Comments TdaP Immunization 1985 Hepatitis B Immunization (1 of 3 - 19+ 3-dose series) 2004 Pap Smear 2006 Cervical Cancer Screening (CCS) 2015 HPV/Cotest 2015 Influenza Immunization (#1) 2024 SARS-COV-2 Immunization ( season) 2024 Respiratory Syncytial Virus (RSV) Immunization (Adult) (1 - 1-dose 75+ series) 2060 Hepatitis C Virus (HCV) Screening Completed 015 Meningococcal Immunization (ACWY) Aged Out No longer eligible based on patient's age to complete this topic Pneumococcal Immunization Combined Aged Out No longer eligible based on patient's age to complete this topic Rotavirus Immunization Aged Out No lo nger eligible based on patient's age to complete this topic Procedures Procedure Name Priority Date/Time Associated Diagnosis Comments HEPATITIS C ANTIBODY Today 09/26/2014 12:17 PM TUNNEL KILN REPAIRER Antinuclear factor positive from Last 3 Months or Most Recently Relevant to Health Maintenance Results * HEPATITIS C ANTIBODY (09/26/2014 12:17 PM TUNNEL KILN REPAIRER) hepatitis C antibody 0.11 <1 S/CO 09/26/2014 5:44 PM TUNNEL KILN REPAIRER [facility] Comment: Signal/Cutoff ratio < 0.79 is Nondetected Signal/Cutoff ratio 0.80-0.99 is Grayzone Signal/Cutoff ratio > 0.99 is Detected Supplemental assays are recommended if signal/cutoff ratio is >/=1.00. Signal/cutoff ratio result >/= 5.00 is 97% predictive of positivity for recombinant immunoblot assay (RIBA) and will be reported to the [place] Department of Public Health as required. Blood specimen (specimen) Venipuncture / Unknown 09/26/2014 12:17 PM TUNNEL KILN REPAIRER 09/26/2014 12:17 PM TUNNEL KILN REPAIRER us Troy Landaverde MD CHEMISTRY ORDERABLES Final Resul t [facility] [address] [place] [place] [address] from Last 3 Months or Most Recently Relevant to Health Maintenance Insurance MEDICAID [facility] Care Teams Blocker Hand Relationship Specialty Start Date End Date Bebe Bullock MD [address] [place] [id number] PCP - General Family Medicine 09/26/14
--- OUTSIDE RECORDS SUMMARY | 2024-12-15 01:57 | XMS_ITS | Clinical Summary ---
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
--- OUTSIDE RECORDS SUMMARY | 2024-12-15 01:57 | XMS_ITS | Continuity of Care Document ---
Author Organization [facility] Address [address] [place] [address] Phone Care Team Providers Care Senior Oracle Dba Name Role Phone Unavailable Unavailable Unavailable Advance Directives Directive Yes / No Effective Date File Name No Information Encounters Encounter Description Practice Location Reason(s) For Visit Diagnoses Date Provider Providers Copied on Encounter [facility], [address] [facility], [place], [place], [id number], [place] tel:[phone] [facility] No Information No Information Referring Provider: REFERRAL SELF. Family History Family Member Type Diagnosis Age At Onset No Information Payers Payer name Insurance type Covered democrat ID Authoriza tibrooklyn(s) [facility] [id number] Social History Type Description Quantity Date Captured Comments Sex Female Smoking Status No Information Chief Complaint And Reason For Visit No Information History Of Present Illness Encounter Date Complaint History Of Prese nt Illness No Information Instructions Date Instruction Additional Infor mation No Information Assessments Type Assessment Date No Information
--- OUTSIDE RECORDS SUMMARY | 2024-12-15 01:57 | XMS_ITS | Clinical Summary ---
Author Organization [facility] Healthcare Address [address] [place] [address] Care Team Providers Care Assistant Golf Course Superintendent Name Role Phone Tiffany Kay Primary Care Pr ovider Allergies Active Allergy Reactions Criticality Noted Date Comments Gluten Stomach upset High 03/30/2024 Medications rizatriptan IRRIGATION WORKER (MAXALT-IRRIGATION WORKER) 10 mg disintegrating tabletIndications: Migraine Take 1 tablet (10 mg total) by mouth once as needed 08/01/[address] (PROTONIX) 40 mg EC tablet TAKE 1 TABLET BY MOUTH IN THE MORNING BEFORE BREAKFAST . 03/25/20 20 Active clindamycin (Cleocin T) 1 % lotionIndications: Folliculitis Apply thin layer to affected area at groin every day and apply to inflamed bumps BID as needed. 60 mL 11 07/10/20 21 Active artificial tears,hypromellose , 0.3 % dropsIndications:D ry Eye Administer 1 drop into both eyes as needed (dry / irritated eyes) Active levothyroxine (SYNTHROID) 88 mcg tablet TAKE 1 TABLET BY MOUTH EVERY DAY FOR 90 DAYS 06/18/20 24 Active acetaZOLAMIDE ER (DIAMOX SEQUAL) 500 mg capsuleIndications :IIH (idiopathic intracranial hypertension),Dion lledema associated with increased intracranial pressure TAKE 2 CAPSULES (1,000 MG TOTAL) BY MOUTH TWICE A DAY 360 capsule 10/03/19 25 Active hydroxychloroquine (PLAQUENIL) 200 mg tablet TAKE 2 TABLETS BY MOUTH EVERY DAY 180 tablet 1 10/04/19 25 Active sertraline (ZOLOFT) 25 mg tablet Take 1 tablet (25 mg total) by mouth every evening 09/19/19 25 Active oxyCODONE-acetamin ophen (PERCOCET) 5-325 mg per tablet Take 1 tablet by mouth 11/24/19 25 025 Discontin ued(Thera py completed ) Active Problems Problem Noted Date Diagnosed Date [...] Encounters Date Type Department Care Team Description 12/12/2024 10:30 AM CDT Office Visit [facility] [address] [place] [phone] Paul Pickering MD PhD IIH (idiopathic intracranial hypertension) (Primary Dx); Papilledema associated with increased intracranial pressure 12/12/2024 8:50 AM CDT Imaging Exam [facility] [address] [place] [phone] II (idiopathic intracranial hypertension) 12/07/2024 Telephone [facility] [address] [place] [phone] Paul Pickering MD PhD 11/30/2024 Orders Only [facility] [address] [place] [phone] Paul Pickering MD PhD IIH (idiopathic intracranial hypertension) (Primary Dx) 11/29/2024 Results Follow-Up [facility] [address] Medical Office Building [address] [place] [address] Dipti Patterson, HARLEY Anti-double stranded DNA abs, C4 complement, C3 complement, Additional followed-up results: 6 11/28/2024 2:30 PM CDT Lab [facility] at [address] [phone] High risk medication use 11/28/2024 2:00 PM CDT Office Visit [facility] [address] [place] [address] Medical Office Building [address] [place] [address] Dipti Patterson, HARLEY Systemic lupus erythematosus, unspecified SLE type, unspecified organ involvement status (HCC) (Primary Dx); High risk medication use 10/03/2024 9:30 AM CDT Office Visit [facility] [address] [place] [address] [place] [phone] Paul Pickering MD PhD IIH (idiopathic intracranial hypertension) (Primary Dx); Papilledema associated with increased intracranial pressure 10/03/2024 9:20 AM CDT Imaging Exam [facility] [address] [place] [phone] IIH (idiopathic intracranial hypertension) (Primary Dx); Papilledema of both eyes; Papilledema associated with increased intracranial pressure 09/26/2024 Orders Only [facility] [address] [place] [address] [place] [phone] Paul Pickering MD PhD Papilledema of both eyes (Primary Dx) from Last 3 Months Immunizations Immunization Administration Dates Next Due Pfizer SARS-CoV-2 Monovalent Vaccination (12+ Yrs) PURPLE 10/20/2020 Surgical History Surgery Date Site/Laterality Comments MYRINGOTOMY W/ TUBES TYMPANIC MEMBRANE REPAIR SECTION 07/26/2015 - 07/25/2016 WISDOM TOOTH EXTRACTION ANKLE SURGERY HYSTERECTOMY BLAD[facility]. 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 2-4 times a month 11/28/2024 Q2: How many drinks containi ng alcohol do you have on a typical day when you are drinking? 1 or 2 11/28/2024 Q3: How often do you have si x or more drinks on one occasion? Never 11/28/2024 Comments Unknown Sex and Gender Information Value Date Recorded Sex Assigned at Not on file Legal Sex Female 10:43 AM CDT Gender Identity Female 07/10/2021 12:30 PM CAMPAIGN MARKETING MANAGER Sexual Orientation Straight 07/10/2021 12 :30 PM CAMPAIGN MARKETING MANAGER Obstetrics History Last Filed Vital Signs Vital Sign Reading Time Taken Comments Blood Pressure 107/70 11/28/2024 1:35 PM CDT Pulse 80 11/28/2024 1:35 PM CDT Temperature 37 C (98.6 F) 11/28/2024 1:35 PM CDT Respiratory Rate 15 10/27/2019 3:00 PM CDT Oxygen Saturation 99% 11/28/2024 1:35 PM CDT Inhaled Oxygen Concentration - - Weight 104.3 kg (230 lb) 11/28/2024 1:35 PM CDT Height 165.1 cm (5' 5 ) 11/28/2024 1:35 PM CDT Body Mass Index 38.27 11/28/2024 1:35 PM CDT Plan of Treatment Health Maintenance [...] this topic Medical Devices Implanted Type Area Spaghetti Press Helper Device Identifier Shelf Expiration Date Model / Serial / Lot [employer] rtho [id number] Evos Mini 34mm 5 Hole Luz Elena Low Profile Variable Angle Small Bone - [id number] Implanted:Qty: 1 on 10/27/2019 by Myriam Murphy MD at [facility] Plate Right: Ankle [employer]Or tho [id number] / / [employer] rtho [id number] Evos Mini 52mm 5 Hole Luz Elena Low Profile Variable Angle Small Bone - [id number] Implanted:Qty: 1 on 10/27/2019 by Myriam Murphy MD at [facility] Plate Right: Ankle [employer]Or tho [id number] / / [employer] rtho [id number] Evos Mini 140mm 20 Hole Strenght Low Profile Variable Angle Small - [id number] Implanted:Qty: 1 on 10/27/2019 by Myriam Murphy MD at [facility] Plate Right: Ankle [employer]Or tho [id number] / / [employer] rtho [id number] 2.7mm 4.3mm 24mm Self Tap Lock T8 2mm Screw Bone Evos - [id number] Implanted:Qty: 1 on 10/27/2019 by Myriam Murphy MD at [facility] Screw Right: Ankle [employer]Or tho [id number] / / [employer] rtho [id number] Evos 2.4mm 14mm Self Tap Self Retaining Drive Small Bone Long - [id number] Implanted:Qty: 1 on 10/27/2019 by Myriam Murphy MD at [facility] Screw Right: Ankle [employer]Or tho [id number] / / [employer] rtho [id number] Evos 2.4mm 16mm Self Tap Self Retaining Drive Small Bone Long - [id number] Implanted:Qty: 1 on 10/27/2019 by Myriam Murphy MD at [facility] Screw Right: Ankle [employer]Or tho [id number] / / [employer] rtho [id number] Evos 3.5mm 80mm Self Tap Cortex Screw Bone Sterile - [id number] Implanted:Qty: 1 on 10/27/2019 by Myriam Murphy MD at [facility] Screw Right: Ankle [employer]Or tho [id number] / / [employer] r[employer]o [id number] 2.7mm 4.5mm 36mm Self Tap Cortex T8 2mm Screw Bone Evos - [id number] Implanted:Qty: 1 on 10/27/2019 by Myriam Murphy MD at [facility] Screw Right: Ankle [employer]Or tho [id number] / / [employer] rtho [id number] 2.7mm 4.5mm 28mm Self Tap Cortex T8 2mm Screw Bone Evos - [id number] Implanted:Qty: 2 on 10/27/2019 by Myriam Murphy MD at [facility] Screw Right: Ankle [employer]Or tho [id number] / / [employer] rtho [id number] Evos Mini 2.7mm 4.5mm 40mm Self Tap Squeegee Finisher Long Bone Small Bone - [id number] Implanted:Qty: 2 on 10/27/2019 by Myriam Murphy MD at [facility] Screw Right: Ankle [employer]Or tho [id number] / / [employer] rtho [id number] Evos 2.7mm 4.5mm 34mm Self Tap Cortex T8 Screw Bone Nonsterile - [id number] Implanted:Qty: 1 on 10/27/2019 by Myriam Murphy MD at [facility] Screw Right: Ankle [employer]Or tho [id number] / / [employer] rtho [id number] 2.7mm 4.5mm 15mm Self Retaining Screwdriver Self Tap Flat Head - [id number] Implanted:Qty: 1 on 10/27/2019 by Myriam Murphy MD at [facility] Screw Right: Ankle [employer]Or tho [id number] / / [employer] rtho [id number] Evos 2.7mm 4.5mm 18mm Self Tap Cortex T8 Screw Bone Nonsterile - [id number] Implanted:Qty: 2 on 10/27/2019 by Myriam Murphy MD at [facility] Screw Right: Ankle [employer]/Or tho [id number] / / [employer]/O rtho [id number] 2.7mm 4.5mm 24mm Self Retaining Screwdriver Self Tap Flat Head - [id number] Implanted:Qty: 1 on 10/27/2019 by Myriam Murphy MD at [facility] Right: Ankle [employer]Or tho [id number] / / Procedures Procedure Name Priority Date/Time Associated Diagnosis Comments OCT, RETINA - OU - BOTH EYES Routine 12/12/2024 8:55 AM CDT IIH (idiopathic intracranial hypertension) OCT, OPTIC NERVE - OU - BOTH EYES Routine 12/12/2024 8:55 AM CDT IIH (idiopathic intracranial hypertension) EGFR Routine 11/28/2024 2:16 PM CDT High risk medication use DIFFERENTIAL AUTO Routine 11/28/2024 2:1 6 PM CDT High risk medication use CBC WITH AUTO DIFFERENTIAL Routine 11/28/2024 2:16 PM CDT High risk medication use COMPREHENSIVE METABOLIC PANEL Routine 11/28/2024 2:16 PM CDT High risk medication use CRP (ACUTE PHASE) Routine 11/28/2024 2:1 6 PM CDT High risk medication use ERYTHROCYTE SEDIMENTATION RATE Routine 11/28/2024 2:16 PM CDT High risk medication use C3 COMPLEMENT Routine 11/28/2024 2:16 PM CDT High risk medication use C4 COMPLEMENT Routine 11/28/2024 2:16 PM CDT High risk medication use ANTI-DOUBLE STRANDED DNA ANTIBODIES Routine 11/28/2024 2:16 PM CDT High risk medication use OCT, RETINA - OU - BOTH EYES [...] OCT, Retina - OU - Both Eyes (12/12/2024 8:55 AM CDT) Pathologist [facility] Central Macular Thickness OS 273 mircometers CONTINUUM Central Macular Thickness OD 263 micrometers CONTINUUM Anatomical Region Laterality Modality Head Other Narrative 12/12/2024 10:21 AM CDT Right Eye Quality was good. Macular thickness was 263 micrometers. Left Eye Quality was good. Macular thickness was 273 mircometers. Notes Ganglion cell layer (GCL)+inner plexiform layer (IPL) thickness: 79um OD, 95um OS. Normal macular thickness OU, GCC normal OD, thickened likely due to gliosis OS. Paul Pickering MD PhD OPHTH TOMOGRAPHY Final Resul t * OCT, Optic Nerve - OU - Both Eyes (12/12/2024 8:55 AM CDT) Pathologist [facility] RNFL OS 100 micrometers CONTINUUM RNFL OD 96 micrometers CONTINUUM Anatomical Region Laterality Modality Head Other Narrative 12/12/2024 10:16 AM CDT Right Eye Reliability was good. Average RNFL thickness 96 micrometers. Left Eye Reliability was good. Average RNFL thickness 100 micrometers. Notes Stable RNFL OU. Paul Pickering MD PhD OPHTH TOMOGRAPHY Final Resul t * (ABNORMAL) Anti-double stranded DNA abs (11/28/2024 2:16 PM CDT) [facility] dsDNA Ab 7.0(H) <=4.0 IUnits/mL Comment: Interpretive Data Negative: < or = 4 IUnits/mL Indeterminate: 5 - 9 IUnits/mL Positive: > or = 10 IUnits/mL Current interpretive data was last revised on 2016. Testing performed by: [facility], [address] [place]., [address] Blood 11/28/2024 2:16 PM CDT 11/28/2024 4:23 PM CDT Dipti Patterson NP LAB BLOOD ORDERABLES Fi nal Result JOLIE [facility] [address] [facility]. [place] [address] * eGFR (11/28/2024 2:16 PM CDT) [facility] eGFR >90 >=60 mL/min/1. 73 m2 Comment: Interpretive Data Reference Interval Normal >/= 90 mL/min/1.73m2 Mildly decreased* 60 - 89 mL/min/1.73m2 Mildly to moderately decreased 45 - 59 mL/min/1.73m2 Moderately to severely decreased 30 - 44 mL/min/1.73m2 Severely decreased 15 - 29 mL/min/1.73m2 Kidney Failure < 15 mL/min/1.73m2 *Relative to young adult level Estimated glomerular filtration rate is determined by the 2020 CKD-EPI equation recommended by the National Kidney Foundation (A Unifying Approach to GFR Estimation: Recommendations of the NKF-ASK Task Force on Reassessing the Inclusion of Race in Diagnosing Kidney Disease, JASN 2020). The CKD-EPI equation should not be used for patients with unstable renal function and has not been validated in children and those over 70. Current interpretive data was last reviewed 2021. Testing performed by: [facility], [address] [place] [address] Blood 11/28/2024 2:16 PM CDT 11/28/2024 2:30 PM CDT us Dipti Patterson NP LAB BLOOD ORDERABLES nal Result [facility] [address] Department [place] [address] * Differential, auto (11/28/2024 2:16 PM CDT) Neutrophil abs 6.29 1.50 - 6.50 K/cumm Comment:Testing performed by : [facility], [address], [address] [place] [address] Imm gran abs 0.03 0.00 - 0.10 K/cumm JOLIE HART Comment:Testing performed by : [facility], [address], [address] [place] [address] Lymphocyte abs 1.77 0.80 - 3.30 K/cumm JOLIE HART Comment:Testing performed by : [facility], [facility], [address] [place] [address] Monocyte abs 0.67 0.20 - 0.80 K/cumm CERNER BJWCH Comment:Testing performed by : [facility], [facility], [address] [place] [address] Eosinophil abs 0.10 0.00 - 0.50 K/cumm CERNER BJWCH Comment:Testing performed by : [facility], [facility], [address], [place] [address] Basophil abs 0.05 0.00 - 0.10 K/cumm CERNER BJWCH Comment:Testing performed by : [facility], [facility], [address], [place] [address] Neutrophil pct 70.6 % CERNER BJWCH Comment: Interpretive Data Percent cell count reference ranges are not reported, since discordance with absolute values may lead to misinterpretation of CBC data. Current Interpretive Data was last revised on 2017. Testing performed by: [facility], [facility], [address], [place] [address] Imm gran pct 0.3 % CERNER BJWCH Comment: Interpretive Data Percent cell count reference ranges are not reported, since discordance with absolute values may lead to misinterpretation of CBC data. Current Interpretive Data was last revised on 2017. Testing performed by: [facility], [facility], [address] [place] [address] Lymphocyte pct 19.9 % CERNER BJWCH Comment: Interpretive Data Percent cell count reference ranges are not reported, since discordance with absolute values may lead to misinterpretation of CBC data. Current Interpretive Data was last revised on 2017. Testing performed by: [facility], [facility], [address] [place] [address] Monocyte pct 7.5 % CERNER BJWCH Comment: Interpretive Data Percent cell count reference ranges are not reported, since discordance with absolute values may lead to misinterpretation of CBC data. Current Interpretive Data was last revised on 2017. Testing performed by: [facility], [facility], [address] [place] [address] Eosinophil pct 1.1 % JOLIE HART Comment: Interpretive Data Percent cell count reference ranges are not reported, since discordance with absolute values may lead to misinterpretation of CBC data. Current Interpretive Data was last revised on 2017. Testing performed by: [facility], [facility], [address] [place] [address] Basophil pct 0.6 % JOLIE HART Comment: Interpretive Data Percent cell count reference ranges are not reported, since discordance with absolute values may lead to misinterpretation of CBC data. Current Interpretive Data was last revised on 2017. Testing performed by: [facility], [facility], [address] [place] [address] Blood 11/28/2024 2:16 PM CDT 11/28/2024 2:17 PM CDT Dipti Patterson NP LAB BLOOD ORDERABLES Fi nal Result [facility] [address] [address] [facility] [place] [address] * C4 complement (11/28/2024 2:16 PM CDT) Complement C4 34 10 - 40 mg/dL Comment:Testing performed by : [facility], [address] [place] [address], [place]., [address] Blood 11/28/2024 2:16 PM CDT 11/28/2024 6:18 PM CDT Dipti Patterson NP LAB BLOOD ORDERABLES Fi nal Result [facility] [address] [address] [facility] [place] [address] * CBC with auto differential (11/28/2024 2:16 PM CDT) WBC 8.91 3.80 - 9.90 K/cumm Comment:Testing performed by : [place] [address], [address] [place] [address] Hgb 13.5 11.9 - 15.5 g/dL CERNER BJWCH Comment:Testing performed by : [place] [address], [address] [place] [address] Hct 40.5 35.6 - 45.5 % CERNER BJWCH Comment:Testing performed by : [place] [address], [address] [place] [address] Plt 207 150 - 400 K/cumm CERNER BJWCH Comment:Testing performed by : [place] [address], [address] [place] [address] MPV 10.2 9.1 - 12.3 fL CERNER BJWCH Comment:Testing performed by : [address], [place] [address] RBC 4.67 3.90 - 5.20 M/cumm CERNER BJWCH Comment:Testing performed by : [place] [address], [address], [place] [address] MCV 86.7 81.3 - 96.4 fL CERNER BJWCH Comment:Testing performed by : [address], [place] [address] MCH 28.9 27.1 - 33.3 pg CERNER BJWCH Comment:Testing performed by : [place] [address], [address], [place] [address] MCHC 33.3 32.3 - 35.7 g/dL CERNER BJWCH Comment:Testing performed by : [place] [address], [address] [place] [address] RDW CV 13.6 11.1 - 14.9 % CERNER BJWCH Comment:Testing performed by : [place] [address], [address] [place] [address] RDW SD 42.7 35.7 - 48.1 fL JOLIE HART Comment:Testing performed by : [facility], [facility], [address] [place] [address] ANC Prelim 6.29 1.50 - 6.50 K/cumm JOLIE HART Comment: Interpretive Data The rapid ANC is a preliminary automated count and may vary from the final ANC (Neut Abs) reported in the WBC differential that follows. Current interpretive data was last revised 2024. Testing performed by: [facility], [facility], [address] [place] [address] Blood 11/28/2024 2:16 PM CDT 11/28/2024 2:17 PM CDT Dipti Patterson NP LAB BLOOD ORDERABLES Fi nal Result Performing Organization Address City/[facility]/ZIP Co de Phone Number JOLIE WCH [address] [facility]. [facility] [place] [address] * Erythrocyte sedimentation rate (11/28/2024 2:16 PM CDT) [facility] Erythrocyte sedimentation rate 1 1 - 20 mm/hr Comment:Testing performed by : [facility], [address] [place] [address] Blood 11/28/2024 2:16 PM CDT 11/28/2024 2:55 PM CDT Dipti Patterson NP LAB BLOOD ORDERABLES Fi nal Result JOILE [facility] [address] [facility]. [facility] [place] [address] * C3 complement (11/28/2024 2:16 PM CDT) [facility] Complement C3 151 90 - 180 mg/dL Comment:Testing performed by : [facility], [address] [facility], [place]., [address] Blood 11/28/2024 2:16 PM CDT 11/28/2024 6:18 PM CDT Dipti Patterson COSMETIC SALES ASSISTANT LAB BLOOD ORDERABLES Fi nal Result Performing Organization Address [facility]/ZIP Co de Phone Number [facility] [address] Department [place] [address] * (ABNORMAL) CRP (acute phase) (11/28/2024 2:16 PM CDT) CRP 12.1(H) <=10.0 mg/L Comment:Testing performed by : [facility], [address] [place] [address] Blood 11/28/2024 2:16 PM CDT 11/28/2024 2:30 PM CDT Dipti Patterson COSMETIC SALES ASSISTANT LAB BLOOD ORDERABLES Ed ited Result - Final Performing Organization Address [facility] Co de Phone Number [facility] [address] Department [place] [address] * (ABNORMAL) Comprehensive metabolic panel (11/28/2024 2:16 PM CDT) Sodium 140 135 - 145 mmol/L Comment:Testing performed by : [facility], [address], [place] [address] Potassium, pl 4.0 3.3 - 4.9 mmol/L CERJOSE M BJWCH Comment:Testing performed by : [facility], [address], [place], [place] [address] Chloride 108 97 - 110 mmol/L CERJOSE M BJWCH Comment:Testing performed by : [facility], [address], [place] [address] CO2 19(L) 22 - 32 mmol/L CERJOSE M BJWCH Comment:Testing performed by : [facility], [address], [place] [address] Anion gap 14 2 - 15 mmol/L CERNER BJWCH Comment:Testing performed by : [facility], [address], [place] [address] BUN 17 6 - 25 mg/dL CERNER BJWCH Comment:Testing performed by : [facility], [address], [place] [address] Creatinine 0.83 0.60 - 1.10 mg/dL CERNER BJWCH Comment:Testing performed by : [facility], [address], [place] [address] Glucose 93 70 - 199 mg/dL CERNER BJWCH Comment: Interpretive Data Fasting glucose >/= 126 mg/dl is diagnostic for diabetes. Fasting is defined as no caloric intake for at least 8 hours. Fasting glucose between 100 mg/dl to 125 mg/dl is diagnostic of prediabetes. In a patient with classic symptoms of hyperglycemia or hyperglycemic crisis, a random glucose >/= 200 mg/dl is diagnostic for diabetes. In the absence of unequivocal hyperglycemia, results should be confirmed by repeat testing. The classification and Diagnosis of Diabetes Diabetes Care 2021; 46: S19-S40. Current interpretive data was last revised 2022. Testing performed by: [facility], [address], [place] [address] Calcium 8.9 8.5 - 10.3 mg/dL CERNER BJWCH Comment:Testing performed by : [facility], [address], [place] [address] Bilirubin, total 0.2 0.1 - 1.2 mg/dL CERNER BJWCH Comment:Testing performed by : [facility], [address], [place] [address] Protein, pl 7.0 6.5 - 8.5 g/dL CERNER BJWCH Comment:Testing performed by : [facility], [address], [place] [address] Albumin 4.0 3.5 - 5.0 g/dL CERNER BJWCH Comment:Testing performed by : [facility] [facility], [address], [place] [address] Alk phos 63 40 - 130 Units/L [facility] Comment:Testing performed by : [facility], [address], [place] [address] ALT 42 7 - 45 Units/L JOLIE ZULUAGACH Comment:Testing performed by : [facility], [address], [place] [address] AST 18 10 - 45 Units/L JOLIE ZULUAGAWCH Comment:Testing performed by : [facility], [address], [place] [address] Blood 11/28/2024 2:16 PM CDT 11/28/2024 2:30 PM CDT Dipti Patterson COSMETIC SALES ASSISTANT LAB BLOOD ORDERABLES Ed ited Result - Final JOLIE [facility] [address] [place] [address] * OCT, Retina - OU - Both [...] thickness 102 micrometers. Notes Improving RNFL OU. Paul Pickering MD PhD OPHTH TOMOGRAPHY Edited Resu lt - Final from Last 3 Months Insurance [facility] CHOICE PLUS [facility] CHOICE PLUS Care Teams Assistant Golf Course Superintendent Relationship Specialty Start Date End Date Tiffany Kay PA [address] [place] [address] PCP - General Physician Miner 02/17/24
--- OUTSIDE RECORDS SUMMARY | 2024-12-15 01:57 | XMS_ITS | Referral Summary ---
Author Organization [facility] Healthcare Address [address] [place] [address] Care Team Providers Care Bench Molder Apprentice Name Role Phone Tiffany Kay Primary Care Pr ovider Encounters Date Type Department Care Team Description 12/12/2024 10:30 AM CDT Office Visit [facility] Ophthalmology [address] [place] [phone] Paul Pickering MD PhD IIH (idiopathic intracranial hypertension) (Primary Dx); Papilledema associated with increased intracranial pressure 12/12/2024 8:50 AM CDT Imaging Exam [facility] Ophthalmology [address] [place] [phone] II (idiopathic intracranial hypertension) 12/07/[address] [facility] Ophthalmology [address] [place] [phone] Paul Pickering MD PhD 11/30/[address] [facility] Ophthalmology [address] [place] [phone] Paul Pickering MD PhD IIH (idiopathic intracranial hypertension) (Primary Dx) 11/29/2024 Results Follow-Up [facility] Rheumatology [address] [facility] Medical Office Building [address] [place] [phone] Dipti Patterson, VASCULAR TECHNOLOGIST SONOGRAPHER Anti-double stranded DNA abs, C4 complement, C3 complement, Additional followed-up results: 6 11/28/2024 2:30 PM CDT Lab [facility] at [address] [phone] High risk medication use 11/28/2024 2:00 PM CDT Office Visit [facility] Rheumatology [address] [facility] Medical Office Building [address] [place] [address] Dipti Patterson NP Systemic lupus erythematosus, unspecified SLE type, unspecified organ involvement status (HCC) (Primary Dx); High risk medication use 10/03/2024 9:30 AM CDT Office Visit [facility] Ophthalmology [address] [place] [address] [place] [phone] Paul Pickering MD PhD IIH (idiopathic intracranial hypertension) (Primary Dx); Papilledema associated with increased intracranial pressure 10/03/2024 9:20 AM CDT Imaging Exam [facility] Ophthalmology [address] [place] [phone] IIH (idiopathic intracranial hypertension) (Primary Dx); Papilledema of both eyes; Papilledema associated with increased intracranial pressure 09/26/[address] [facility] Ophthalmology [address] [place] [phone] Paul Pickering MD PhD Papilledema of both eyes (Primary Dx) from Last 3 Months Allergies Active Allergy Reactions Criticality Noted Date Comments Gluten Stomach upset High 03/30/2024 Medications rizatriptan MEDICAL RECORD TRANSCRIBER (MAXALT-MEDICAL RECORD TRANSCRIBER) 10 mg disintegrating tabletIndications: Migraine Take 1 [...] CDT Gender Identity Female 07/10/2021 12:30 PM ADVENTURE GUIDE Sexual Orientation Straight 07/10/2021 12 :30 PM ADVENTURE GUIDE Last Filed Vital Signs Vital Sign Reading [...] 11/28/2024 1:35 PM CDT Plan of Treatment Not on file Medical Devices Implanted Type Area Pharmacy Cashier Device Identifier Shelf Expiration Date Model / Serial / Lot [employer]O rtho [id number] Evos Mini 34mm 5 Hole Luz Elena Low Profile Variable Angle Small Bone - [id number] Implanted:Qty: 1 on 10/27/2019 by Myriam Murphy MD at [facility] Plate Right: Ankle [employer]Or tho [id number] / / [employer]O rtho [id number] Evos Mini 52mm 5 Hole Luz Elena Low Profile Variable Angle Small Bone - [id number] Implanted:Qty: 1 on 10/27/2019 by Myriam Murphy MD at [facility] Plate Right: Ankle [employer]Or tho [id number] / / [employer]O rtho [id number] Evos Mini 140mm 20 Hole Strenght Low Profile Variable Angle Small - [id number] Implanted:Qty: 1 on 10/27/2019 by Myriam Murphy MD at [facility] Plate Right: Ankle [employer]Or tho [id number] / / [employer]O rtho [id number] 2.7mm 4.3mm 24mm Self Tap Lock T8 2mm Screw Bone Evos - [id number] Implanted:Qty: 1 on 10/27/2019 by Myriam Murphy MD at [facility] Screw Right: Ankle [employer]Or tho [id number] / / [employer]/O rtho [id number] Evos 2.4mm 14mm Self Tap Self Retaining Drive Small Bone Long - [id number] Implanted:Qty: 1 on 10/27/2019 by Myriam Murphy MD at [facility] Screw Right: Ankle [employer]Or tho [id number] / / [employer]/O rtho [id number] Evos 2.4mm 16mm Self Tap Self Retaining Drive Small Bone Long - [id number] Implanted:Qty: 1 on 10/27/2019 by Myriam Murphy MD at [facility] Screw Right: Ankle [employer]Or tho [id number] / / [employer]O rtho [id number] Evos 3.5mm 80mm Self Tap Cortex Screw Bone Sterile - [id number] Implanted:Qty: 1 on 10/27/2019 by Myriam Murphy MD at [facility] Screw Right: Ankle [employer]Or tho [id number] / / [employer]O rtho [id number] 2.7mm 4.5mm 36mm Self Tap Cortex T8 2mm Screw Bone Evos - [id number] Implanted:Qty: 1 on 10/27/2019 by Myriam Murphy MD at [facility] Screw Right: Ankle [employer]Or tho [id number] / / [employer]/O rtho [id number] 2.7mm 4.5mm 28mm Self Tap Cortex T8 2mm Screw Bone Evos - [id number] Implanted:Qty: 2 on 10/27/2019 by Myriam Murphy MD at [facility] Screw Right: Ankle [employer]Or tho [id number] / / [employer]/O rtho [id number] Evos Mini 2.7mm 4.5mm 40mm Self Tap Vinyl Welder And Fabricator Long Bone Small Bone - [id number] Implanted:Qty: 2 on 10/27/2019 by Myriam Murphy MD at [facility] Screw Right: Ankle [employer]Or tho [id number] / / [employer]/O rtho [id number] Evos 2.7mm 4.5mm 34mm Self Tap Cortex T8 Screw Bone Nonsterile - [id number] Implanted:Qty: 1 on 10/27/2019 by Myriam Murphy MD at [facility] Screw Right: Ankle [employer]Or tho [id number] / / [employer]Rich[employer]/O rtho [id number] 2.7mm 4.5mm 15mm Self Retaining Screwdriver Self Tap Flat Head - [id number] Implanted:Qty: 1 on 10/27/2019 by Myriam Murphy MD at [facility] Screw Right: Ankle [employer]Or tho [id number] / / [employer]Rich[employer]/O rtho [id number] Evos 2.7mm 4.5mm 18mm Self Tap Cortex T8 Screw Bone Nonsterile - [id number] Implanted:Qty: 2 on 10/27/2019 by Myriam Murphy MD at [facility] Screw Right: Ankle [employer]/Or tho [id number] / / [employer]Rich[employer]/O rtho [id number] 2.7mm 4.5mm 24mm Self Retaining Screwdriver Self Tap Flat Head - [id number] Implanted:Qty: 1 on 10/27/2019 by Myriam Murphy MD at [facility] Right: Ankle [employer]Rich[employer]/Or tho [id number] / / Procedures Procedure Name Priority Date/Time [...] - Both Eyes (12/12/2024 8:55 AM CDT) Central Macular Thickness OS 273 mircometers CONTINUUM [...] OD, thickened likely due to gliosis OS. us Paul Pickering MD PhD OPHTH TOMOGRAPHY Final Resul t * OCT, Optic Nerve - OU - Both Eyes (12/12/2024 8:55 AM CDT) RNFL OS 100 micrometers CONTINUUM RNFL OD 96 micrometers CONTINUUM Anatomical Region Laterality Modality Head Other Narrative 12/12/2024 10:16 AM CDT Right Eye Reliability was good. Average RNFL thickness 96 micrometers. Left Eye Reliability was good. Average RNFL thickness 100 micrometers. Notes Stable RNFL OU. us Paul Pickering MD PhD OPHTH TOMOGRAPHY Final Resul t * (ABNORMAL) Anti-double stranded DNA abs (11/28/2024 2:16 PM CDT) dsDNA Ab 7.0(H) <=4.0 IUnits/mL Comment: Interpretive Data Negative: < or = 4 IUnits/mL Indeterminate: 5 - 9 IUnits/mL Positive: > or = 10 IUnits/mL Current interpretive data was last revised on 2016. Testing performed by: [facility], [address] [facility], [place]., [address] Blood 11/28/2024 2:16 PM CDT 11/28/2024 4:23 PM CDT Dipti Patterson NP LAB BLOOD ORDERABLES Fi nal Result Performing Organization Address [facility] de Phone Number JOLIE RICHMOND [address] [place] [facility]. [facility] [place] [address] * eGFR (11/28/2024 2:16 PM CDT) eGFR >90 >=60 mL/min/1. 73 m2 Comment: [...] was last reviewed 2021. Testing performed by: [facility], [address] [place] [facility], [place] [address] Blood 11/28/2024 2:16 PM CDT 11/28/2024 2:30 PM CDT Dipti Patterson NP LAB BLOOD ORDERABLES Fi nal Result Performing Organization Address [facility] Co de Phone Number JOLIE ZULUAGACH [address] [place] [facility]. [facility] [place] [address] * Differential, auto (11/28/2024 2:16 PM CDT) Neutrophil abs 6.29 1.50 - 6.50 K/cumm Comment:Testing performed by : [facility], [facility], [address] [place] [address] Imm gran abs 0.03 0.00 - 0.10 K/cumm CERNER BJWCH Comment:Testing performed by : [facility], [facility], [address] [place] [address] Lymphocyte abs 1.77 0.80 - 3.30 K/cumm CERNER BJWCH Comment:Testing performed by : [facility], [facility], [address] [place] [address] Monocyte abs 0.67 0.20 - 0.80 K/cumm CERNER BJWCH Comment:Testing performed by : [facility], [facility], [address] [place] [address] Eosinophil abs 0.10 0.00 - 0.50 K/cumm CERNER BJWCH Comment:Testing performed by : [facility], [facility], [address] [place] [address] Basophil abs 0.05 0.00 - 0.10 K/cumm CERNER BJWCH Comment:Testing performed by : [facility], [facility], [address] [place] [address] Neutrophil pct 70.6 % CERNER BJWCH Comment: Interpretive Data Percent cell count reference ranges are not reported, since discordance with absolute values may lead to misinterpretation of CBC data. Current Interpretive Data was last revised on 2017. Testing performed by: [facility], [facility], [address] [place] [address] Imm gran pct 0.3 % CERNER BJWCH Comment: Interpretive Data Percent cell count reference ranges are not reported, since discordance with absolute values may lead to misinterpretation of CBC data. Current Interpretive Data was last revised on 2017. Testing performed by: [facility], [facility], [address] [place] [address] Lymphocyte pct 19.9 % CERNER BJWCH Comment: Interpretive Data Percent cell count reference ranges are not reported, since discordance with absolute values may lead to misinterpretation of CBC data. Current Interpretive Data was last revised on 2017. Testing performed by: [facility], [facility], [address] [place] [address] Monocyte pct 7.5 % JOLIE HART Comment: Interpretive Data Percent cell count reference ranges are not reported, since discordance with absolute values may lead to misinterpretation of CBC data. Current Interpretive Data was last revised on 2017. Testing performed by: [facility], [facility], [address] [place] [address] Eosinophil pct 1.1 % JOLIE HART Comment: Interpretive Data Percent cell count reference ranges are not reported, since discordance with absolute values may lead to misinterpretation of CBC data. Current Interpretive Data was last revised on 2017. Testing performed by: [facility], [facility], [address] [place] [address] Basophil pct 0.6 % JOLIE HART Comment: Interpretive Data Percent cell count reference ranges are not reported, since discordance with absolute values may lead to misinterpretation of CBC data. Current Interpretive Data was last revised on 2017. Testing performed by: [facility], [facility], [address] [place] [address] Blood 11/28/2024 2:16 PM CDT 11/28/2024 2:17 PM CDT us Dipti Patterson NP LAB BLOOD ORDERABLES Fi nal Result JOLIE [facility] [address] [place] [facility]. Department of Care [place], [place] [id number] * C4 complement (11/28/2024 2:16 PM CDT) Complement C4 34 10 - 40 mg/dL Comment:Testing performed by : [facility], [facility] [facility], [place]., [address] Blood 11/28/2024 2:16 PM CDT 11/28/2024 6:18 PM CDT Dipti Patterson VASCULAR TECHNOLOGIST SONOGRAPHER LAB BLOOD ORDERABLES Fi nal Result JOLIE [facility] [address] [facility] [place] [address] * CBC with auto differential (11/28/2024 2:16 PM CDT) WBC 8.91 3.80 - 9.90 K/cumm Comment:Testing performed by : [place] [address], [address] [place] [address] Hgb 13.5 11.9 - 15.5 g/dL JOLIE RICHMOND Comment:Testing performed by : [place] [address], [address] [place] [address] Hct 40.5 35.6 - 45.5 % [facility] Comment:Testing performed by : [place] [address], [address] [place] [address] Plt 207 150 - 400 K/cumm JOLIE ZULUAGALEONEL Comment:Testing performed by : [place] [address], [address] [place] [address] MPV 10.2 9.1 - 12.3 fL JOLIE HART Comment:Testing performed by : [facility] 2, [address] [place] [address] RBC 4.67 3.90 - 5.20 M/cumm JOLIE HART Comment:Testing performed by : [facility] 2, [address] [place] [address] MCV 86.7 81.3 - 96.4 fL JOLIE HART Comment:Testing performed by : [facility] 2, [address] [place] [address] MCH 28.9 27.1 - 33.3 pg JOLIE HART Comment:Testing performed by : [facility], [facility], [address] [place] [address] MCHC 33.3 32.3 - 35.7 g/dL JOLIE HART Comment:Testing performed by : [facility], [facility], [address] [place] [address] RDW CV 13.6 11.1 - 14.9 % JOLIE HART Comment:Testing performed by : [facility], [facility], [address] [place] [address] RDW SD 42.7 35.7 - 48.1 fL JOLIE HART Comment:Testing performed by : [facility], [facility], [address] [place] [address] ANC Prelim 6.29 1.50 - 6.50 K/cumm JOLIE HART Comment: Interpretive Data The rapid ANC is a preliminary automated count and may vary from the final ANC (Neut Abs) reported in the WBC differential that follows. Current interpretive data was last revised 2024. Testing performed by: [facility], [facility], [address] [place] [address] Blood 11/28/2024 2:16 PM CDT 11/28/2024 2:17 PM CDT Dipti Patterson VASCULAR TECHNOLOGIST SONOGRAPHER LAB BLOOD ORDERABLES nal Result JOLIE ZULUAGAWCH [address] [place] [address] * Erythrocyte sedimentation rate (11/28/2024 2:16 PM CDT) Erythrocyte sedimentation rate 1 1 - 20 mm/hr Comment:Testing performed by : [facility], [address] [place] [address] Blood 11/28/2024 2:16 PM CDT 11/28/2024 2:55 PM CDT us Dipti Patterson VASCULAR TECHNOLOGIST SONOGRAPHER LAB BLOOD ORDERABLES Fi nal Result Performing Organization Address [facility] Co de Phone Number JOLIE RICHMONDCH [address] [place] [facility]. [facility] [place] [address] * C3 complement (11/28/2024 2:16 PM CDT) Complement C3 151 90 - 180 mg/dL Comment:Testing performed by : [facility], [facility] [facility], [place]., [address] Blood 11/28/2024 2:16 PM CDT 11/28/2024 6:18 PM CDT us Dipti Patterson VASCULAR TECHNOLOGIST SONOGRAPHER LAB BLOOD ORDERABLES Fi nal Result Performing Organization Address [facility] de Phone Number JOLIE ZULUAGACH [address] [place] [facility]. [place] [address] * (ABNORMAL) CRP (acute phase) (11/28/2024 2:16 PM CDT) Pathologist [facility] CRP 12.1(H) <=10.0 mg/L Comment:Testing performed by : [facility], [address] [place] [address] Blood 11/28/2024 2:16 PM CDT 11/28/2024 2:30 PM CDT us Dipti Patterson VASCULAR TECHNOLOGIST SONOGRAPHER LAB BLOOD ORDERABLES Ed ited Result - Final Performing Organization Address [facility] Co de Phone Number JOLIE ZULUAGACH [address] [place] [address] * (ABNORMAL) Comprehensive metabolic panel (11/28/2024 2:16 PM CDT) Sodium 140 135 - 145 mmol/L Comment:Testing performed by : [facility], [address], [place] [address] Potassium, pl 4.0 3.3 - 4.9 mmol/L CERNER BJWCH Comment:Testing performed by : [facility], [address], [place] [address] Chloride 108 97 - 110 mmol/L CERNER BJWCH Comment:Testing performed by : [facility], [address], [place] [address] CO2 19(L) 22 - 32 mmol/L CERNER BJWCH Comment:Testing performed by : [facility], [address], [place] [address] Anion gap 14 2 - 15 mmol/L CERNER BJWCH Comment:Testing performed by : [facility], [address], [place] [address] BUN 17 6 - 25 mg/dL CERNER BJWCH Comment:Testing performed by : [facility], [address], [place] [address] Creatinine 0.83 0.60 - 1.10 mg/dL CERNER BJWCH Comment:Testing performed by : [facility], [address], [place] [address] Glucose 93 70 - 199 mg/dL CERNER [...] was last revised 2022. Testing performed by: [facility], [address], [place] [address] Calcium 8.9 8.5 - 10.3 mg/dL CERNER BJWCH Comment:Testing performed by : [facility], [address], [place] [address] Bilirubin, total 0.2 0.1 - 1.2 mg/dL CERNER BJW Comment:Testing performed by : [facility], [address], [place] [address] Protein, pl 7.0 6.5 - 8.5 g/dL CERNER BJWCH Comment:Testing performed by : [facility], [address], [place] [address] Albumin 4.0 3.5 - 5.0 g/dL CERNER BJWCH Comment:Testing performed by : [facility], [address], [place] [address] Alk phos 63 40 - 130 Units/L CERNER BJWCH Comment:Testing performed by : [facility], [address], [place] [address] ALT 42 7 - 45 Units/L CERNER BJWCH Comment:Testing performed by : [facility], [address], [place] [address] AST 18 10 - 45 Units/L CERNER BJW Comment:Testing performed by : [facility], [address], [place] [address] Blood 11/28/2024 2:16 PM CDT 11/28/2024 2:30 PM CDT Dipti Patterson VASCULAR TECHNOLOGIST SONOGRAPHER LAB BLOOD ORDERABLES Ed ited Result - Final JOLIE ZULUAGACH [address] [place] [address] * OCT, Retina - OU - Both [...] OS. Normal macular and GCC thickness OU. Paul Pickering MD PhD OPHTH TOMOGRAPHY [...] - Final from Last 3 Months Insurance [facility] PL[facility] PL[employer] Care Teams Bench Molder Apprentice Relationship Specialty Start Date End Date Tiffany Kay PA [address] [place], [place] [id number] PCP - General Physician Industrial Retrofit Designer 02/17/24
--- OUTSIDE RECORDS SUMMARY | 2024-12-15 01:57 | XMS_ITS | Encounter Summary ---
Author Organization [facility] Address [address] [place] [address] Phone Care Team Providers Care Handle And Vent Machine Operator Name Role Phone PaulantoinetteTiffany Primary Care Pr ovider Encounter Details Date Type Department Care Team (Late st Contact Info) Description 11/29/2024 Results Follow-Up [facility] Rheumatology [address] [facility] Medical Office Building [address] [place] [address] Dipti Patterson, HAR[place] [address] [place] [address] Anti-double stranded DNA abs, C4 complement, C3 complement, Additional followed-up results: 6 Social History Tobacco Use Types Packs/Day Years [...] CDT Gender Identity Female 07/10/2021 12:30 PM CART DRIVER Sexual Orientation Straight 07/10/2021 12 :30 PM CART DRIVER documented as of this encounter Plan of Treatment Not on file documented as of this encounter Visit Diagnoses Not on filedocumented in this encounter Care Teams Handle And Vent Machine Operator Relationship Specialty Start Date End Date Tiffany Kay PA [address] [place] [address] PCP - General Physician Automobile Radiator Mechanic 02/17/24 documented as of this encounter
--- OUTSIDE RECORDS SUMMARY | 2024-12-15 01:57 | XMS_ITS | Data Portability ---
Author Organization [facility] [place], Main Office Address [address] [place] [address] Assessment Encounter Date Assessment Date Assessment LastModified by Organization Details LastModified Time 12/15/2022 12/15/2022 >30 minutes spent in direct face to face patient care [email or web address] Not available 12/15/2022 16:14:21 Plan of Treatment Reminders Order Date Submit Date Provider Last Modified By Organization Details Last Modified Time Details Appointments None recorded. Lab glycohemog lobin, total, blood 2023 024 [email or web address] Not available 4 08:14:56 BMP, serum or plasma 2023 024 AKIRA Not available 4 08:23:49 vitamin D3, 25-hydroxy , serum 2023 024 [email or web address] Not available 4 08:14:56 lipid panel, serum 2023 024 AKIRA Not available 4 08:23:52 hepatic function panel, serum 2023 024 AKIRA Not available 4 08:23:51 TSH, serum or plasma 2023 024 [email or web address] Not available 4 08:14:56 T4, free, serum 2023 024 AKIRA Not available 4 08:23:54 urinalysis , dipstick 2022 023 [facility] [address], [place], [address], 3 15:33:23 urinalysis complete, reflex culture [address] (Lab), [address] [place], [address], 3 15:34:24 urinalysis , dipstick [address] [facility] [place], [address] [place] [address] [address], [place], [address], 3 16:13:34 lipid panel, serum [address] (Lab), [address] [place], [address], 3 16:16:32 CMP, serum or plasma [address] (Lab), [address] [place], [address], 3 16:15:51 HbA1c (hemoglobi n A1c), blood [address] (Lab), [address] [place], [address], 3 16:16:08 Referral endocrinol ogy referral - Please call patient to schedule an appointmen t. 2023 024 [email or web address] [facility], [address], [address], [place], [address], 4 09:09:41 Procedures None recorded. Surgeries None recorded. Imaging US, transvagin al 2022 023 [email or web address] [address] [facility], [address], [place], [address], 3 11:07:52 Medication Orders Zepbound 7.5 mg/0.5 mL subcutaneo us pen injector 2023 024 [id number] [address] [place], [address], 4 14:15:49 clindamyci n 1 % lotion 2022 023 [id number] [address] [place], [address], 3 11:59:59 Unithroid 75 mcg tablet 2022 023 [id number] [address] [place], [address], 3 11:58:46 prednisone 20 mg tablet 2022 [email or web address] [id number] [place], [address], 3 11:30:05 Patient TargetsNo targets recorded. Patient Instructions Encounter Date Encounter Id Patient Instructions Last Modified By Organization Details Last Modified Time 12/15/2022 [id number] plantar fasciitis: exercises Not available 12/15/2022 15:08:33 Reason for Referral Endocrinology Referral for H ypothyroidism Please call patient to schedule an appointment. Referring Physician: Bebe Bullock, Family Medicine, Encounter Date: 10/11/2023 Results Created Date Observation Date Name Description Value Unit Range Abnormal Flag Note LastModifiedBy Organization Detail LastModifiedTime 10/07/1910/07/2022 LIPID PANEL , STAND SAUL cholesterol, total 190 mg/dL <200 normal Not Available [facility] [address] [place], [address], 10/07/2022 13:01:07 10/07/1910/07/2022 LIPID PANEL , STAND SAUL HDL cholesterol 57 mg/dL > or = 50 normal Not Available [address] [address] [address] [place], [address], 10/07/2022 13:01:07 10/07/19 23 10/07/2022 LIPID PANEL , STAND SAUL triglyceride s 155 mg/dL <150 high Not Available [facility] [address] [address] [place], [address], 10/07/2022 13:01:07 10/07/19 23 10/07/2022 LIPID PANEL , STAND SAUL LDL-choleste rol 106 mg/dL _(og c) high Refer ence range : <100 Radames able range <100 mg/dL for prima ry preve ntion ; <70 mg/dL for patie nts with CHD or diabe tic patie nts with > or = 2 CHD risk facto rs. LDL-C is now calcu lated using the Ruba alonzo-Hop kins jnaes stapleton n, which is a valid ated novel facundo holcombte r accur acy than the Fried coty equat ion in the estim ation of LDL-C . Ruba alonzo SS et al. JAZMYNE. 2013; 310(1 9): 2061- 2068 (http ://ed ucati on.Zarina Olguin [employer] Booksir. com/f aq/FA Q164) Not Available [facility] [place] [address] [address] [place], [address], 10/07/2022 13:01:07 10/07/19 23 10/07/2022 LIPID PANEL , STAND SAUL chol/HDLC ratio 3.3 (calc ) <5.0 normal Not Available [facility] [place] [address] [place], [address], 10/07/2022 13:01:07 10/07/19 23 10/07/2022 LIPID PANEL , ST[place] SAUL non HDL cholesterol 133 mg/dL _(og c) <130 high For patie nts with diabe stephanie plus 1 major ASCVD risk facto r, treat ing to a non-H DL-C goal of <100 mg/dL (LDL- C of <70 mg/dL ) is consi dered a thera peuti c optio n. Not Available [address] [address] [place], [address], 10/07/2022 13:01:07 10/07/19 23 10/07/2022 COMPR EHENS ZHAO METAB OLIC PANEL glucose 92 mg/dL 65-99 normal Fasti ng refer ence inter soheial Not Available [address] [address] [place], [address], 10/07/2022 13:01:08 10/07/1910/07/2022 COMPR EHENS ZHAO METAB OLIC PANEL urea nitrogen (BUN) 11 mg/dL 7-25 normal Not Available [address], [address], 10/07/2022 13:01:08 10/07/1910/07/2022 COMPR EHENS ZHAO METAB OLIC PANEL creatinine 0.78 mg/dL 0.50-0 .97 normal Not Available [address] [address] [place], [address], 10/07/2022 13:01:08 10/07/19 23 10/07/2022 COMPR EHENS ZHAO METAB OLIC PANEL eGFR 100 mL/mi n/1.7 3m2 > or = 60 normal The eGFR is based on the CKD-E PI 2020 equat ion. To calcu late the new eGFR from a previ ous Creat inine or Cysta tin C resul t, go to https ://ishaan malloy.uriel man.o rosemarie/jaclyn valverde s/ kdoqi /gfr% 5Fcal culat or Not Available [address], [address], 10/07/2022 13:01:08 10/07/19 23 10/07/2022 COMPR EHENS ZHAO METAB OLIC PANEL BUN/creatini ne ratio NOT APPLIC ABLE (calc ) 6-22 Not Available [facility] [address], [address], 10/07/2022 13:01:08 10/07/19 23 10/07/2022 COMPR EHENS ZHAO METAB OLIC PANEL sodium 138 mmol/ L 135-14 6 normal Not Available [address], [address], 10/07/2022 13:01:08 10/07/19 23 10/07/2022 COMPR EHENS ZHAO METAB OLIC PANEL potassium 3.9 mmol/ L 3.5-5. 3 normal Not Available [address], [address], 10/07/2022 13:01:08 10/07/1910/07/2022 COMPR EHENS ZHAO METAB OLIC PANEL chloride 103 mmol/ L 98-110 normal Not Available [address], [address], 10/07/2022 13:01:08 10/07/19 23 10/07/2022 COMPR EHENS ZHAO METAB OLIC PANEL carbon dioxide 26 mmol/ L 20-32 normal Not Available [address], [address], 10/07/2022 13:01:08 10/07/19 23 10/07/2022 COMPR EHENS ZHAO METAB OLIC PANEL calcium 9.5 mg/dL 8.6-10 .2 normal Not Available [address], [address], 10/07/2022 13:01:08 10/07/19 23 10/07/2022 COMPR EHENS ZHAO METAB OLIC PANEL protein, total 6.8 g/dL 6.1-8. 1 normal Not Available [address], [address], 10/07/2022 13:01:08 10/07/19 23 10/07/2022 COMPR EHENS ZHAO METAB OLIC PANEL albumin 4.2 g/dL 3.6-5. 1 normal Not Available [address], [address], 10/07/2022 13:01:08 10/07/19 23 10/07/2022 COMPR EHENS ZHAO METAB OLIC PANEL globulin 2.6 g/dL_ (calc ) 1.9-3. 7 normal Not Available [address], [address], 10/07/2022 13:01:08 10/07/1910/07/2022 COMPR EHENS ZHAO METAB OLIC PANEL albumin/glob ulin ratio 1.6 (calc ) 1.0-2. 5 normal Not Available [address], [address], 10/07/2022 13:01:08 10/07/19 23 10/07/2022 COMPR EHENS ZHAO METAB OLIC PANEL bilirubin, total 0.3 mg/dL 0.2-1. 2 normal Not Available [address], [address], 10/07/2022 13:01:08 10/07/19 23 10/07/2022 COMPR EHENS ZHAO METAB OLIC PANEL alkaline phosphatase 56 U/L 31-125 normal Not Available [address], [address], 10/07/2022 13:01:08 10/07/19 23 10/07/2022 COMPR EHENS ZHAO METAB OLIC PANEL AST 17 U/L 10-30 normal Not Available [address], [address], 10/07/2022 13:01:08 10/07/19 23 10/07/2022 COMPR EHENS ZHAO METAB OLIC PANEL ALT 23 U/L 6-29 normal Not Available [address] [place], [address], 10/07/2022 13:01:08 10/07/19 23 10/07/2022 CLIEN T EDUCA TION TRACK ING client education tracking The Requi sitio n we recei melanie did not inclu de a [facility] nt numbe r. To preve nt delay s in testi ng and proce ssing of your order s pleas e provi de the follo wing infor matio n with every order submi tted: [facility] accou nt numbe r and accou nt name Clien t addre ss Clien t phone and fax numbe r NPI numbe r of order ing physi rosemary along with the physi rosemary name. Not Available [facility] [address] [address], [place], [address], 10/07/2022 13:01:09 10/07/19 23 10/07/2022 HEMOG LOBIN A1C hemoglobin A1C 5.2 %_of_ total _HGB <5.7 normal For the purpo se of scree leni for the prese nce of diabe stephanie: <5.7% Consi stent with the absen ce of diabe stephanie 5.7-6 .4% Consi stent with incre ased risk for diabe stephanie (pred iabet es) > or =6.5% Consi stent with diabe stephanie This assay resul t is consi stent with a decre ased risk of diabe stephanie. Curre ntly, no conse nsus exist s brittany ariza use of hemog lobin A1c for diagn osis of diabe stephanie in child griselda. Accor ding to Ameri can Diabe stephanie Assoc iatio n (ADA) guide lines , hemog lobin A1c <7.0% repre sents optim al contr ol in non-p regna nt diabe tic patie nts. Diffe rent metri cs may apply to speci fic patie nt popul ation s. Stand ards of Medic al Care in Diabe stephanie(A DA). Not Available [facility] [address] [place], [address], 10/07/2022 13:01:09 10/07/19 23 10/06/2022 urina lysis , dipst ick Leukocytes (reference range: negative debra/ l) Negati ve Not Available [address], [place], [address], 10/06/2022 10:06:37 10/07/19 23 10/06/2022 urina lysis , dipst ick Nitrite (reference rage: negative mg/dl) negati ve Not Available [address], [place], [address], 10/06/2022 10:06:37 10/07/19 23 10/06/2022 urina lysis , dipst ick Urobilinogen (reference range: 0.2-1 mg/dl) 0.2 Not Available [address], [place], [address], 10/06/2022 10:06:37 10/07/19 23 10/06/2022 urina lysis , dipst ick Protein (reference range: negative mg/dl) Negati ve Not Available [address], [place], [address], 10/06/2022 10:06:37 10/07/19 23 10/06/2022 urina lysis , dipst ick pH (reference range: 5-7) 7.0 Not Available [address], [place], [address], 10/06/2022 10:06:37 10/07/19 23 10/06/2022 urina lysis , dipst ick Blood (reference range: negative Pop/ l) Negati ve Not Available [address], [place], [address], 10/06/2022 10:06:37 10/07/19 23 10/06/2022 urina lysis , dipst ick Specific Bomoseen (reference range: 1.005-1.030) 1.015 Not Available [address], [place], [address], 10/06/2022 10:06:37 10/07/19 23 10/06/2022 urina lysis , dipst ick Ketone (reference range: negative mg/dl) Negati ve Not Available [address], [place], [address], 10/06/2022 10:06:37 10/07/1910/06/2022 urina lysis , dipst ick Bilirubin (reference range: negative mg/dl) Negati ve Not Available [address], [place], [address], 10/06/2022 10:06:37 10/07/19 23 10/06/2022 urina lysis , dipst ick Glucose (reference range: negative mg/dl) Negati ve Not Available [address], [place], [address], 10/06/2022 10:06:37 10/07/19 23 10/06/2022 urina lysis , dipst ick Appearance Clear Not Available [address], [place], [address], 10/06/2022 10:06:37 10/07/1910/06/2022 urina lysis , dipst ick Color Pale Yellow Not Available [address], [place], [address], 10/06/2022 10:06:37 12/16/19 23 12/17/2022 UA/M W/RFL X CULTU RE, ROUTI NE specific gravity 1.015 1.005- 1.030 Not Available [facility] ([facility]) [address] [place], [address], 12/25/2022 14:12:44 12/16/19 23 12/17/2022 UA/M W/RFL X CULTU RE, ROUTI NE pH 5.5 5.0-7. 5 Not Available [facility] ([facility]) [address] [place], [address], 12/25/2022 14:12:44 12/16/19 23 12/17/2022 UA/M W/RFL X CULTU RE, ROUTI NE urine-color YELLOW yellow Not Available [facility] ([facility]) [address] [facility], [place], [address], 12/25/2022 14:12:44 12/16/19 23 12/17/2022 UA/M W/RFL X CULTU RE, ROUTI NE appearance CLOUDY clear abnormal Not Available [facility] ([facility]) [address] [facility], [place], [address], 12/25/2022 14:12:44 12/16/19 23 12/17/2022 UA/M W/RFL X CULTU RE, ROUTI NE WBC esterase TRACE negati ve abnormal Not Available [facility] ([facility]) [address] [place], [address], 12/25/2022 14:12:44 12/16/19 23 12/17/2022 UA/M W/RFL X CULTU RE, ROUTI NE protein NEGATI VE negati ve/tra ce Not Available [facility] ([facility]) [address] [place], [address], 12/25/2022 14:12:44 12/16/19 23 12/17/2022 UA/M W/RFL X CULTU RE, ROUTI NE glucose NEGATI VE negati ve Not Available [facility] ([facility]) [address] [place], [address], 12/25/2022 14:12:44 12/16/19 23 12/17/2022 UA/M W/RFL X CULTU RE, ROUTI NE ketones NEGATI VE negati ve Not Available [facility] ([facility]) [address] [facility], [place], [address], 12/25/2022 14:12:44 12/16/19 23 12/17/2022 UA/M W/RFL X CULTU RE, ROUTI NE occult blood NEGATI VE negati ve Not Available [facility] ([facility]) [address] [facility], [place], [address], 12/25/2022 14:12:44 12/16/19 23 12/17/2022 UA/M W/RFL X CULTU RE, ROUTI NE bilirubin NEGATI VE negati ve Not Available [facility] ([facility]) [address] [place], [address], 12/25/2022 14:12:44 12/16/19 23 12/17/2022 UA/M W/RFL X CULTU RE, ROUTI NE urobilinogen ,semi-qn 0.2 mg/dL 0.2-1. 0 Not Available [facility] ([facility]) [address] [place], [address], 12/25/2022 14:12:44 12/16/19 23 12/17/2022 UA/M W/RFL X CULTU RE, ROUTI NE nitrite, urine POSITI VE negati ve abnormal Not Available [facility] ([facility]) [address] [place], [address], 12/25/2022 14:12:44 12/16/19 23 12/17/2022 UA/M W/RFL X CULTU RE, ROUTI NE microscopic examination SEE BELOW: Micro scopi c was indic ated and was perfo rmed. Not Available [facility] ([facility]) [address] [facility], [place], [address], 12/25/2022 14:12:44 12/16/19 23 12/17/2022 UA/M W/RFL X CULTU RE, ROUTI NE WBC 6-10 /hpf 0 - 5 abnormal Not Available [facility] ([facility]) [address] [facility], [place], [address], 12/25/2022 14:12:44 12/16/19 23 12/17/2022 UA/M W/RFL X CULTU RE, ROUTI NE RBC NONE SEEN /hpf 0 - 2 Not Available [facility] ([facility]) [address] [facility], [place], [address], 12/25/2022 14:12:44 12/16/19 23 12/17/2022 UA/M W/RFL X CULTU RE, ROUTI NE epithelial cells (non renal) 0-10 /hpf 0 - 10 Not Available [facility] ([facility]) [address] [facility], [place], [address], 12/25/2022 14:12:44 12/16/19 23 12/17/2022 UA/M W/RFL X CULTU RE, ROUTI NE epithelial cells (renal) HIM DIRECTOR Not Available [facility] ([facility]) [address] [facility], [place], [address], 12/25/2022 14:12:44 12/16/19 23 12/17/2022 UA/M W/RFL X CULTU RE, ROUTI NE casts NONE SEEN /lpf none seen Not Available [facility] ([facility]) [address] [facility], [place], [address], 12/25/2022 14:12:44 12/16/19 23 12/17/2022 UA/M W/RFL X CULTU RE, ROUTI NE cast type HIM DIRECTOR Not Available [facility] ([facility]) [address] [facility], [place], [address], 12/25/2022 14:12:44 12/16/19 23 12/17/2022 UA/M W/RFL X CULTU RECHANOI NE crystals HIM DIRECTOR Not Available [facility] ([facility]) [address] [facility], [place], [address], 12/25/2022 14:12:44 12/16/19 23 12/17/2022 UA/M W/RFL X CULTU RE, ROUTI NE crystal type HIM DIRECTOR Not Available [facility] [address] [facility], [place], [address], 12/25/2022 14:12:44 12/16/19 23 12/17/2022 UA/M W/RFL X CULTU RE, ROUTI NE mucus threads HIM DIRECTOR Not Available [facility] ([facility]) [address] [facility], [place], [address], 12/25/2022 14:12:44 12/16/19 23 12/17/2022 UA/M W/RFL X CULTU RE ROUTI NE bacteria MANY none seen/f ew abnormal Not Available [facility] ([facility]) [address] [facility], [place], [address], 12/25/2022 14:12:44 12/16/19 23 12/17/2022 UA/M W/RFL X CULTU RE ROUTI NE yeast HIM DIRECTOR Not Available [facility] ([facility]) [address] [place], [address], 12/25/2022 14:12:44 12/16/19 23 12/17/2022 UA/M W/RFL X CULTU RE ROUTI NE trichomonas HIM DIRECTOR Not Available [facility] [address] [facility], [place], [address], 12/25/2022 14:12:44 12/16/19 23 12/17/2022 UA/M W/RFL X CULTU RE, ROUTI NE comment HIM DIRECTOR Not Available [facility] ([facility]) [address] [facility], [place], [address], 12/25/2022 14:12:44 12/16/19 23 12/17/2022 UA/M W/RFL X CULTU RE, ROUTI NE microscopic examination HIM DIRECTOR Not Available [facility] [address] [facility], [place], [address], 12/25/2022 14:12:44 12/16/19 23 12/17/2022 UA/M W/RFL X CULTU RE, ROUTI NE urinalysis reflex COMMEN T This speci men has refle xed to a Urine Cultu re. Not Available [facility] ([facility]) [address] [facility], [place], [address], 12/25/2022 14:12:44 12/16/19 23 12/25/2022 UA/M W/RFL X CULTU RE, ROUTI NE urine culture, routine FINAL REPORT abnormal Not Available [facility] ([facility]) [address] [facility], [place], [address], 12/25/2022 14:12:44 12/16/19 23 12/25/2022 UA/M W/RFL X CULTU RE, ROUTI NE result 1 KLEBSI EMILY PNEUMO NIAE abnormal Great er than 100,0 00 colon y formi ng units per mL Cefaz ivana <=4 ug/mL Cefaz ivana with an AXEL <=16 predi cts susce ptibi lity to the oral agent s cefac nguyen, cefdi christian, cefpo doxim e, cefpr ozil, cefur oxime , cepha lexin , and lorac arbef when used for thera py of uncom plica danie urina ry tract infec tions due to E. coli, Klebs iella pneum oniae , and Prote us mirab ilis. Not Available [facility] ([facility]) [address] [facility], [place], [address], 12/25/2022 14:12:44 12/16/19 23 12/25/2022 UA/M W/RFL X CULTU RE, ROUTI NE antimicrobia l susceptibili ty COMMEN T S = Susce ptibl e; I = Inter media te; R = Resis tant P = Posit zhao; N = Negat zhao MICS are expre ssed in micro grams per mL Antib iotic RSLT# 1 RSLT# 2 RSLT# 3 RSLT# 4 Amoxi cilli n/Cla vulan ic Acid S Ampic illin R Cefep og S Ceftr iaxon e S Cefur oxime S Cipro floxa hermes S Ertap enem S Genta micin S Imipe nem S Levof loxac in S Merop enem S Nitro furan toin S Piper acill in/Ta zobac velazquez S Tetra cycli ne S Tobra mycin S Trime thopr im/Shukla lfa S Not Available [facility] ([facility]) [address] [facility], [place], [address], 12/25/2022 14:12:44 12/16/19 23 12/16/2022 DEJUAN EN AUTHO RIZAT ION written authorizatio n Commen t Dejuan en Autho rizat ion Recei melanie. Autho rizat ion recei melanie from PER ORIGI NAL ORDER 12-16 Logge d by Razia root Not Available [facility] ([facility]) [address] [facility], [place], [address], 12/25/2022 14:12:45 12/16/19 23 12/15/2022 urina lysis , dipst ick Leukocytes (reference range: negative debra/ l) Trace Not Available [facility] [address], [place], [address], 12/15/2022 15:00:57 12/16/19 23 12/15/2022 urina lysis , dipst ick Nitrite (reference rage: negative mg/dl) negati ve Not Available [facility] [place] [address], [place], [address], 12/15/2022 15:00:57 12/16/1912/15/2022 urina lysis , dipst ick Urobilinogen (reference range: 0.2-1 mg/dl) 0.2 Not Available [address], [place], [address], 12/15/2022 15:00:57 12/16/1912/15/2022 urina lysis , dipst ick Protein (reference range: negative mg/dl) Negati ve Not Available [address], [place], [address], 12/15/2022 15:00:57 12/16/1912/15/2022 urina lysis , dipst ick pH (reference range: 5-7) 6.0 Not Available [address], [place], [address], 12/15/2022 15:00:57 12/16/1912/15/2022 urina lysis , dipst ick Blood (reference range: negative Pop/ l) Negati ve Not Available [address], [place], [address], 12/15/2022 15:00:57 12/16/1912/15/2022 urina lysis , dipst ick Specific Bomoseen (reference range: 1.005-1.030) 1.020 Not Available [address], [place], [address], 12/15/2022 15:00:57 12/16/19 23 12/15/2022 urina lysis , dipst ick Ketone (reference range: negative mg/dl) Negati ve Not Available [address], [place], [address], 12/15/2022 15:00:57 12/16/1912/15/2022 urina lysis , dipst ick Bilirubin (reference range: negative mg/dl) Negati ve Not Available [address], [place], [address], 12/15/2022 15:00:57 12/16/1912/15/2022 urina lysis , dipst ick Glucose (reference range: negative mg/dl) Negati ve Not Available [address], [place], [address], 12/15/2022 15:00:57 12/16/19 23 12/15/2022 urina lysis , dipst ick Appearance Clear Not Available [address], [place], [address], 12/15/2022 15:00:57 12/16/1912/15/2022 urina lysis , dipst ick Color Yellow Not Available [address], [place], [address], 12/15/2022 15:00:57 10/11/19 24 10/12/2023 BASIC METAB OLIC PANEL (8) glucose 84 mg/dL 70-99 Not Available [facility] ([facility]) [address] [facility], [place], [address], 10/12/2023 08:23:49 10/11/19 24 10/12/2023 BASIC METAB OLIC PANEL (8) BUN 14 mg/dL 6-20 Not Available [facility] ([facility]) [address] [facility], [place], [address], 10/12/2023 08:23:49 10/11/19 24 10/12/2023 BASIC METAB OLIC PANEL (8) creatinine 0.80 mg/dL 0.57-1 .00 Not Available [facility] ([facility]) [address] [place], [address], 10/12/2023 08:23:49 10/11/19 24 10/12/2023 BASIC METAB OLIC PANEL (8) eGFR 97 mL/mi n/1.7 3 >59 Not Available [facility] ([facility]) [address] [place], [address], 10/12/2023 08:23:49 10/11/19 24 10/12/2023 BASIC METAB OLIC PANEL (8) BUN/creatini ne ratio 18 - Not Available [facility] ([facility]) [address] [place], [address], 10/12/2023 08:23:49 10/11/19 24 10/12/2023 BASIC METAB OLIC PANEL (8) sodium 140 mmol/ L 134-14 4 Not Available [facility] ([facility]) [address] [place], [address], 10/12/2023 08:23:49 10/11/19 24 10/12/2023 BASIC METAB OLIC PANEL (8) potassium 4.0 mmol/ L 3.5-5. 2 Not Available [facility] ([facility]) [address] [place], [address], 10/12/2023 08:23:49 10/11/19 24 10/12/2023 BASIC METAB OLIC PANEL (8) chloride 103 mmol/ L 96-106 Not Available [facility] ([facility]) [address] [place], [address], 10/12/2023 08:23:49 10/11/19 24 10/12/2023 BASIC METAB OLIC PANEL (8) carbon dioxide, total 22 mmol/ L 20-29 Not Available [facility] ([facility]) [address] [place], [address], 10/12/2023 08:23:49 10/11/19 24 10/12/2023 BASIC METAB OLIC PANEL (8) calcium 9.6 mg/dL 8.7-10 .2 Not Available [facility] ([facility]) [address] [facility], [address], 10/12/2023 08:23:49 10/11/19 24 10/12/2023 HEPAT IC FUNCT ION PANEL (7) protein, total 6.8 g/dL 6.0-8. 5 Not Available [facility] ([facility]) [address] [place], [address], 10/12/2023 08:23:51 10/11/19 24 10/12/2023 HEPAT IC FUNCT ION PANEL (7) albumin 4.3 g/dL 3.9-4. 9 Not Available [facility] ([facility]) [address] [place], [address], 10/12/2023 08:23:51 10/11/19 24 10/12/2023 HEPAT IC FUNCT ION PANEL (7) bilirubin, total <0.2 mg/dL 0.0-1. 2 Not Available [facility] ([facility]) [address] [place], [address], 10/12/2023 08:23:51 10/11/19 24 10/12/2023 HEPAT IC FUNCT ION PANEL (7) bilirubin, direct <0.10 mg/dL 0.00-0 .40 Not Available [facility] ([facility]) [address] [facility] [place], [address], 10/12/2023 08:23:51 10/11/19 24 10/12/2023 HEPAT IC FUNCT ION PANEL (7) alkaline phosphatase 68 IU/L 44-121 Not Available [facility] ([facility]) [address] [facility], [place], [address], 10/12/2023 08:23:51 10/11/19 24 10/12/2023 HEPAT IC FUNCT ION PANEL (7) AST (SGOT) 15 IU/L 0-40 Not Available [facility] ([facility]) [address] [place], [address], 10/12/2023 08:23:51 10/11/19 24 10/12/2023 HEPAT IC FUNCT ION PANEL (7) ALT (SGPT) 15 IU/L 0-32 Not Available [facility] ([facility]) [address] [place], [address], 10/12/2023 08:23:51 10/11/19 24 10/12/2023 LIPID PANEL cholesterol, total 197 mg/dL 100-19 9 Not Available [facility] ([facility]) [address] [place], [address], 10/12/2023 08:23:52 10/11/19 24 10/12/2023 LIPID PANEL triglyceride s 212 mg/dL 0-149 above high normal Not Available [facility] ([facility]) [address] [place], [address], 10/12/2023 08:23:52 10/11/19 24 10/12/2023 LIPID PANEL HDL cholesterol 44 mg/dL >39 Not Available [facility] ([facility]) [address] [place], [address], 10/12/2023 08:23:52 10/11/19 24 10/12/2023 LIPID PANEL VLDL cholesterol og 37 mg/dL 5-40 Not Available [facility] ([facility]) [address] [place], [address], 10/12/2023 08:23:52 10/11/19 24 10/12/2023 LIPID PANEL LDL chol calc (rust) 116 mg/dL 0-99 above high normal Not Available [facility] ([facility]) [address] [facility], [place], [address], 10/12/2023 08:23:52 10/11/19 24 10/12/2023 LIPID PANEL comment: HIM DIRECTOR Not Available [facility] ([facility]) [address] [facility], [place], [address], 10/12/2023 08:23:52 10/11/19 24 10/12/2023 TSH TSH 1.090 uIU/m L 0.450- 4.500 Not Available [facility] ([facility]) [address] [place], [address], 10/12/2023 08:23:53 10/11/19 24 10/12/2023 THYRO XINE (T4) FREE, DIREC T T4,free(dire ct) 1.27 NG/dL 0.82-1 .77 Not Available [facility] ([facility]) [address] [facility], [place], [address], 10/12/2023 08:23:54 10/11/19 24 10/12/2023 VITAM IN D, 25-HY DROXY vitamin D, 25-hydroxy 37.2 NG/mL 30.0-1 00.0 Vitam in D defic iency has been defin ed by the Insti tute of Medic ine and an Endoc rine Socie ty pract ice guide line as a level of serum 25-OH vitam in D less than 20 ng/mL (1,2) . The Endoc rine Socie ty went on to furth er defin e vitam in D insuf ficie ncy as a level betwe en 21 and 29 ng/mL (2). 1. IOM (Inst itute of Medic ine). 2010. Dieta ry refer ence veronika es for calci um and D. Mariana christensen [place]: The Natio nal [facility] Press . 2. Mirella nuñez MF, Binjason ey [place], Shakila off-F errar i LOPEZ, et al. Evalu ation , treat ment, and preve ntion of vitam in D defic iency : an Endoc rine Socie ty clini og pract ice guide line. JCEM. 2010; 96(7) :1911 -30. Not Available [facility] ([facility]) [address] [facility], [place], [address], 10/12/2023 08:23:54 10/11/19 24 10/12/2023 HEMOG LOBIN A1C hemoglobin A1C 5.5 % 4.8-5. 6 Predi abete s: 5.7 - 6.4 Diabe stephanie: >6.4 Glyce axel contr ol for adult s with diabe stephanie: <7.0 Not Available [facility] ([facility]) [address] [facility], [place], [address], 10/12/2023 08:23:55 10/11/19 24 10/11/2023 AMBIG ABBRE V LP DEFAU LT ambig abbrev LP default COMMEN T A hand- writt en panel /prof ile was recei melanie from your offic e. In accor dance with the [facility] Ambig uous Test Code Polic y dated January 2003, we have compl eted your order by using the close [facility] or [facility] recog nized AMA panel . We have assig soto Lipid Panel , Test Code #3037 [address]. If this is not the testi ng you wishe d to recei ve on this speci men, pleas e conta ct the [facility] Clien t Inqui ry/Te chnic al Servi estelle Depar tment to lucius fy the test order . We appre ciate your busin ess. Not Available [facility] ([facility]) [address] [facility], [place], [address], 10/12/2023 08:23:55 10/11/19 24 10/11/2023 AMBIG ABBRE V HFP7 DEFAU LT ambig abbrev hfp7 default Commen t A hand- writt en panel /prof ile was recei melanie from your offic e. In accor dance with the [facility] Ambig uous Test Code Polic y dated January 2003, we have compl eted your order by using the close st curre ntly or forme rly recog nized AMA panel . We have assmary valera Hepat ic Funct ion Panel (7), Test Code #3227 [address]. If this is not the testi ng you wishe d to recei ve on this speci men, pleas e conta ct the [facility] Clien t Inqui ry/Te chnic al Servi estelle Depar tment to lucius fy the test order . We appre ciate your busin ess. Not Available [facility] ([facility]) [address] [facility], [place], [address], 10/12/2023 08:23:56 10/11/1910/11/2023 ANAMIKA ABBRE V BMP8 DEFAU LT anamika abbrev BMP8 default Commen t A hand- writt en panel /prof ile was recei melanie from your offic e. In accor dance with the [facility] Anamika trevino Test Code Polic y dated January 2003, we have compl eted your order by using the close st curre ntly or forme rly recog nized AMA panel . We have assmary valera Basic Metab olic Panel (8), Test Code #3227 [address]. If this is not the testi ng you wishe d to recei ve on this speci men, pleas e conta ct the [facility] Clien t Inqui ry/Te chnic al Servi estelle Depar tment to lucius fy the test order . We appre ciate your busin ess. Not Available [facility] ([facility]) [address] [facility], [place], [address], 10/12/2023 08:23:57 12/21/1912/24/2023 UA WITH CULTU RE REFLE X specific gravity 1.022 1.005- 1.030 Not Available [facility] ([facility]) [address] [facility], [place], [address], 12/24/2023 14:13:00 12/21/19 24 12/24/2023 UA WITH CULTU RE REFLE X pH 5.0 5.0-7. 5 Not Available [facility] ([facility]) [address] [facility], [place], [address], 12/24/2023 14:13:00 12/21/19 24 12/24/2023 UA WITH CULTU RE REFLE X urine-color YELLOW yellow Not Available [facility] ([facility]) [address] [facility], [place], [address], 12/24/2023 14:13:00 12/21/19 24 12/24/2023 UA WITH CULTU RE REFLE X appearance TURBID clear abnormal Not Available [facility] ([facility]) [address] [facility], [place], [address], 12/24/2023 14:13:00 12/21/19 24 12/24/2023 UA WITH CULTU RE REFLE X WBC esterase NEGATI VE negati ve Not Available [facility] ([facility]) [address] [facility], [place], [address], 12/24/2023 14:13:00 12/21/19 24 12/24/2023 UA WITH CULTU RE REFLE X protein NEGATI VE negati ve/tra ce Not Available [facility] ([facility]) [address] [facility], [place], [address], 12/24/2023 14:13:00 12/21/19 24 12/24/2023 UA WITH CULTU RE REFLE X glucose NEGATI VE negati ve Not Available [facility] ([facility]) [address] [facility], [place], [address], 12/24/2023 14:13:00 12/21/19 24 12/24/2023 UA WITH CULTU RE REFLE X ketones NEGATI VE negati ve Not Available [facility] ([facility]) [address] [facility], [place], [address], 12/24/2023 14:13:00 12/21/19 24 12/24/2023 UA WITH CULTU RE REFLE X occult blood NEGATI VE negati ve Not Available [facility] ([facility]) [address] [facility], [place], [address], 12/24/2023 14:13:00 12/21/19 24 12/24/2023 UA WITH CULTU RE REFLE X bilirubin NEGATI VE negati ve Not Available [facility] ([facility]) [address] [facility], [place], [address], 12/24/2023 14:13:00 12/21/19 24 12/24/2023 UA WITH CULTU RE REFLE X urobilinogen ,semi-qn 0.2 mg/dL 0.2-1. 0 Not Available [facility] ([facility]) [address] [place], [address], 12/24/2023 14:13:00 12/21/19 24 12/24/2023 UA WITH CULTU RE REFLE X nitrite, urine NEGATI VE negati ve Not Available [facility] ([facility]) [address] [place], [address], 12/24/2023 14:13:00 12/21/19 24 12/24/2023 UA WITH CULTU RE REFLE X microscopic examination COMMEN T Micro scopi c not indic ated and not perfo rmed. Not Available [facility] ([facility]) [address] [place], [address], 12/24/2023 14:13:00 12/21/19 24 12/24/2023 UA WITH CULTU RE REFLE X urinalysis reflex COMMEN T This speci men will not refle x to a Urine Cultu re. Not Available [facility] ([facility]) [address] [place], [address], 12/24/2023 14:13:00 12/21/19 24 12/21/2023 urina lysis , dipst ick Leukocytes (reference range: negative debra/ l) Negati ve Not Available [address], [place], [address], 12/15/2023 16:25:53 12/21/19 24 12/21/2023 urina lysis , dipst ick Nitrite (reference rage: negative mg/dl) negati ve Not Available [address], [place], [address], 12/15/2023 16:25:53 12/21/19 24 12/21/2023 urina lysis , dipst ick Urobilinogen (reference range: 0.2-1 mg/dl) 0.2 Not Available [address], [place], [address], 12/15/2023 16:25:53 12/21/19 24 12/21/2023 urina lysis , dipst ick Protein (reference range: negative mg/dl) Trace Not Available [address], [place], [address], 12/15/2023 16:25:53 12/21/19 24 12/21/2023 urina lysis , dipst ick pH (reference range: 5-7) 5.5 Not Available [address], [place], [address], 12/15/2023 16:25:53 12/21/19 24 12/21/2023 urina lysis , dipst ick Blood (reference range: negative Pop/ l) Negati ve Not Available [address], [place], [address], 12/15/2023 16:25:53 12/21/19 24 12/21/2023 urina lysis , dipst ick Specific [place] (reference range: 1.005-1.030) 1.030 Not Available [address], [place], [address], 12/15/2023 16:25:53 12/21/19 24 12/21/2023 urina lysis , dipst ick Ketone (reference range: negative mg/dl) Negati ve Not Available [address], [place], [address], 12/15/2023 16:25:53 12/21/19 24 12/21/2023 urina lysis , dipst ick Bilirubin (reference range: negative mg/dl) Negati ve Not Available [address], [place], [address], 12/15/2023 16:25:53 12/21/19 24 12/21/2023 urina lysis , dipst ick Glucose (reference range: negative mg/dl) Negati ve Not Available [address], [place], [address], 12/15/2023 16:25:53 01/09/20 23 01/07/2023 US, trans vagin al No observ ation record ed. [facility] [address], [place], [address], 01/08/2023 16:20:41 01/23/20 24 01/23/2024 XR, foot, 3 or more view No observ ation record ed. [place] [id number], [place], [address], 02/07/2024 13:59:35 Result Notes None recorded. Problems Name Problem SNOMED Code Status Onset Date Resolution Date Notes Provider Name and Address Organization Details Recorded Time Anti-nucl ear factor detected 559310340 Active Not Available [facility] 3 00:53:53 Adjustmen t disorder 61085693 Active Not Available [facility] 3 00:53:53 Overweigh t 377624907 Active Not Available [facility] 3 00:53:53 Disorder of vitamin D 374345239 Active Not Available [facility] 3 00:53:53 Mixed collagen vascular disease 208065027 Active 2020 Not Available [facility] 3 00:53:53 Pre-eclam psia 946313529 Active Not Available [facility] 3 00:53:53 Hypothyro idism 97676877 Active 2019 Not Available [facility] 3 00:53:53 Obesity 475692795 Active Not Available [facility] 3 00:53:54 Eczema 45929435 Active Not Available [facility] 3 00:53:54 Gluten sensitivi ty 576796501 Active Not Available [facility] 3 00:53:54 Verruca vulgaris 87046597 Active Not Available [facility] 3 00:53:54 Viral meningiti s 63749276 Active Not Available [facility] 3 00:53:54 Polycysti c ovary 464841840 Completed 201903/11/2020 Not Available [facility] 3 00:53:54 Obstructi ve sleep apnea syndrome 49089973 Active Not Available [facility] 3 00:53:54 Fatigue 41086507 Active Not Available [facility] 3 00:53:54 Vitamin D deficienc y 27071604 Active 2022 BEN Escamilla [address], [place], [address] , [employer] [facility] [employer] [facility] [employer] 3 13:38:26 Dysuria 53578701 Active 2022 BEN Escamilla [address], [address], [place], [address] , [facility] [employer] [facility] 3 10:06:38 Polycysti c ovary syndrome 599714417 Active 2022 Daniela Gallo MD [address], [address], [place], [address] , [place] [facility] 3 17:13:55 Cyst of ovary 82799983 Active 2022 BEN Escamilla [address], [address], [place], [address] , [place] [facility] 3 14:54:45 Right flank pain 328750429 Active 2022 BEN Escamilla [address], [address], [place], [address] , [place] [facility] 3 15:01:11 Plantar fasciitis of left foot 22398071582 617878 Active 2022 BEN Escamilla [address], [address], [place], [address] , [place] [facility] 3 15:07:11 Acute urinary tract infection 140697289 Active 2022 BEN Escamilla [address], [address], [place], [address] , [place] [facility] 3 09:41:39 Folliculi tis 12820468 Active 2022 Daniela Gallo MD [address], [address], [place], [address] , [place] [facility] 3 11:58:56 Motion sickness 03709215 Active 2022 BEN Escamilla [address], [place], [address] , [place] [facility] 3 12:42:00 Hyperlipi demia 42604697 Active 2023 Bebe Bullock MD [address], [address], [place], [address] , [place] [facility] 4 14:20:19 Hyperglyc emia 65641449 Active 2023 Bebe Bullock MD [address], [place], [address] , [facility] [employer] [facility] [employer] [facility] 4 14:20:29 Migraine 38931393 Active 2023 Bebe Bullock MD [address], [place], [address] , [facility] [employer] [facility] [employer] [facility] 4 17:59:34 Notes: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 Procedures Surgical History Date Name Laterality Status Provider Name and Address Organization Details Recorded Time 04/23/20 23 partial hysterectomy completed Bebe Bullock MD [address], [place], [address], [facility] [employer] [facility] [employer] [facility] 10/11/2023 14:06:17 02/23/20 13 delivery completed Not Available [facility] 00:46:51 revision of tympanoplasty completed Not Available [facility] 09/23/2022 00:46:51 Ear completed Not Available [facility] 07/2022 00:46:51 Imaging Results None recorded. Procedure Notes None recorded. Medical Equipment None Reported. Allergies No known drug allergies Medications Name Sig Start Date Stop Date Status Note LastModified by Organization Details LastModified Time celecoxib 200 mg capsule TAKE 1 CAPSULE BY MOUTH TWICE A DAY WITH FOOD active Not Available Not Available No t Available amoxicillin 500 mg capsule Take 1 capsule every 12 hours by oral route for 10 days. active Not Available Not Available No t Available metformin 500 mg tablet Take 2 tablets twice a day by oral route. 01/10 completed Not Available Not Available Not Available azithromyci n 250 mg tablet active Not Available Not Available Not Available ibuprofen 800 mg tablet TK 1 T PO TID PRN 09/16 completed Not Available Not Available Not Available benzonatate 200 mg capsule Take 1 capsule 3 times a day by oral route as needed for 10 days. active Not Available Not Available No t Available hydrocodone 5 mg-acetamin ophen 325 mg tablet TK ONE T PO Q 4-6 H PRN active Not Available Not Available No t Available ondansetron HCl 8 mg tablet active Not Available Not Available Not Available ondansetron HCl 4 mg tablet 4 MG ORALLY THREE TIMES A DAY NEEDED FOR NAUSEA AND VOMITING active Not Available Not Available No t Available prednisone 20 mg tablet 3 po qday x 3 days then 2 po qday x 3 days then 1 po qday x 3 days then 1/2 tab po qday x 3 days then stop 02/04 completed Not Available Not Available Not Available phentermine 15 mg capsule TAKE 1 CAPSULE BY MOUTH EVERY DAY 02/04 completed Not Available Not Available Not Available phentermine 37.5 mg tablet TAKE 1 TABLET BY MOUTH EVERY DAY active Not Available Not Available No t Available ciprofloxac in 500 mg tablet TAKE 1 TABLET BY MOUTH EVERY 12 HOURS FOR 5 DAYS active Not Available Not Available No t Available sulfamethox azole 800 mg-trimetho prim 160 mg tablet Take 1 tablet every 12 hours by oral route with meals for 10 days. 05/21 completed Not Available Not Available Not Available acetaminoph en 500 mg tablet TAKE 2 TABLETS BY MOUTH EVERY 6 HOURS active Not Available Not Available No t Available levothyroxi ne 25 mcg tablet TAKE 1 TABLET BY MOUTH EVERY DAY active Not Available Not Available No t Available Bentyl 20 mg tablet Take 1 tablet every 6 hours by oral route as needed. 01/17 completed Not Available Not Available Not Available levothyroxi ne 75 mcg tablet TAKE 1 TABLET BY MOUTH EVERY DAY IN THE MORNING active Not Available Not Available No t Available oxycodone-a cetaminophe n 5 mg-325 mg tablet 1 - 2 TABLET ORALLY EVERY 6 HOURS NEEDED FOR PAIN 10/10 completed Not Available Not Available Not Available amoxicillin 875 mg tablet TAKE 1 TABLET BY MOUTH TWICE A DAY UNTIL FINISHED 05/29 completed Not Available Not Available Not Available methocarbam ol 750 mg tablet TAKE 1 TABLET BY MOUTH EVERY 8 HOURS NEEDED FOR MUSCLE PAIN/SPAS M 02/04 completed Not Available Not Available Not Available imiquimod 5 % topical cream packet APPLY TO THE AFFECTED AREA 3 TIMES PER WEEK AT NIGHT FOR UP TO 16 WEEKS 09/16 completed Not Available Not Available Not Available dexamethaso ne 1 mg tablet TAKE 1 TABLET BY MOUTH AT 10 PM THE NIGHT BEFORE A AM CORTISOL 1 DAYS active Not Available Not Available No t Available rizatriptan 10 mg disintegrat ing tablet TAKE 1 TAB AT ONSET OF HEADACHE, MAY REPEAT AGAIN IN 2 HOURS IF NEEDED. active Not Available Not Available No t Available cephalexin 500 mg capsule TAKE 1 CAPSULE BY MOUTH EVERY 12 HOURS 05/21 completed Not Available Not Available Not Available pantoprazol e 40 mg tablet,katelynn yed release TAKE 1 TABLET BY MOUTH EVERY DAY 02/04 completed Not Available Not Available Not Available cyanocobala min (vit B-12) 1,000 mcg/mL injection solution INJ IM ONCE A MONTH UTD 05/28 completed Not Available Not Available Not Available esomeprazol e magnesium 40 mg capsule,del ayed release active Not Available Not Available Not Available Synthroid 88 mcg tablet active Not Available Not Available Not Available Synthroid 50 mcg tablet TAKE 1 TABLET EVERY OTHER DAY IN THE MORNING FOR HYPOTHYRO IDISM 10/06 completed take 75 mcg on / /wed/ y and 50 mcg on wed/ ed/ iday Not Available Not Available Not Available docusate sodium 100 mg capsule TAKE 1 CAPSULE BY MOUTH EVERY 12 HOURS active Not Available Not Available No t Available Xylocaine with Epinephrine 1 %-1:100,000 injection solution 3 ml injected at base of skin lesions 09/06 completed Not Available Not Available Not Available hydroxyzine HCl 25 mg tablet Take 1 tablet 4 times a day by oral route as needed. active Not Available Not Available No t Available cyanocobala min (vit B-12) 1,[address] 1 TABLET EVERY DAY BY SUBLINGUA L ROUTE IN THE MORNING FOR 90 DAYS. 02/04 completed Not Available Not Available Not Available clobetasol 0.05 % topical ointment APPLY A THIN LAYER TO THE AFFECTED AREA TWICE DAILY 09/06 completed Not Available Not Available Not Available Cheratussin AC 10 mg-100 mg/5 mL oral liquid Take 10 mL every 4 hours by oral route as needed. 02/21 completed Not Available Not Available Not Available hydroxychlo roquine 200 mg tablet TAKE 2 TABLETS BY MOUTH EVERY DAY active Not Available Not Available No t Available scopolamine 1 mg over 3 days transdermal patch APPLY 1 PATCH EVERY 3 DAYS 10/10 completed Not Available Not Available Not Available methylpredn isolone 4 mg tablets in a dose pack TAKE 6 TABLETS ON DAY 1 DIRECTED ON PACKAGE AND DECREASE BY 1 TAB EACH DAY FOR A TOTAL OF 6 DAYS 10/10 completed Not Available Not Available Not Available albuterol sulfate HFA 90 mcg/actuati on aerosol inhaler active Not Available Not Available Not Available Vitamin D2 1,250 mcg (50,000 unit) capsule TK 1 C PO Q WEEK. 01/17 completed Not Available Not Available Not Available ondansetron 4 mg disintegrat ing tablet TAKE 1 TABLET BY MOUTH EVERY 8 HOURS NEEDED FOR NAUSEA AND VOMITING active Not Available Not Available No t Available metformin ER 500 mg tablet,exte nded release 24 hr TAKE 1 TABLET BY MOUTH TWICE A DAY 12/15 completed Not Available Not Available Not Available doxycycline hyclate 100 mg tablet Take 1 tablet twice a day by oral route for 10 days. 10/05 completed Not Available Not Available Not Available spironolact one 50 mg tablet TAKE 1 TABLET BY MOUTH TWICE A DAY 10/06 completed Not Available Not Available Not Available amoxicillin 875 mg-potassiu m clavulanate 125 mg tablet TAKE 1 TABLET BY MOUTH TWICE A DAY FOR 7 DAYS 05/29 completed Not Available Not Available Not Available oxycodone 5 mg tablet TAKE 1 TABLET BY MOUTH EVERY 4 HOURS NEEDED FOR PAIN active Not Available Not Available No t Available clindamycin 1 % lotion APPLY THIN LAYER TO AFFECTED AREA AT GROIN DAILY AND APPLY TO INFLAMED BUMPS TWICE A DAY NEEDED active Not Available Not Available No t Available Blood Glucose Test strips test daily dx r73.9 02/04 completed Not Available Not Available Not Available escitalopra m 10 mg tablet TAKE 1 TABLET BY MOUTH ONCE DAILY 01/17 completed Not Available Not Available Not Available cyclobenzap rine 5 mg tablet TAKE 1 TABLET BY MOUTH THREE TIMES A DAY NEEDED FOR MUSCLE SPASMS active Not Available Not Available No t Available escitalopra m 5 mg tablet TK 1 T PO ONCE D 02/01 completed Not Available Not Available Not Available nitrofurant oin monohydrate /macrocryst als 100 mg capsule TAKE 1 CAPSULE BY MOUTH EVERY 12 HOURS FOR 5 DAYS 10/10 completed Not Available Not Available Not Available cholecalcif stella (vitamin D3) 50 mcg (2,000 unit) capsule TAKE 1 CAPSULE BY MOUTH EVERY MORNING FOR 90 DAYS 02/04 completed Not Available Not Available Not Available Dexilant 60 mg capsule, delayed release Take 1 capsule every day by oral route. 09/13 completed Not Available Not Available Not Available Gianvi (28) 3 mg-0.02 mg tablet Take 1 tablet every day by oral route. 02/21 completed Not Available Not Available Not Available Plus (calcium carbonate) 27 mg iron-1 mg tablet active Not Available Not Available Not Available TRUEplus Lancets 28 gauge 02/04 completed Not Available Not Available Not Available Estarylla 0.25 mg-0.035 mg tablet TK 1 T PO QD 05/05 completed Not Available Not Available Not Available Vienva 0.1 mg-20 mcg tablet 02/01 completed Not Available Not Available Not Available Tri Femynor (28) 0.18 mg(7)/0.215 mg(7)/0.25 mg(7)-35 mcg tablet Take 1 tablet every day by oral route. 02/12 completed Not Available Not Available Not Available OneTouch Ultra Blue Test Strip 02/04 completed Not Available Not Available Not Available tirzepatide (weight loss) 5 mg/0.5 mL subcutaneou s pen injector Inject 5 mL every week by subcutane ous route. active Not Available Not Available No t Available Zepbound 7.5 mg/0.5 mL subcutaneou s pen injector 0.5 ML UNDER SKIN EVERY WEEK active Not Available Not Available No t Available Vitals Date Recorded Body height Body mass index (BMI) Body weight Body temperature Heart rate Oxygen saturation Oxygen saturation in Arterial blood by Pulse oximetry Systolic blood pressure Diastolic blood pressure Provider Name and Address Organization Details Last Updated DateTime 3 165.1 cm 44.6 kg/m2 084036. 76 g 97.3 [degF] 84 /min 98 % 98 % 118 mm[Hg] 86 mm[Hg] Ana Snow MA [place] [facility] 3 10:02:37 Date Recorded Body height Body mass index (BMI) Body weight Body temperature Heart rate Oxygen saturation Oxygen saturation in Arterial blood by Pulse oximetry Systolic blood pressure Diastolic blood pressure Provider Name and Address Organization Details Last Updated DateTime 3 165.1 cm 44.9 kg/m2 669715. 94 g 98.4 [degF] 62 /min 98 % 98 % 110 mm[Hg] 76 mm[Hg] Stefani Valentine RN [facility] [facility] 3 14:22:50 Date Recorded Body height Body mass index (BMI) Body weight Body temperature Heart rate Systolic blood pressure Diastolic blood pressure Provider Name and Address Organization Details Last Updated DateTime 3 165.1 cm 45.4 kg/m2 288451 g 97.9 [degF] 75 /min 122 mm[Hg] 80 mm[Hg] HONORIO Tobias [facility] [employer] [facility] 3 11:29:04 Date Recorded Body height Body mass index (BMI) Body weight Body temperature Heart rate Oxygen saturation Oxygen saturation in Arterial blood by Pulse oximetry Systolic blood pressure Diastolic blood pressure Provider Name and Address Organization Details Last Updated DateTime 4 165.1 cm 46.6 kg/m2 147312. 86 g 98 [degF] 66 /min 98 % 98 % 130 mm[Hg] 78 mm[Hg] Rasta Mills RN [facility] [employer] [facility] 4 14:01:11 Social History Question Answer Notes LastModified by Organizat ion Details LastModified Time Tobacco Smoking Status Never Smoker Not Available [facility] 09/23/2022 00:46:44 What Is Your Level Of Caffeine Consumption? Occasional [id number] Information not available 09/23/2022 How Much Tobacco Do You Chew? None [id number] Information not available 09/23/2022 In The 14 Days Before Symptom Onset, Have You Had Close Contact With A Laboratory-confirm ed COVID-19 While That Case Was Ill? No [id number] Information not available 09/23/2022 In The 14 Days Before Symptom Onset, Have You Had Close Contact With A Person Who Is Under Investigation For COVID-19 While That Person Was Ill? No [id number] Information not available 09/23/2022 What Type Of Diet Are You Following? REGULAR [id number] Information not available 09/23/2022 Which Illicit Or Recreational Drugs Have You Used? No [id number] Information not available 09/23/2022 What Was The Date Of Your Most Recent Tobacco Screening? 10/11/2023 [email or web address] Information not available 10/11/2023 What Is Your Relationship Status? [id number] Information not available 09/23/2022 Have You Recently Traveled Abroad? No [id number] Information not available 09/23/2022 Do You Have Any Dietary Restrictions? No [id number] Information not available 09/23/2022 Sex: Female Functional Status Question Answer Note LastModified by Organizat ion Details LastModified Time What is your level of alcohol consumption? Occasional [id number] Information not available 09/23/2022 What is your occupation? Self employed [id number] Information not available 09/23/2022 Do you or have you ever used e-cigarettes or vape? Never used electronic cigarettes [id number] Information not available 09/23/2022 Mental Status Question Answer Note LastModified by Organization D etails LastModified Time Do you feel stressed (tense, restless, nervous, or anxious, or unable to sleep at night)? [id number] [email or web address] Information not available 12/15/2022 Family History Relationship Description Onset Age of this Age Resolved Age Notes LastModified by Organization Details LastModified Time Mother Diabetes mellitus [id number] Not available 09/23/2022 00:46:57 Father Kidney disease [id number] Not available 09/23/2022 00:46:57 Father Malignant lymphoma [id number].589 [id number] Not available 09/23/2022 00:46:57 Maternal Grandmother Malignant tumor of colon [id number].412 [id number] Not available 09/23/2022 00:46:57 Maternal Grandfather Parkinson's disease [id number].846 [id number] Not available 09/23/2022 00:46:57 Paternal Grandfather Malignant tumor of stomach [id number] Not available 09/23/2022 00:46:57 Medical History Condition Response EYE PROBLEMS Y HEADACHES/MIGRAINES Y AUTOIMMUNE DISEASE Y OBESITY Y DEPRESSION (INCLUDING POST ) Y HYPOTHYROIDISM Y Gynecological History Statement/Question Response Date of LMP 12/07/2022 Breast Problems sore Obstetrics History GPAL:G 0 P 0 0 0 0 Immunizations Vaccine Type Date Status Note Provider Nam e and Address Organization Details Recorded Time Hep A, adult 12/15/2022 completed BEN Crane [address] [facility], [facility] [address], [place], [address], [facility] 12/15/2022 16:09:56 Past Encounters Encounter ID Performer Location Encounter Start Date Encounter Closed Date Diagnosis/Indication Diagnosis SNOMED-CT Code Diagnosis ICD10 Code Diagnosis Note [id number] Daniela Gallo MD [facility] [place] [address] [place] [address] 09/24/2020 00:00:00 09/24/2020 09:15:08 [id number] Daniela Gallo MD [facility] [place] [address] [place] [address] 01/10/2021 00:00:00 01/10/2021 10:42:05 [id number] Bebe Bullock MD [facility] [place] [address] [place] [address] 05/21/2021 00:00:00 05/21/2021 10:04:17 [id number] Daniela Gallo MD [facility] [place] [address] [place] [address] 06/02/2021 00:00:00 06/02/2021 11:37:27 [id number] Daniela Gallo MD [facility] [place] [address] [place] [address] 11/25/2021 00:00:00 11/25/2021 13:30:12 [id number] Daniela Gallo MD [facility] [place] [address] [place] [address] 05/29/2022 00:00:00 05/29/2022 13:34:59 [id number] BEN Escamilla [facility] [place] [address] [place] [address] 10/06/2022 09:52:46 10/06/2022 10:31:22 Adult health examination 026771102 Z00.00 Will get routine labs today. Covid vaccines- recommende d bivalent boosterFlu vaccine- declinesTe tanus vaccine- declines Pap- 2020 wnlColonos copy- recommende d age 45Mammogra m- recommende d age 40 Recommende d routine eye exams and dental cleanings. Diabetes m ellitus screening 532382173 Z13.1 Hyperlipid emia screening 629261301 Z13.220 Hypothyroidism 94441136 E03.9 Followed by endocrinol shireen. Vitamin D deficiency 347 04870 E55.9 Followed by endocrinol shireen. Dysuria 71437176 R30.0 Has had UTI symptoms for last few months. She states she has just increased water and taken AZO when needed. Will test urine. [id number] Bebe Bullock MD [facility] Primary Care [facility] [address] [facility] [address] [place] [address] 12/15/2022 14:16:17 12/15/2022 15:25:20 Active or passive immunization 121855849 Z23 States she needs hep A vaccinatio n. Cyst of ovary 18525090 N 83.209 Pain in right lower pelvic region, has been diagnosed with PCOS and ovarian cysts previously . She has not has any relief with treatment for her PCOS/cysts with hormonal controls.N o pain elicited on exam today. She has noticed some pink vaginal discharge in between periods.Wi ll plan to get US for further evaluation , plan to f/u with boat assembler. Right flank pain 5465133 09 R10.9 Will check urine to r/o any infection/ urinary pathology. Most likely referred pain from pelvic pain. Plantar fa sciitis of left foot 1124185468 9551685 M72.2 Will have her continue home stretches. If pain persists will plan to have her do formal PT or see podiatry. [id number] Daniela Gallo MD [facility] [place] [address] [place] [address] 02/04/2023 11:20:37 02/04/2023 12:25:23 Hypothyroidism 93086755 E03.9 TSH in ideal range- continue on unithroid 75 mcg daily. She was reminded to take her unithroid on empty stomach with glass of water and wait one hour to eat or have her coffee in morning and up to 4 hours if ever taking any heartburn or reflux medication s to help optimize absorption . Discussed paleo like diet with restrictio n of GMOs to help with energy and to optimize absorption of vitamins and minerals and reduce inflammati on. Folliculitis 21307209 L7 3.9 Refill clindamyci n lotion per patient request. Polycystic ovary syndrome 418381167 E28.2 Recommende d natural insulin transport pilot s along with potential [place]-inosit ol as patient did not tolerate metformin in the past. She is no longer on spironolac tone as she has no further hair loss- levels were in range at most recent studies. Recommende d high protein/lo w carb diet. The recommende d diet should be one of which she can incorporat e on a daily basis that will not modulate her lifestyle - discussed a diet of increased fiber; decreased refined carbohydra stephanie, trans fats, and saturated fats with focus on monounsatu rated fats such as unprocesse d chicken, turkey, nuts (excluding peanuts) and beans. She will be seeing nutritioni st soon. Spent up to 25 minutes preparing to see the patient (eg, review of tests), obtaining and/or reviewing separately obtained history, performing a medically appropriat e examinatio n and evaluation , counseling and educating the patient, ordering medication s, tests, along with documentin g clinical informatio n in the electronic health record, independen tly interpreti ng results and communicat ing results to the patient. Patient can be followed by PCP - she is aware of my resignatio n and last day of May 07. If needed her PCP can refer patient to another endocrinol ogist in the area. All questions /concerns answered and refills necessary at visit today. [id number] Bebe Bullock MD [facility] [address] [place] [address] 10/11/2023 13:56:57 10/11/2023 14:33:24 Body mass index 40+ - severely obese 195968106 Z68.42 trial of zepbound (currently getting it from [facility] but very expensive) comorbidit ies include mixed collagen vascular disease, PCOS, hypothyroi dism, sleep apnea, plantar fasciitis Hypothyroidism 47388190 E03.9 Vitamin D deficiency 347 67458 E55.9 Adult heal th examination 748181661 Z00.00 see boat assembler for papsmammog reji age 40colon cancer screen age 40 due to family hxflu vaccine yearlycovi d booster yearly Hyperlipidemia 48658043 E78.5 Hyperglycemia 48792873 R 73.9 [id number] Harinder Motley, RELOCATION SPECIALIST-C [facility] Denis gallegos [address] [facility] [address] [facility] [place] [address] 12/21/2023 10:59:46 12/21/2023 11:30:00 Health Concerns Section Related Observation LastModified by Organization Detai ls LastModified Time None Recorded Concern Status LastModified by Organization Details LastModified Time None Recorded Advance Directives Directive None Recorded Payers Encounter Date Sequence Insurance Name Policy Number Policy Johnson Covered Member ID Johnson Member ID Guarantor Name 10/06/2022 1 [facility] (O) [id number] Tariq Casey [id number] Tariq Casey 12/15/2022 1 [facility] (PPO) [id number] Tariq Casey [id number] Tariq Casey 02/04/2023 1 [facility] (PPO) [id number] Tariq Casey [id number] Tariq Casey 10/11/2023 1 [facility] [id number] Candido Casey [id number] Tariq Casey 12/21/2023 1 [facility] [id number] Candido Casey [id number] Tariq Casey Notes Date Note Type Note Provider Name and Address Organization Details Recorded Time 10/06/2022 text/html Pt. here for rhett [place] physical. Needs physical form completed for work.She is also established with endocrinology (Dr. Gallo). BEN Escamilla [address] [place] [address], [phone], [facility] [employer] 10/06/2022 10:21:42 12/15/2022 text/html Pt. has complain ts of right flank pain/right lower abdominal pain. Started about 2 months ago. She states she has more pink vaginal discharge, states it comes and goes. Will last 5-6 days and then be gone for a few days. She states she has not had any urinary symptoms. She states she has been diagnosed with PCOS and has a history of ovarian cysts. She has also noticed her breasts are more sore. She does not think she has felt any lumps or masses. She states it has improved over the last week. She is also wanting the hep a vaccine. States they told her she just needs one vaccination. She is also still struggling with plantar fasciitis in her left foot. She has tried wearing night splint, changing shoes/inserts, home exercises with no relief. BEN Escamilla [address], [facility] [address], [place], [address], makerist [facility] 12/15/2022 16:14:53 02/04/2023 text/html 37 yo female com es in for follow up in management of hypothyroidism, PCOS and vit D def last seen in Nov/telemedicine visit at that time we continued unithroid 75 mcg daily we continued metformin and spironolactone. she has gained another few pounds since her last visit. She has gained a total of 50 pounds since 3 years now. She couldn't tolerate the phentermine as this was giving her migraines. She stopped taking the metformin due to feeling shakey. She is only taking unithroid 75 mcg daily. She is on hydroxychloraquine for MCTD. She is seeing hand touch up painter in [place]. She will be meeting with a senior care provider next week. She is going to the gym 4-5 days a week and she is really working on her diet. labs from 02/14:TSH of 1.330 uIUmlFT4 of 1.19 ng/dLglucose 80 mg/dLCr normalLFT normaldheas 132 ug/mLtestosterone 19 ng/dLvit D 38.6 ng/mlinsulin 15.2 uU/mlFT3 of 3.4 pg/ml Daniela Gallo MD [address], [facility] [address], [place], [address], [employer] 02/04/2023 15:53:01 10/11/2023 text/html Here for wellnes s exam, s/p partial hysterectomy for DUB and dysmenorrhea. She is taking zepbound through a weight loss clinic but it is expensive. She notes that she is not as inflamed so she overall feels better. Bebe Bullock MD [address], [facility] [address], [place], [address], [employer] [facility] 10/18/2023 19:12:34 OBGyn Episode No OBEpisode recorded.
--- NOTE | 2024-12-15 07:13 | WPDHPUPDATE1 ---
History and Physical Update Update Date/Time: 12/15/24 07:13 History and Physical has been reviewed, including an updated exam of the patient. There are NO changes in the patient's condition. Risks, benefits, and alternatives have been discussed and questions answered. Patient agrees to proceed with procedure.
[2024-12-15] MEDS: LACTATED RINGERS 1,000 ML 30 ML IV CONT (09:20)
--- NOTE | 2024-12-15 09:36 | P.PNAN_ITS ---
Anes - Initial Pre Proc Eval Procedure: Operation Date: 12/15/24 11:00 Proposed Procedures p Partial Plantar Fasciectomy Left Foot - Amrit Goetz Jr., DPM Date/Time: 12/15/24 09:36 Surgeon: Amrit Goetz Jr., DPM Pre Op Diagnosis: Plantar Fasciitis Left Foot Patient Data Age: 39 Gender: F Height: 1.65 m Weight: 102 kg Allergies Allergy/AdvReac Type Severity Reaction Status Date / Time No Known Allergies Allergy Verified 12/07/24 09:13 Home Medications ?Medication ?Instructions ?Recorded ?Confirmed ?Type hydroxychloroquine 200 mg tablet 400 mg PO DAILY 04/23/21 12/07/24 History rizatriptan 10 mg disintegrating 10 mg PO DAILY PRN migraine 04/23/21 12/07/24 History tablet acetazolamide 500 mg 1,000 mg PO Q12H 11/14/24 12/07/24 History capsule,extended release levothyroxine 88 mcg tablet 88 mcg PO DAILY 11/14/24 12/07/24 History tirzepatide (weight loss) 10 10 mg subcut WEEKLY 11/14/24 12/07/24 History mg/0.5 mL subcutaneous pen injector (Zepbound) sertraline 25 mg tablet 25 mg PO HS 12/07/24 12/07/24 History Patient hx anesthesia problems: none Family hx anesthesia problems: none Results Review: All pre-operative results and documents have been reviewed as part of the pre- operative evaluation. [facility] Past Medical History Medical History (Updated 11/23/24 @ 16:17 by Harrison Franz DO) Hyperthyroidism SLE (systemic lupus erythematosus related syndrome) Idiopathic intracranial hypertension Anemia UTI (urinary tract infection) Migraines PCOS (polycystic ovarian syndrome) Surgical History Surgical History (Updated 11/23/24 @ 16:17 by Harrison Franz DO) History of hysterectomy Myringotomy tube(s) status Hx of section Hx of tonsillectomy Family History Family History Mother Hypertension Diabetes mellitus Father Kidney stone History of nephrectomy Social History Social History Smoking status: Never smoker Alcohol intake: current Alcohol use details: 2 PER MONTH Substance use: never Substance use type: marijuana Other substance usage details: EDIBLE ONCE MONTHLY Living arrangements: with family Gender identity (if verbalized by the patient): Female Spiritual care concerns: No Agree to blood products: Yes Anes - Eval Final PreProcedure Day of Procedure 12/15/24 09:36 Patient weight: obese Heart: regular rate and rhythm Lungs: clear to auscultation Airway: Mallampati scale class II Neurological: alert and oriented Last oral intake: >/= 8 hours ASA classification: III Emergent: no Anesthetic plan: proceed Anesthesia type and monitoring: general GIVS and standard monitoring Results Review: All pre-operative results and documents have been reviewed as part of the pre- operative evaluation. Informed Consent: The patient's anesthetic plan and its attendant risks and benefits were discussed with the patient/family/POA. Questions were solicited and answers provided to the satisfaction of the patient/family/POA.
[2024-12-15 11:07] VITALS: BP 115/68; PULSE 64; RESP 16; TEMP 36.4; O2SAT 100
[2024-12-15 11:10] VITALS: BMI 38.0
[2024-12-15] MEDS: LIDOCAINE 2% LOCAL INJ 20 ML VIAL 5 ML INFILTRATE (11:24)
[2024-12-15] MEDS: ceFAZolin 2 GM/D5W 50 ML 2 GM/50 ML BAG IVPB (11:24)
[2024-12-15] MEDS: BUPivacaine HCL 0.5% 10 ML AMP 5 ML INFILTRATE (11:53)
--- NOTE | 2024-12-15 12:07 | P.OP_ITS ---
Procedure Note - Detailed Date of Procedure 12/15/24 Pre-op Diagnosis Plantar Fasciitis Left Foot Post-op Diagnosis Same Procedure Performed Partial plantar fasciectomy left foot Surgeon Amrit Goetz Jr., DPM Anesthesia MAC and Local Indications Chronic inferior left heel pain Findings Narrow thick plantar fascia Description of Procedure Under mild sedation, the patient was brought in to the operating room, placed on the operating table in the supine position. A pneumatic ankle tourniquet was placed about the patient's ankle. Following general anesthesia, local anesthesia was obtained about the affected lower extremity utilizing 20 mL of a one to mix of 2% Lidocaine plain and 0.5% Marcaine plain to the tibial nerve. The foot was then scrubbed, prepped, and draped in the usual aseptic manner. An Esmarch bandage was then used to exsanguinate the patient's foot and the pneumatic ankle tourniquet was then inflated. Next, an incision was made starting distal to the medial tubercle of the calcane us extending distally 3cm. All bleeders were cauterized as necessary. Next the dissection was continued down to the plantar fascia it was exposed medially and laterally with [place] retractors. The plantar fascia was noted to be abnormal thick and narrow. Two thirds of the medial plantar fascia was transected and a 4mm portion was also cut and discarded. The wound site was flushed with sterile saline. The deep subcutaneous tissue was reapproximated with 3.0 Vicryl and the skin was reapproximated with 2.0 Prolene and 3.0 Prolene in Vertical mattress and Simple interrupted suture technique. Upon completion of the procedure, the plantar incision was dressed with adaptic, 4x4 gauze, kerlix and coban. The pneumatic ankle tourniquet was then deflated and a prompt hyperemic response was noted to all digits of the affected foot. A CAM Walker boot was then applied. The patient did very well with the procedure and the anesthesia. The patient was transferred to the recovery room with vital signs stable and vascular status intact to all toes of the affected foot. Following a period of postoperative monitoring, the patient will be discharged home on the following written and oral postoperative instructions: 1. The patient should keep the dressing clean, dry, and intact. Use a cast protector bag with showers. 2. The patient will be non weight bearing with a knee scooter/CAM boot for one week followed by two weeks of protected weight bearing with CAM boot. 3. Patient should ice and elevate the affected foot when at rest. 4. The patient is to contact Dr. Goetz for all postop care and if any problems arise. 5. Prescriptions were written for Percocet 5/325 dispensed 40 to be taken 1 p.o. q.4-6 hours as needed for severe pain. . Implants None Estimated Blood Loss 1 Drains No Packing No Pathology None sent Complications No immediate complications Condition Stable Disposition Same day
[2024-12-15 12:08] VITALS: BP 115/58; PULSE 58; RESP 16; O2SAT 100
[2024-12-15 12:30] VITALS: BP 105/58; PULSE 51; RESP 16; O2SAT 98
[2024-12-15] MEDS: oxyCODONE HCL (*CRX) 5 MG TAB IR PO (12:54)
[2024-12-15 13:00] VITALS: BP 102/64; PULSE 51; RESP 16
[2024-12-15 13:25] VITALS: BP 104/89; PULSE 54; RESP 16
[2024-12-15 13:39] VITALS: BP 105/82; PULSE 52; RESP 16
== END 2024-12-15 13:40 | disposition home or self-care (01) ==
PROVIDERS: PCP Physician Assistant; Visit Provider Podiatrist Foot & Ankle Surgery
PROC: (CPT 28119; principal; 2024-12-15 11:00)
DX: M72.2 Plantar fascial fibromatosis (principal); F12.90 Cannabis use, unspecified, uncomplicated; E66.9 Obesity, unspecified; Z68.38 Body mass index [BMI] 38.0-38.9, adult
CPT/HCPCS: 28060; A9270; J0690; J2003; J2250; J2405; J2704; J3010; J7120

== ENCOUNTER 2025-03-29 12:26 | Emergency (ER) | payer OTHER, SELFPAY ==
--- OUTSIDE RECORDS SUMMARY | 2024-04-17 08:20 | XMS_ITS ---
Author Organization [facility] Address [address] [place] [id number] Care Team Providers Care Shoe Trimmer Name Role Phone Daniela Gallo Primary Care Provider REASON FOR VISIT Med Cheeck Medications Medication SIG (Take, Route, Frequency, Duration) Notes Start Date End Date Status Rizatriptan Benzoate 10 mg tablet, disintegrating 1 tab(s) orally once a day *Pick strength-form from [facility] for eRX* 11/01/2023 Unknown Hydroxychloroquine Sulfate 400 mg tablet 1 tab(s) orally once a day 11/01/2023 Unknown Levothyroxine Sodium 88 mcg (0.088 mg) tablet 1 tab(s) orally once a day; Duration: 90 days *Pick strength-form from [facility] for eRX* 11/26/2023 Unknown Synthroid 88 mcg (0.088 mg) tablet 1 tab(s) orally once a day; Duration: 90 days *Pick strength-form from [facility] for eRX* 12/14/2023 Unknown dexAMETHasone 1 mg tablet 1 tab(s) orally at 10 pm night before 8 am cortisol; Duration: 1 days 11/26/2023 Unknown Tirzepatide 7.5 mg/0.5 mL solution as directed subcutaneously once a week *Pick strength-form from [facility] for eRX* Unknown Encounters Encounter Location Date Provider Diagnosis AMMO Dr. Gallo [address] [place] [id number] 04/17/2024 Daniela Gallo Plan Of Treatment No Information History and Physical Notes * HPI (History of Present Illness) Category Sub-Category Detail Notes Category Not es Migrated HPI Interval Hx : 39 yo female calls in today to initiate telehealth visit to discuss progress and management of hypothyroidism, weight management. Verbal consent provided by patient to proceed with this visit. This visit was performed in office via provider and patient located in primary care office with real time audio with video. At last visit / telehealth in November we continued synthroid 88 mcg daily. we recommended DST. No labs to review. Progress Notes * Ailyn CASEYB:1985 (40 yo F)Acc No.[id number]:04/17/2024 Progress Notes Patient: Tariq Virgen Provider: Kayli Gallo MD :1985 A ge:39 Y S ex:Female Date:04/17/2024 Phone: Address:[facility] [address] [facility], [id number] Subjective: * Chief Complaints: * M ed Cheeck * HPI: M igrated HPI: Interval Hx : 39 yo female calls in today to initiate telehealth visit to discuss progress and management of hypothyroidism, weight management. Verbal consent provided by patient to proceed with this visit. This visit was performed in office via provider and patient located in primary care office with real time audio with video. At last visit / telehealth in November we continued synthroid 88 mcg daily. we recommended DST. No labs to review. * Medications: U nknownTirzepatide 7.5 mg/0.5 mL solution as directed subcutaneously once a week , Notes to Pharmacist: *Pick strength-form from [facility] for eRX*Rizatriptan Benzoate 10 mg tablet, disintegrating 1 tab(s) orally once a day , Notes to Pharmacist: *Pick strength-form from [facility] for eRX*Hydroxychloroquine Sulfate 400 mg tablet 1 tab(s) orally once a day Levothyroxine Sodium 88 mcg (0.088 mg) tablet 1 tab(s) orally once a day , Notes to Pharmacist: *[facility]Synthroid 88 mcg (0.088 mg) tablet 1 tab(s) orally once a day , Notes to Pharmacist: *Pick strength-form from Med[facility] for eRX*dexAMETHasone 1 mg tablet 1 tab(s) orally at 10 pm night before 8 am cortisol Unknown Tirzepatide 7.5 mg/0.5 mL solution as directed subcutaneously once a week , Notes to Pharmacist: *Pick strength-form from [facility] for eRX*Unknown Rizatriptan Benzoate 10 mg tablet, disintegrating 1 tab(s) orally once a day , Notes to Pharmacist: *[facility]Unknown Hydroxychloroquine Sulfate 400 mg tablet 1 tab(s) orally once a day Unknown Levothyroxine Sodium 88 mcg (0.088 mg) tablet 1 tab(s) orally once a day , Notes to Pharmacist: *[facility]*Unknown Synthroid 88 mcg (0.088 mg) tablet 1 tab(s) orally once a day , Notes to Pharmacist: *[facility]*Unknown dexAMETHasone 1 mg tablet 1 tab(s) orally at 10 pm night before 8 am cortisol * Electronic signature of Wilberto Gallo MD on 03/29/2025 at 12:37 PM CDT Sign off status: Pending * Provider: Kayli Gallo MD Date: 04/17/2024 Generated for Bernard liu/Merrill/Lizbeth on: 03/29/2025 12:37 PM CDT
--- OUTSIDE RECORDS SUMMARY | 2024-06-10 16:00 | XMS_ITS ---
Author Organization [facility] Address [address] [id number] Care Team Providers Care Nutritional Services Cook Name Role Phone Daniela Gallo Primary Care Provider [phone] Migration, Provider Unavailable Unavailable REASON FOR VISIT [facility] Encounter Medications Medication SIG (Take, Route, Frequency, Duration) Notes Start Date End Date Status Levothyroxine Sodium 88 MCG Tablet 1 tab(s) orally once a day; Duration: 90 days 11/26/2023 Unknown Synthroid 88 MCG Tablet 1 tab(s) orally once a day; Duration: 90 days 12/14/2023 Unknown Rizatriptan Benzoate 10 MG Tablet Disintegrating 1 tab(s) orally once a day 11/01/2023 Unknown Hydroxychloroquine Sulfate 400 MG Tablet 1 tab(s) orally once a day 11/01/2023 Unknown dexAMETHasone 1 MG Tablet 1 tab(s) orally at 10 pm night before 8 am cortisol; Duration: 1 days 11/26/2023 Unknown Tirzepatide 7.5 MG/0.5 ML SOLUTION DIRECTED SUBCUTANEOUSLY ONCE A WEEK *Please review and pick correct strength-formula tion from Medispan options. If intended option is not shown, discontinue and re-order from Quick Search* *Pick strength-form from [facility] for eRX* Unknown Encounters Encounter Location Date Provider Diagnosis [facility] [address] [id number] 06/10/2024 Provider Migration Plan Of Treatment No Information Progress Notes * Robbie CASEYaDOB:1985 (40 yo F)Acc No.[id number]:06/10/2024 Patient: Tariq Virgen Provider: Edwardo rdz Migration :1985 A ge:39 Y S ex:Female Date:06/10/2024 Phone: Address:[address], [place], [id number] Pcp:Daniela Gallo Subjective: * Chief Complaints: * M ultum To Medispan Conversion Encounter * Medications: U nknownTirzepatide 7.5 MG/0.5 ML SOLUTION DIRECTED SUBCUTANEOUSLY ONCE A WEEK , Notes to Pharmacist: *Please review and pick correct strength-formulation from Medispan options. If intended option is not shown, discontinue and re-order from Quick Search* *Pick strength-form from [facility] for eRX*Rizatriptan Benzoate 10 MG Tablet Disintegrating 1 tab(s) orally once a day Hydroxychloroquine Sulfate 400 MG Tablet 1 tab(s) orally once a day Levothyroxine Sodium 88 MCG Tablet 1 tab(s) orally once a day Synthroid 88 MCG Tablet 1 tab(s) orally once a day dexAMETHasone 1 MG Tablet 1 tab(s) orally at 10 pm night before 8 am cortisol Unknown Tirzepatide 7.5 MG/0.5 ML SOLUTION DIRECTED SUBCUTANEOUSLY ONCE A WEEK , Notes to Pharmacist: *Please review and pick correct strength-formulation from Medispan options. If intended option is not shown, discontinue and re-order from Quick Search* *Pick strength-form from [facility] for eRX*Unknown Rizatriptan Benzoate 10 MG Tablet Disintegrating 1 tab(s) orally once a day Unknown Hydroxychloroquine Sulfate 400 MG Tablet 1 tab(s) orally once a day Unknown Levothyroxine Sodium 88 MCG Tablet 1 tab(s) orally once a day Unknown Synthroid 88 MCG Tablet 1 tab(s) orally once a day Unknown dexAMETHasone 1 MG Tablet 1 tab(s) orally at 10 pm night before 8 am cortisol * Electronic signature of Prov ider Migration on 03/29/2025 at 12:38 PM CDT Sign off status: Pending * Provider: Edwardo rdz Migration Date: 08/10/2023 Generated for Bernard liu/Merrill/Juanaitting on: 0 03/29/2025 12:38 PM CDT
--- NOTE | ~2025-03-29 | XR_ITS ---
EXAM/ PROCEDURE: XR foot RT min 3V - 03/29/2025 12:46 CDT HISTORY: 40 years old Female with right proximal dorsal great toe pain COMPARISON: None available TECHNIQUE: Three view(s) FINDINGS/ IMPRESSION: There are no fractures or dislocations.Joint spaces are within normal limits. Status post ORIF of distal tibia and fibula. Partially visualized hardware is intact and no loosening. Reviewed, dictated and finalized at location N.
--- NOTE | 2025-03-29 12:29 | ED.LOWEXIN ---
HPI - Extremity Injury (Lower) General Chief Complaint: Extremity Injury, Lower Stated Complaint: right foot pain Time Seen by Provider: 03/29/25 12:40 Source: patient Mode of arrival: ambulatory Limitations: no limitations History of Present Illness HPI Narrative: Tariq is a 40-year-old female patient presenting to the clinic today with complaints of right proximal great toe pain x1 day. Denies any known injury. Is concerned that she may have kicked the footboard when she was sleeping. Has pain, mild redness, and swelling over the right dorsal proximal great toe. Pain worse with movement to the right great toe. No personal history of gout. Has taken ibuprofen for symptoms. Currently rates her pain a throbbing 01/02. Related Data Home Medications ?Medication ?Instructions ?Recorded ?Confirmed ?Last Taken ?Type hydroxychloroquine 200 mg tablet 400 mg PO DAILY 04/23/21 12/07/24 11/23/24 History rizatriptan 10 mg disintegrating 10 mg PO DAILY PRN migraine 04/23/21 12/07/24 Unknown History tablet acetazolamide 500 mg 1,000 mg PO Q12H 11/14/24 12/07/24 11/23/24 History capsule,extended release levothyroxine 88 mcg tablet 88 mcg PO DAILY 11/14/24 12/15/24 12/15/24 History tirzepatide (weight loss) 10 10 mg subcut WEEKLY 11/14/24 12/07/24 12/04/24 History mg/0.5 mL subcutaneous pen injector (Zepbound) sertraline 25 mg tablet 25 mg PO HS 12/07/24 12/07/24 Unknown History Allergies Allergy/AdvReac Type Severity Reaction Status Date / Time No Known Allergies Allergy Verified 03/29/25 12:35 Review of Systems Review of Systems: Pertinent positives per HPI. Patient denies any fever, chills, rash, headache, visual changes, dizziness, cough, runny nose, sore throat, shortness of breath, chest pain, palpitations, nausea, vomiting, diarrhea, constipation, abdominal pain, or any urinary issues. [facility] Past Medical History Medical History Hyperthyroidism SLE (systemic lupus erythematosus related syndrome) Idiopathic intracranial hypertension Anemia UTI (urinary tract infection) Migraines PCOS (polycystic ovarian syndrome) Surgical History Surgical History History of hysterectomy Myringotomy tube(s) status Hx of section Hx of tonsillectomy Family History Family History Mother Hypertension Diabetes mellitus Father Kidney stone History of nephrectomy Social History Social History Smoking status: Never smoker Alcohol intake: current Alcohol use details: 2 PER MONTH Substance use: never Substance use type: marijuana Other substance usage details: EDIBLE ONCE MONTHLY Living arrangements: with family Gender identity (if verbalized by the patient): Female Spiritual care concerns: No Agree to blood products: Yes Comments At the time of my signature, I reviewed and agree with the nursing past medical, surgical, social, and family history. There is no relevant family history pertinent to the patient complaint. Exam Narrative: General: Well-developed, obese, in no apparent distress Head: Normocephalic, atraumatic. Cardio: Regular rate and rhythm, s1 and s2 normal, no murmur appreciated. Resp: Clear to auscultation bilaterally, no rhonchi, rales, wheezing or rubs. Musculoskeletal: No deformity, mild swelling and redness to the right proximal great toe compared to the left great toe, tender to palpation over the proximal dorsal right great toe, pain with flexion extension of the right great toe, grossly normal range of motion, muscle strength strong and equal, peripheral pulse strong, no edema, no cyanosis, antalgic gait and station Course Course Emergency Course: Portions of this record may have been created with voice recognition software. Level of Care: Express Care Visit Vital Signs Vital signs: Vital Signs Temperature 36.6 C 03/29/25 12:32 Pulse Rate 66 03/29/25 12:32 Respiratory Rate 18 03/29/25 12:32 Blood Pressure 103/66 03/29/25 12:32 Pulse Oximetry 99 03/29/25 12:32 Oxygen Delivery Room Air 03/29/25 12:32 Temperature 36.6 C 03/29/25 12:32 Pulse Rate 66 03/29/25 12:32 Respiratory Rate 18 03/29/25 12:32 Blood Pressure 103/66 03/29/25 12:32 Pulse Oximetry 99 03/29/25 12:32 Oxygen Delivery Room Air 03/29/25 12:32 Vital signs reviewed MDM - Extremity Injury (Lower) MDM Narrative Medical decision making narrative: At the time of visit patient is resting comfortably on the exam table. Patient appears to be nontoxic. Complaints of right proximal great toe pain x1 day. Denies any known injury. Is concerned that she may have kicked the footboard when she was sleeping. Has pain, mild redness, and swelling over the right dorsal proximal great toe. Pain worse with movement to the right great toe. No personal history of gout. Has taken ibuprofen for symptoms. Currently rates her pain a 6/10. X-ray of the right foot was ordered. Diagnostics: X-ray of the right foot was negative for any sign of fracture or malalignment. Plan: Patient has proximal right great toe pain with mild redness and swelling suspicious for possible early gout. Prescription for Medrol Dosepak was sent to the pharmacy. Supportive measures were discussed with the patient and they voiced understanding discharge instructions and agrees to treatment plan. Return precautions reviewed Differential Diagnosis Differential diagnosis: Likely fracture of toe and other (Toe sprain, gout, soft tissue injury, cellulitis, arthritis) Imaging Data Radiologist's impression: [place] [address] XRay Report Signed Patient: Tariq Casey : 1985 MR#: [id number] Age: 40 Acct:[id number] Loc: [facility] ADM Date: 03/29/25Attending Dr: Ordering Physician: Reji Isbell APRN Date of Service: 03/29/25 Procedure(s): XR foot RT min 3V Accession Number(s): [id number] cc: Reji Isbell APRN; Rahul, Tiffany BLAIR~ EXAM/ PROCEDURE: XR foot RT min 3V - 03/29/2025 12:46 CDT HISTORY: 40 years old Female with right proximal dorsal great toe pain COMPARISON: None available TECHNIQUE: Three view(s) FINDINGS/ IMPRESSION: There are no fractures or dislocations.Joint spaces are within normal limits. Status post ORIF of distal tibia and fibula. Partially visualized hardware is intact and no loosening. Reviewed, dictated and finalized at location N. Please be advised this is a medical document. It is intended for hulx-xx-nokx communication. It is written in medical language and may contain unfamiliar abbreviations or verbiage. Medical documents are intended to carry relevant information, facts as evident, and the clinical opinion of the practitioner at the time of the encounter. This report may have been done utilizing a voice recognition system. Attempts have been made to correct errors. However, there may be uncorrected grammatical, spelling, and recognition errors present. The file time of this note does not necessarily represent the time of service. Dictated By: Earnestine Blevins MD 03/29/25 1258 Signed By: <Electronically signed by Earnestine Blevins MD in OV> 03/29/25 1259 Discharge Plan Discharge Clinical Impression: Pain of right great toe Patient Disposition: Home Condition: Stable Instructions: Antibiotic Form, Low Purine Diet (ED), Gout (ED), Swollen Joint (ED) Additional Instructions: X-rays negative for any sign of fracture or malalignment of the right foot/right great toe Rest, ice, and elevate Tylenol/motrin for pain as discussed. Take Medrol Dosepak as prescribed Gradually bear weight No running or sports until healed. Follow up with your PCP if symptoms persist more than 1 week. Patient Language: German Prescriptions: New methylprednisolone [Medrol (Ben)] 4 mg tablets,dose pack See Rx Instructions PO .COMPLEX Qty: 21 0RF Rx Instructions: orally per package directions No Action rizatriptan 10 mg tablet,disintegrating 10 mg PO DAILY PRN (Reason: migraine) hydroxychloroquine 200 mg tablet 400 mg PO DAILY levothyroxine 88 mcg tablet 88 mcg PO DAILY Zepbound 10 mg/0.5 mL pen injector 10 mg subcut WEEKLY Patient Comments: Mondays acetazolamide 500 mg capsule, extended release 1,000 mg PO Q12H sertraline 25 mg tablet 25 mg PO HS Follow-up/Referrals: Rahul,ROSSY Allen [Primary Care Provider, Unknown] Time of Disposition: 13:06 Quality NIHSS Nursing Documentation ED NIHSS nursing documentation: reviewed/agree
[2025-03-29 12:32] VITALS: BP 103/66; PULSE 66; RESP 18; TEMP 36.6; O2SAT 99
--- OUTSIDE RECORDS SUMMARY | 2025-03-29 12:38 | XMS_ITS | Patient Health Record ---
Author Organization [facility] Address [address] [place], [place] [address] [id number] Care Team Providers Care Legal Collector Name Role Phone Daniela Gallo Primary Care Provider [phone] Migration, Provider Unavailable Unavailable Allergies No Known Allergies Reason For Referral No Information Medications Medication SIG (Take, Route, Frequency, Duration) Notes Start Date End Date Status Tirzepatide 7.5 MG/0.5 ML SOLUTION DIRECTED SUBCUTANEOUSLY ONCE A WEEK *Please review and pick correct strength-formula tion from Rippldspan options. If intended option is not shown, discontinue and re-order from Quick Search* *Pick strength-form from Medispan for eRX* Unknown Levothyroxine Sodium 88 MCG Tablet 1 [...] am cortisol; Duration: 1 days 11/26/2023 Unknown Problems Problem Type SNOMED Code ICD Code Onset Dates Problem Status W/U Status Risk Notes Problem Hypothyroidism (41104991) Hypothyroidism, unspecified (E03.9) Active confirmed Problem Menopause (320375788) Menopausal and female climacteric states (N95.1) Active confirmed Encounters Encounter Location Date Provider Diagnosis [address] [place] [id number] 06/10/[address] [facility] [address] Gallo [address] [place] [address] 04/17/2024 Daniela Gallo Plan Of Treatment No Information Insurance Providers Payer Name Payer Address Payer Phone Subscriber Number Group Number Insured Name Patient Relationship to Insured Coverage Start Date Coverage End Date [facility] [address] [place] [phone] [id number] Candido Casey Spouse - patient is the spouse of the insured
--- OUTSIDE RECORDS SUMMARY | 2025-03-29 12:38 | XMS_ITS | Clinical Summary ---
Author Organization [facility] Address [address] [place] [address] Care Team Providers Care Quantitative Strategy Analyst Name Role Phone Bebe Bullock MD Primary [...] 1:09 PM CDT Height 165.1 cm (5' 5) 02/02/2021 1:09 PM CDT Body Mass Index 43.27 02/02/2021 1:09 PM CDT Plan of Treatment Health Maintenance Due Date Last Done Comments Cervical Cancer Screening Pa p Smear (Age 30 to 64) Every 3 Years 1985 Annual Physical 1988 Hepatitis C 2003 DTaP, Tdap and Td Vaccines ( 1 - Tdap) 2004 Hepatitis B Vaccines (1 of 3 - 19+ 3-dose series) 2004 HPV Vaccines (1 - 3-dose SCD M series) 2012 Cervical Cancer Screening Pa p with HPV Testing (Age 30 to 64) Every 5 Years 2015 Cervical Cancer Screening wi th HPV 2015 COVID-19 Vaccine (3 - 2023-2 5 season) 2024 11/14/2020, 10/20/2020 Meningococcal B Vaccine Aged Out No l [...] patient's age to complete this topic Insurance [facility] [id number] Advance Directives Documents on File Type Date Recorded Patient Paper Novelty Maker Expl anation Advance Directives and Living Will [...] 09/15/2010 12:00 AM ADVANCED DIRECTIVES Care Teams Quantitative Strategy Analyst Relationship Specialty Start Date End Date Bebe Bullock MD [address] [place] [address] PCP - General FAMILY PRACTICE 02/02/21
--- OUTSIDE RECORDS SUMMARY | 2025-03-29 12:38 | XMS_ITS | Clinical Summary ---
Author Organization [facility] Address [address] [place] [address] Care Team Providers Care Oracle Ebs Consultant Name Role Phone Tiffany Kay Primary Care Pr ovider Allergies Active Allergy Reactions Criticality Noted Date Comments Gluten Stomach upset High 03/30/2024 Medications rizatriptan PROCEDURES ANALYST (MAXALT-PROCEDURES ANALYST) 10 mg disintegrating tabletIndications: Migraine Take 1 [...] EVERY DAY FOR 90 DAYS 4 Active hydroxychloroquine (PLAQUENIL) 200 mg tablet TAKE 2 TABLETS BY MOUTH EVERY DAY 180 tablet 1 5 Active sertraline (ZOLOFT) 25 mg tablet Take 1 tablet (25 mg total) by mouth every evening 5 Active acetaZOLAMIDE ER (DIAMOX SEQUAL) 500 mg capsuleIndications :IIH (idiopathic intracranial hypertension),Dion lledema associated with increased intracranial pressure Take 1 capsule (500 mg total) by mouth every morning AND 2 capsules (1,000 mg total) nightly. 270 capsule 5 Active Active Problems Problem Noted Date [...] Encounters Date Type Department Care Team Description 03/08/2025 2:30 PM CDT Office Visit [facility] Medicine Ophthalmology [address] [place] [phone] Paul Pickering MD PhD IIH (idiopathic intracranial hypertension) (Primary Dx) 03/08/2025 2:10 PM CDT Imaging Exam [facility] Medicine Ophthalmology [address] [place] [phone] Papilledema associated with increased intracranial pressure 02/28/2025 Orders Only [facility] Medicine Ophthalmology [address] [place] [phone] Paul Pickering MD PhD Papilledema associated with increased intracranial pressure (Primary Dx) 02/23/2025 Telephone [facility] Medicine Ophthalmology [address] [place] [phone] Paul Pickering MD PhD from Last 3 Months Immunizations Immunization Administration Dates Next Due Pfizer SARS-CoV-2 Monovalent Vaccination (12+ Yrs) PURPLE 10/20/2020 Surgical History Surgery Date Site/Laterality Comments MYRINGOTOMY W/ TUBES TYMPANIC MEMBRANE REPAIR SECTION 07/26/2015 - 07/25/2016 WISDOM TOOTH EXTRACTION ANKLE SURGERY HYSTERECTOMY BLAD[facility]. 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 2-4 times a month 03/08/2025 Average Number of Drinks Not on file 025 Frequency of Binge Drinking Not on file 02/23 Comments Unknown Sex and Gender Information Value Date Recorded Sex Assigned at Not on file Legal Sex Female 10:43 AM CDT Gender Identity Female 07/10/2021 12:30 PM THIRD HELPER Sexual Orientation Straight 07/10/2021 12 :30 PM THIRD HELPER Obstetrics History Last Filed Vital Signs Vital [...] 1:35 PM CDT Height 165.1 cm (5' 5) 11/28/2024 1:35 PM CDT Body Mass Index [...] 2004 Zoster Vaccine (1 of 2) 2004 HPV Vaccines (1 - 3-dose SCDM series) 2012 Covid-19 Vaccine (3 - Pfizer risk series) 12/12/2020 11/14/2020, 10/20/2020 Influenza Vaccine (#1) 2025 Medical Devices Implanted Type Area Brooch Maker Novelty Device Identifier Shelf Expiration Date Model / Serial / Lot [employer]O rtho [id number] Evos Mini 34mm 5 Hole Luz Elena Low Profile Variable Angle Small Bone - [id number] Implanted:Qty: 1 on 10/27/2019 by Myriam Murphy MD at [facility] Plate Right: Ankle [employer]Or tho [id number] / / [employer] r[employer]o [id number] Evos Mini 52mm 5 Hole Luz Elena Low Profile Variable Angle Small Bone - [id number] Implanted:Qty: 1 on 10/27/2019 by Myriam Murphy MD at [facility] Plate Right: Ankle [employer]Or tho [id number] / / [employer] r[employer]o [id number] Evos Mini 140mm 20 Hole Strenght Low Profile Variable Angle Small - [id number] Implanted:Qty: 1 on 10/27/2019 by Myriam Murphy MD at [facility] Plate Right: Ankle [employer]Or tho [id number] / / [employer]o [id number] 2.7mm 4.3mm 24mm Self Tap Lock T8 2mm Screw Bone Evos - [id number] Implanted:Qty: 1 on 10/27/2019 by Myriam Murphy MD at [facility] Screw Right: Ankle [employer]Or tho [id number] / / [employer] rtho [id number] Evos 2.4mm 14mm Self Tap Self Retaining Drive Small Bone Long - [id number] Implanted:Qty: 1 on 10/27/2019 by Myriam Murphy MD at [facility] Screw Right: Ankle [employer]Or tho [id number] / / [employer] r[employer]o [id number] Evos 2.4mm 16mm Self Tap Self Retaining Drive Small Bone Long - [id number] Implanted:Qty: 1 on 10/27/2019 by Myriam Murphy MD at [facility] Screw Right: Ankle [employer]Or tho [id number] / / [employer]o [id number] Evos 3.5mm 80mm Self Tap Cortex Screw Bone Sterile - [id number] Implanted:Qty: 1 on 10/27/2019 by Myriam Murphy MD at [facility] Screw Right: Ankle [employer]Or tho [id number] / / [employer]o [id number] 2.7mm 4.5mm 36mm Self Tap Cortex T8 2mm Screw Bone Evos - [id number] Implanted:Qty: 1 on 10/27/2019 by Myriam Murphy MD at [facility] Screw Right: Ankle [employer]Or tho [id number] / / [employer]o [id number] 2.7mm 4.5mm 28mm Self Tap Cortex T8 2mm Screw Bone Evos - [id number] Implanted:Qty: 2 on 10/27/2019 by Myriam Murphy MD at [facility] Screw Right: Ankle [employer]Or tho [id number] / / [employer] rtho [id number] Evos Mini 2.7mm 4.5mm 40mm Self Tap Chainstitch Sewing Machine Operator Long Bone Small Bone - [id number] Implanted:Qty: 2 on 10/27/2019 by Myriam Murphy MD at [facility] Screw Right: Ankle [employer]Or tho [id number] / / [employer] rtho [id number] Evos 2.7mm 4.5mm 34mm Self Tap Cortex T8 Screw Bone Nonsterile - [id number] Implanted:Qty: 1 on 10/27/2019 by Myriam Murphy MD at [facility] Screw Right: Ankle [employer]Or tho [id number] / / [employer] rtho [id number] 2.7mm 4.5mm 15mm Self Retaining Screwdriver Self Tap Flat Head - [id number] Implanted:Qty: 1 on 10/27/2019 by Myriam Murphy MD at [facility] Screw Right: Ankle [employer]Or tho [id number] / / [employer]o [id number] Evos 2.7mm 4.5mm 18mm Self Tap Cortex T8 Screw Bone Nonsterile - [id number] Implanted:Qty: 2 on 10/27/2019 by Myriam Murphy MD at [facility] Screw Right: Ankle [employer]Or tho [id number] / / [employer] rtho [id number] 2.7mm 4.5mm 24mm Self Retaining Screwdriver Self Tap Flat Head - [id number] Implanted:Qty: 1 on 10/27/2019 by Myriam Murphy MD at [facility] Right: Ankle [employer]Or tho [id number] / / Procedures Procedure Name Priority Date/Time Associated Diagnosis Comments OCT, OPTIC NERVE - OU - BOTH EYES Routine 03/08/2025 2:11 PM CDT Papilledema associated with increased intracranial pressure OCT, RETINA - OU - BOTH EYES Routine 03/08/2025 2:11 PM CDT Papilledema associated with increased intracranial pressure from Last 3 Months Results * OCT, Optic Nerve - OU - Both Eyes (03/08/2025 2:11 PM CDT) RNFL OS 96 micrometers CONTINUUM RNFL OD 96 micrometers CONTINUUM Anatomical Region Laterality Modality Head Other Narrative 03/08/2025 2:34 PM CDT Right Eye Reliability was good. Average RNFL thickness 96 micrometers. Left Eye Reliability was good. Average RNFL thickness 96 micrometers. Notes Normal RNFL OU Paul Pickering MD PhD OPHTH TOMOGRAPHY Final Resul t * OCT, Retina - OU - Both Eyes (03/08/2025 2:11 PM CDT) Central Macular Thickness OS 272 mircometers CONTINUUM Central Macular Thickness OD 265 micrometers CONTINUUM Anatomical Region Laterality Modality Head Other Narrative 03/08/2025 2:35 PM CDT Right Eye Quality was good. Macular thickness was 265 micrometers. Left Eye Quality was good. Macular thickness was 272 mircometers. Notes Ganglion cell layer (GCL)+inner plexiform layer (IPL) thickness: 81um OD, 83um OS. Normal macular and GCC thickness OU. Paul Pickering MD PhD OPHTH TOMOGRAPHY Final Resul t from Last 3 Months Insurance [facility] Care Teams Oracle Ebs Consultant Relationship Specialty Start Date End Date Tiffany Kay PA [address] [place] [address] PCP - General Physician Vp Director Of Creative Strategy 02/17/24
--- OUTSIDE RECORDS SUMMARY | 2025-03-29 12:38 | XMS_ITS | Clinical Summary ---
Author Organization [facility] Address [address] [place] [address] Care Team Providers Care Ordnance Officer Name Role Phone Bebe Bullock MD Primary Care Provider + Allergies No known active allergies Medications PLUS 27-1 MG PO TABS Take 27 mg by mouth daily. 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 Not on file Not on file Last Filed Vital Signs Vital Sign Reading Time Taken Comments Blood Pressure 110/68 09/26/2014 11:23 AM SOLAR PV INSTALLER Pulse 74 09/26/2014 11:23 AM SOLAR PV INSTALLER Temperature - - Respiratory Rate - - Oxygen Saturation - - Inhaled Oxygen Concentration - - Weight 101.2 kg (223 lb) 09/26/2014 11:23 AM SOLAR PV INSTALLER Height 165.1 cm (5' 5) 09/26/2014 11:23 AM SOLAR PV INSTALLER Body Mass Index 37.11 09/26/2014 11:23 AM SOLAR PV INSTALLER Plan of Treatment Health Maintenance Due Date Last Done Comments TdaP Immunization 1985 Hepatitis B Immunization (1 of 3 - 19+ 3-dose series) 2004 Pap Smear 2006 Human Papillomavirus (HPV) Immunization (1 - 3-dose SCDM series) 2012 Cervical Cancer Screening (CCS) 2015 HPV/Cotest 2015 SARS-COV-2 Immunization ( season) 2024 Influenza Immunization (#1) 2025 Respiratory Syncytial Virus (RSV) Immunization (Adult) (1 [...] HEPATITIS C ANTIBODY Today 09/26/2014 12:17 PM SOLAR PV INSTALLER Antinuclear factor positive from Last 3 Months or Most Recently Relevant to Health Maintenance Results * HEPATITIS C ANTIBODY (09/26/2014 12:17 PM SOLAR PV INSTALLER) hepatitis C antibody 0.11 <1 S/CO 09/26/2014 5:44 PM SOLAR PV INSTALLER [facility] Comment: Signal/Cutoff ratio < 0.79 is Nondetected Signal/Cutoff ratio 0.80-0.99 is Grayzone Signal/Cutoff ratio > 0.99 is Detected Supplemental assays are recommended if signal/cutoff ratio is >/=1.00. Signal/cutoff ratio result >/= 5.00 is 97% predictive of positivity for recombinant immunoblot assay (RIBA) and will be reported to the [place] Department of Public Health as required. Blood specimen (specimen) Venipuncture / Unknown 09/26/2014 12:17 PM SOLAR PV INSTALLER 09/26/2014 12:17 PM SOLAR PV INSTALLER us Troy Landaverde MD CHEMISTRY ORDERABLES Final Resul t [facility] [address] [place] [address] from Last 3 Months or Most Recently Relevant to Health Maintenance Insurance MEDICAID [facility] Care Teams Ordnance Officer Relationship Specialty Start Date End Date Bebe Bullock MD [address] [place] [phone] PCP - General Family Medicine 09/26/14
== END 2025-03-29 13:08 | disposition home or self-care (01) ==
PROVIDERS: Emergency Provider Nurse Practitioner Family; PCP Physician Assistant
DX: M79.674 Pain in right toe(s) (principal)
CPT/HCPCS: 73630; 99213; G0463